=== PATIENT | female | born 1980 | race Caucasian/White ===

== ENCOUNTER 2018-07-13 14:55 | Outpatient (REF) | payer MEDICAID, SELFPAY ==
[2018-07-13 20:34] LABS: Abs Immature Grans 0.03 k/cumm (0.0-0.09); Absolute Basophil Count 0.06 k/cumm (0.0-0.2); Absolute Eosinophil Count 0.17 k/cumm (0.0-0.7); Absolute Neutrophil Count 5.12 k/cumm (1.2-6.7); Basophils % 0.8; Eosinophils % 2.3; HCT 35.2 % (36.0-46.0); HGB 11.2 g/dL (12.0-15.5); Immature Grans % 0.4; Lymphocytes % 22.7; Mean Corp. HGB Concentration 31.8 g/dL (32.0-36.0); Mean Corpuscular Hemoglobin 30.1 pg (27.0-33.0); Mean Corpuscular Volume 94.6 fL (80-95); Mean Platelet Volume 10.5 fL (8.0-11.0); Monocytes % 5.3; Neutrophils % 68.5; Platelet Count 307 x1000/uL (130-400); RBC 3.72 m/cumm (4.00-5.20); RBC Distribution Width 12.9 % (11.7-14.6); Reticulocyte 1.7 % (0.5-2.4); White Blood Cell Count 7.48 k/cumm (4.4-10.8)
[2018-07-13 20:37] LABS: Bilirubin Negative (Negative); Blood Negative (Negative); Clarity Clear; Glucose Negative (Negative); Ketones Negative (Negative); Leukocyte Esterase Negative (Negative); Nitrite Negative (Negative); Specific Gravity >= 1.030 (1.005-1.025); Urobilinogen 0.2 EU/dL (Up TO 0.2); pH 5.5 (5-8)
[2018-07-13 20:57] LABS: ALT 24 U/L (12-78); AST 15 U/L (15-37); Albumin 3.7 g/dL (3.4-5.0); Alkaline Phosphatase 94 U/L (46-116); Anion Gap 8.3 mmol/L (3-11); BUN 16 mg/dL (7-18); Bilirubin, Total 0.2 mg/dL (0.2-1.0); CO2 26.7 mmol/L (21.0-32.0); CREATININE 1.12 mg/dL (0.55-1.02); Chloride 105 mmol/L (98-107); Estimated GFR 54.16 (mL/min/1.73m2); Ferritin 48 ng/mL (8-388); Glucose 85 mg/dL (70-100); Potassium 3.9 mmol/L (3.5-5.1); Sodium 140 mmol/L (136-145); TSH (W/Ref FT4) 1.91 uIU/mL (0.358-3.74); Total Protein 7.4 g/dL (6.4-8.2)
== END 2018-07-13 15:15 ==
LOC: NCHCN 14:55
PROVIDERS: PCP Nurse Practitioner Family; Visit Provider Family Medicine
DX: D64.9 Anemia, unspecified (principal); N28.9 Disorder of kidney and ureter, unspecified
CPT/HCPCS: 80053; 81003; 82728; 84443; 85025; 85045

== ENCOUNTER 2019-11-07 11:25 | Emergency (ER) | payer MEDICAID, SELFPAY ==
[2019-11-07] VITALS (32 sets, daily range): BP systolic 86–121; BP diastolic 63–85; PULSE 69–89; RESP 1–24; TEMP 36.7–37; O2SAT 92–100
--- NOTE | 2019-11-07 11:39 | W.ED.GENAD ---
Discharge Plan Disposition Patient Disposition: HOME Condition: Improving Discharge Details Chief Complaint: Chest Pain Clinical Impression: Acute bronchitis with bronchospasm Primary Care Provider: None,None ED Provider: Gio Argueta Home Meds and New Rx's Prescriptions: New doxycycline hyclate 100 mg capsule 100 mg PO BID 10 Days Qty: 20 RF: 0 prednisone 20 mg tablet 40 mg PO DAILY 5 Days Qty: 10 RF: 0 Continued topiramate [Topamax] 100 mg Tablet 100 mg PO QHS RF: 0 fexofenadine-pseudoephedrine [Muriel-D 12 Hour] 60-120 mg Tablet Extended Release 12 Hr 1 tab PO Q12H PRNRF: 0 bupropion HCl [Wellbutrin XL] 300 mg Tablet Extended Release 24 Hr 300 mg PO QHS RF: 0 Discharge Instructions Instructions: Acute Bronchitis (ED) Additional Instructions: May use provided inhaler 2 puffs every 4 hours as needed during times of illness. Continue efforts to decrease cigarette use. Return for worsening discomfort or any other acute concerns. May use Tylenol and/or ibuprofen as needed for discomfort or fever. Medical Decision Making 38-year-old female smoker presents with 5+ days of cough, congestion, production of sputum and achy, ill-defined left-sided chest discomfort with associated shortness of breath. She is not had any prolonged immobilization, travel and her exam does not reveal lower extremity edema. She arrives to the ER normal vital signs, oxygenation of 95% on room air, speaking in full sentences. Differentialincludes COPD exacerbation, bronchitis, must exclude PE. Patient had IV access established, laboratories obtained, referred for chest x-ray. She was given Solu-Medrol and an inhaled DuoNeb. Patient improved following steroids and DuoNeb. Her oxygenation remained normal as did her vital signs. Laboratories revealed normal CBC, chemistries are unremarkable but note of potassium 3.3. Troponin is negative as is d-dimer. Chest x-ray without focal infiltrate. Patient remains improved. Given an albuterol inhaler with bedside teaching. I will treat her for bronchitis and bronchospasm. She understands homecare including use of oral antibiotics and systemic burst of steroids with prednisone. ECG Data Attestation: I personally reviewed and interpreted this ECG (s) as follows: Interpretation: Normal sinus rhythm with a rate of 81, the QRS is narrow, first-degree AV block present with MN interval of 230, no ST segment elevation appreciated. HPI General Mode of arrival: ambulatory. Date/Time Provider Initiated Documentation: 11/07/19 11:29. Limitations to Documentation: no limitations. Information obtained by: patient and family. History of Present Illness 38 year old F presents to the emergency department with the chief complaint of Cough and left discomfort, described as moderate, Quality is described as dull and constant, and is localized to the chest and left. Patient reports no radiation. Patient started experiencing this unknown (Patient states 4 to 7 days but that she is quite unsure) and it has been constant. No relieving factors improve symptom(s), No exacerbating factors reported . Patient notes cough and shortness of breath; denies fever/chills. Patient did receive the following treatments prior to arrival, none Related Data Home Medications Medication Instructions Recorded Confirmed bupropion HCl [Wellbutrin XL] 300 mg PO QHS 11/07/19 11/07/19 doxycycline hyclate 100 mg PO BID 10 Days #20 cap 11/07/19 fexofenadine-pseudoephedrine 1 tab PO Q12H PRN 11/07/19 11/07/19 [Muriel-D 12 Hour] prednisone 40 mg PO DAILY 5 Days #10 tab 11/07/19 topiramate [Topamax] 100 mg PO QHS 11/07/19 11/07/19 Previous Rx's Medication Instructions Recorded doxycycline hyclate 100 mg PO BID 10 Days #20 cap 11/07/19 prednisone 40 mg PO DAILY 5 Days #10 tab 11/07/19 Allergies Allergy/AdvReac Type Severity Reaction Status Date / Time acetaminophen [From Vicodin] Allergy Unverified 11/07/19 13:00 codeine Allergy Unverified 11/07/19 13:00 hydrocodone [From Vicodin] Allergy Unverified 11/07/19 13:00 Review of Systems Narrative: Denies lower extremity pain or swelling. No prolonged travel. No fever. Continues to smoke 4 to 5 cigarettes/day. 8 systems reviewed and otherwise negative [facility] Social History Smoking/Tobacco Use Status: Current every day Tobacco Type: cigarettes Alcohol Intake: never Drug use: Never Substance use type: does not use Do you feel safe at home: Yes Do you feel safe in your relationship?: Yes Exam Narrative Exam Narrative: GEN: awake, alert, oriented 3. Pleasant, well groomed, interactive. HEAD: Normocephalic, atraumatic ENT: Mucous membranes moist, oropharynx unremarkable, External ear exam unremarkable EYES: PERRL, EOMI NECK: Full ROM, no HEVER, no menigismus CHEST/RESP: Nontender, bilateral end expiratory wheeze and diminished breath sounds throughout CARDIOVASCULAR: RRR, no murmur, rub nii. 2+ Rad pulse bilateral ABDOMEN: Soft, nontender, no mass. +Bowel sounds EXT: Full ROM, no edema, no rash Neuro: Grossly normal neurologic exam, conversant, interactive. Psych: Speech fluent, thoughts congruent, affect normal
[2019-11-07] MEDS: Normal Saline Flush 10 ML SYR IVP (12:03)
[2019-11-07] MEDS: methylPREDNISolone SUCC 125 MG VIAL IVP (12:03)
[2019-11-07] MEDS: Albuterol/Ipratropium 3 ML UPD VIAL UPD (12:04)
[2019-11-07 12:45] LABS: Abs Immature Grans 0.02 k/cumm (0.0-0.09); Absolute Basophil Count 0.08 k/cumm (0.0-0.2); Absolute Eosinophil Count 0.27 k/cumm (0.0-0.7); Absolute Lymphocyte Count 1.35 k/cumm (1.2-3.4); Absolute Monocyte Count 0.36 k/cumm (0.11-0.7); Absolute Neutrophil Count 3.57 k/cumm (1.2-6.7); Basophils % 1.4; Eosinophils % 4.8; HCT 36.8 % (36.0-46.0); HGB 12.2 g/dL (12.0-15.5); Immature Grans % 0.4 %; Lymphocytes % 23.9; Mean Corp. HGB Concentration 33.2 g/dL (32.0-36.0); Mean Corpuscular Hemoglobin 29.9 pg (27.0-33.0); Mean Corpuscular Volume 90.2 fL (80-95); Monocytes % 6.4; Neutrophils % 63.1; Platelet Count 282 x1000/uL (130-400); RBC 4.08 m/cumm (4.00-5.20); RBC Distribution Width 13.2 % (11.7-14.6); White Blood Cell Count 5.65 k/cumm (4.4-10.8)
[2019-11-07 12:59] LABS: ALT 19 U/L (14-59); AST 13 U/L (15-37); Albumin 3.8 g/dL (3.4-5.0); Alkaline Phosphatase 99 U/L (46-116); Anion Gap 9.4 mmol/L (3-11); BUN 16 mg/dL (7-18); Bilirubin, Total 0.4 mg/dL (0.2-1.0); CO2 26.6 mmol/L (21.0-32.0); CREATININE 1.08 mg/dL (0.55-1.02); Calcium 9.4 mg/dL (8.5-10.1); Chloride 103 mmol/L (98-107); Estimated GFR 56.19 (mL/min/1.73m2); Glucose 101 mg/dL (74-106); Magnesium 1.9 mg/dL (1.8-2.4); Potassium 3.3 mmol/L (3.5-5.1); Sodium 139 mmol/L (136-145); Total Protein 7.8 g/dL (6.4-8.2)
[2019-11-07 13:02] LABS: Troponin I < 0.05 ng/Ml (<0.06)
--- NOTE | 2019-11-07 13:14 | DI.RAD_ITS ---
EXAM: XR CHEST 2V PA LATERAL CLINICAL HISTORY: Cough, sputum, wheeze. TECHNIQUE: 2D digital imaging was performed. COMPARISON: No exams were available for comparison FINDINGS: LUNGS: Clear. No pleural abnormality seen. HEART: Normal. MEDIASTINUM: Normal. OTHER FINDINGS:Normal. BONE:Normal. IMPRESSION: No acute pulmonary findings.
[2019-11-07 13:17] LABS: D-Dimer 358 ng/mlFEU (<500)
[2019-11-07] MEDS: Albuterol HFA 8 GM 60 PUFF INH IH (14:19)
== END 2019-11-07 14:31 | disposition home or self-care (01) ==
PROVIDERS: Emergency Provider Emergency Medicine
DX: J20.9 Acute bronchitis, unspecified (principal); F17.210 Nicotine dependence, cigarettes, uncomplicated
CPT/HCPCS: 80053; 93005; 94640; 96374; 99284; 71046; 83735; 84484; 85025; 85379; 93010; 99283; J2930; J7620

== ENCOUNTER 2019-12-26 11:21 | Outpatient (REF) | payer MEDICAID, SELFPAY ==
[2019-12-26 19:54] LABS: Hemoglobin A1C 6.1 % (3.8-5.6)
[2019-12-26 20:00] LABS: ALT 23 U/L (14-59); AST 14 U/L (15-37); Albumin 3.9 g/dL (3.4-5.0); Alkaline Phosphatase 81 U/L (46-116); Anion Gap 8.7 mmol/L (3-11); BUN 15 mg/dL (7-18); Bilirubin, Total 0.2 mg/dL (0.2-1.0); CO2 26.3 mmol/L (21.0-32.0); CREATININE 1.23 mg/dL (0.55-1.02); Calcium 9.2 mg/dL (8.5-10.1); Calculated LDL 179 mg/dL (<100); Chloride 104 mmol/L (98-107); Cholesterol 283 mg/dL (<200); Estimated GFR 48.12 (mL/min/1.73m2); Glucose 96 mg/dL (74-106); HDL Cholesterol 64 mg/dL (40-60); Potassium 4.1 mmol/L (3.5-5.1); Sodium 139 mmol/L (136-145); TSH (W/Ref FT4) 3.25 uIU/mL (0.36-3.74); Total Protein 7.1 g/dL (6.4-8.2); Triglyceride 200 mg/dL (<150)
[2019-12-26 20:14] LABS: Vitamin D 25 Total 14.9 ng/ml (30-100)
== END 2019-12-26 11:41 ==
LOC: NCHCN 11:21
PROVIDERS: Visit Provider Nurse Practitioner
DX: E78.1 Pure hyperglyceridemia (principal); E78.5 Hyperlipidemia, unspecified; E66.9 Obesity, unspecified; R73.09 Other abnormal glucose; Z13.21 Encounter for screening for nutritional disorder
CPT/HCPCS: 80053; 80061; 82306; 83036; 84443

== ENCOUNTER 2020-06-13 17:52 | Emergency (ER) | payer MEDICAID, SELFPAY ==
--- NOTE | 2020-06-13 18:04 | W.ED.GENAD ---
Discharge Plan Disposition Patient Disposition: HOME Condition: Good Discharge Details Chief Complaint: EarProblem Clinical Impression: Otitis media Primary Care Provider: None,None ED Provider: Mar Rodriguez Home Meds and New Rx's Prescriptions: New amoxicillin 875 mg tablet 875 mg PO BID Qty: 14 RF: 0 Continued topiramate [Topamax] 100 mg Tablet 100 mg PO QHS RF: 0 fexofenadine-pseudoephedrine [Muriel-D 12 Hour] 60-120 mg Tablet Extended Release 12 Hr 1 tab PO Q12H PRNRF: 0 bupropion HCl [Wellbutrin XL] 300 mg Tablet Extended Release 24 Hr 300 mg PO QHS RF: 0 Discharge Instructions Instructions: Ear Infection (ED) Additional Instructions: Encourage water intake. Tylenol and/or Ibuprofen as needed for discomfort. Please take the antibiotics as prescribed. Even if symptoms improve, please take entire course. Please follow-up with primary care next week for reevaluation. If you develop any new or worsening symptoms please seek care urgently once again Referrals: Marissa Robles [NURSE PRACTITIONER] - Discharge Data Discharge Date/Time-TO BE ENTERED AT DEPARTURE: 06/13/20 18:30 Medical Decision Making Marshall is a pleasant 39 year old female presenting today for evaluation of right sided ear pain that began 3 weeks ago. Pain has waxed/waned but is now persistant and worsening. Denies fevers/chills. Has not noted drainage. Has had multiple episodes of otitis media, has tympanoplasty tubes bilaterally. On exam, nontoxic. Otitis media with purulent drainage from right tube. No mastoid tenderness. She reports her ENT physician typically treats her with amoxicillin with good results, it has been 1 year since last treated. Will do the same. Advised f/u. Discussed new/worsening symptoms that should prompt her to seek care urgently oce again. All questions and concerns addressed. HPI General Mode of arrival: ambulatory. Date/Time Provider Initiated Documentation: 06/13/20 18:04. Limitations to Documentation: no limitations. Information obtained by: patient and RN notes reviewed. History of Present Illness 39 year old F presents to the emergency department with the chief complaint of right ear pain, described as moderate and similar to prior episodes (reports long history of recurrent otitis media), with intensity rated at 7. Quality is described as aching, and is localized to the right. Patient reports no radiation. Patient started experiencing this day(s) and it has been constant. No relieving factors improve symptom(s), No exacerbating factors reported . Patient notes no other symptoms. and headaches; denies fever/chills, rash and shortness of breath. Patient did receive the following treatments prior to arrival, none Related Data Home Medications Medication Instructions Recorded Confirmed bupropion HCl [Wellbutrin XL] 300 mg PO QHS 11/07/19 11/07/19 fexofenadine-pseudoephedrine 1 tab PO Q12H PRN 11/07/19 11/07/19 [Muriel-D 12 Hour] topiramate [Topamax] 100 mg PO QHS 11/07/19 11/07/19 amoxicillin 875 mg PO BID #14 tab 06/13/20 Previous Rx's Medication Instructions Recorded amoxicillin 875 mg PO BID #14 tab 06/13/20 Allergies Allergy/AdvReac Type Severity Reaction Status Date / Time acetaminophen [From Vicodin] Allergy Unverified 06/13/20 18:26 codeine Allergy Unverified 06/13/20 18:26 hydrocodone [From Vicodin] Allergy Unverified 06/13/20 18:26 General ABIGAIL: 2 Review of Systems Constitutional Constitutional: Reports as per HPI, Denies chills, Denies fever(s) and Denies headache(s) Eyes Eyes: Reports as per HPI, Denies eye discharge and Denies irritation ENT Ears, Nose, Mouth, and Throat: Reports as per HPI and Denies headache(s) Cardiovascular Cardiovascular: Reports as per HPI, Denies chest pain and Denies dyspnea Respiratory Respiratory: Reports as per HPI and Denies dyspnea Gastrointestinal Gastrointestinal: Reports as per HPI, Denies abdominal pain, Denies change in bowel habits, Denies nausea and Denies vomiting Integumentary/Breasts Skin/Breast: Reports as per HPI and Denies rash Neurologic Neurologic: Reports as per HPI and Denies headache(s) REPLACED BY [facility] Social History Smoking/Tobacco Use Status: Current every day Tobacco Type: cigarettes Alcohol Intake: never Drug use: Never Substance use type: does not use Do you feel safe at home: Yes Do you feel safe in your relationship?: Yes Exam Const General: cooperative, healthy appearing, comfortable, no acute distress, well developed and well groomed Nutritional Appearance: average body habitus and well nourished Orientation: alert and awake [facility] Head: normal to inspection, normocephalic and atraumatic Ears: hearing grossly normal bilaterally, external ears normal, TM normal on the right (tube in place with purulent drainage, swelling), TM normal on the left (tube in place), mastoids normal, normal mastoids bilaterally and no periauricular adenopathy General nose exam: external nose normal and nares normal Face and sinus: normal facial exam, sinuses nontender and face symmetric Mouth: oral mucosae normal, lip normal, tongue normal, oropharynx normal and moist mucous membranes Teeth and gingiva: dentition normal Throat: posterior oropharynx normal, tonsils normal and uvula midline Eyes General: appearance normal, both eyes and all related structures Neck Neck: normal visual inspection, full ROM, no lymphadenopathy and no meningeal signs Resp Effort & Inspection: normal respiratory effort, able to speak in complete sentences and no respiratory distress Auscultation: clear to auscultation bilaterally, no rales, no rhonchi and no wheezes Cardio Rate: regular rate Rhythm: regular rhythm Heart Sounds: S1 normal and S2 normal Skin General skin exam: no rashes or lesions noted Neuro General: patient alert and patient awake Cognition: normal cognition Speech: speech normal Gait: normal gait Psych Appearance: grossly normal and well kempt Mental Status: mental status grossly normal Speech and Movement: speech and movement normal
[2020-06-13 18:17] VITALS: BP 142/103; PULSE 91; RESP 14; TEMP 36.6; O2SAT 97
== END 2020-06-13 18:30 | disposition home or self-care (01) ==
PROVIDERS: Emergency Provider Physician Assistant
DX: H66.91 Otitis media, unspecified, right ear (principal)
CPT/HCPCS: 99283

== ENCOUNTER 2021-02-06 16:30 | Outpatient (REF) | payer MEDICAID, SELFPAY ==
[2021-02-06 19:06] LABS: HCT 37.9 % (36.0-46.0); HGB 12.5 g/dL (11.2-15.7); MCH 30.9 pg (27.0-33.0); MCV 93.8 fL (80-95); MPV 9.9 fL (8.0-11.0); Platelet Count 277 10^3/uL (130-400); RBC 4.04 10^6/uL (3.93-5.22); RDW 12.1 % (11.7-14.6); RDW-SD 41.7 fL
[2021-02-06 20:10] LABS: ALT 38 U/L (14-59); AST 23 U/L (15-37); Albumin 3.9 g/dL (3.4-5.0); Alkaline Phosphatase 67 U/L (46-116); Anion Gap 6.7 mmol/L (3-11); BUN 15 mg/dL (7-18); Bilirubin, Total 0.3 mg/dL (0.2-1.0); CO2 27.3 mmol/L (21.0-32.0); CREATININE 1.1 mg/dL (0.55-1.02); Calcium 9.4 mg/dL (8.5-10.1); Chloride 103 mmol/L (98-107); Estimated GFR 54.47 (mL/min/1.73m2); Ferritin 36 ng/mL (8-252); Folate 4.6 ng/mL (8.6-20.0); Glucose 106 mg/dL (74-106); Potassium 4.3 mmol/L (3.5-5.1); Sodium 137 mmol/L (136-145); TSH (W/Ref FT4) 2.44 uIU/mL (0.36-3.74); Total Protein 7.3 g/dL (6.4-8.2); Vitamin B12 357 pg/mL (193-986)
== END 2021-02-06 16:31 | disposition home or self-care (01) ==
LOC: NCHCN 16:30
PROVIDERS: PCP Family Medicine; Visit Provider Family Medicine
DX: D64.9 Anemia, unspecified (principal); R63.5 Abnormal weight gain; R73.03 Prediabetes
CPT/HCPCS: 80053; 85027; 82607; 82728; 82746; 83036; 84443

== ENCOUNTER 2021-03-05 03:29 | Outpatient (CLI) | payer MEDICAID, SELFPAY ==
[2021-03-05 09:35] LABS: HGB 12.6 g/dL (11.2-15.7); MCH 30.3 pg (27.0-33.0); MCHC 33.2 % (32.0-36.0); MCV 91.3 fL (80-95); MPV 9.7 fL (8.0-11.0); Platelet Count 298 10^3/uL (130-400); RBC 4.16 10^6/uL (3.93-5.22); RDW 12.5 % (11.7-14.6); RDW-SD 41.8 fL; WBC 6.32 10^3/uL (4.4-10.8)
== END 2021-03-05 03:30 | disposition home or self-care (01) ==
LOC: LBO 03:29
PROVIDERS: PCP Nurse Practitioner; Visit Provider Obstetrics & Gynecology Gynecology
DX: A63.0 Anogenital (venereal) warts (principal); Z20.822 Contact with and (suspected) exposure to COVID-19; Z01.818 Encounter for other preprocedural examination; Z01.812 Encounter for preprocedural laboratory examination
CPT/HCPCS: 36415; 85027; 86850; 86900; 86901; 87635

== ENCOUNTER 2021-03-07 12:20 | Day surgery (SDC) | payer MEDICAID, SELFPAY ==
[2021-03-07] VITALS (9 sets, daily range): BP systolic 87–134; BP diastolic 45–102; PULSE 86–103; RESP 9–18; TEMP 36.4–36.9; O2SAT 93–100; BMI 39.6
--- NOTE | 2021-03-07 13:12 | W.ANESPRE ---
General Info Date of Service Date Performed: 03/07/21 Height: 5 ft 5 in Weight: 108.2 kg Body Mass Index (BMI): 39.6 Surgical Procedure: Operation Date: 03/07/21 14:10 Proposed Procedures Side Surgeon p EXCISION OF LT VULVAR GENITAL WARTS Left Roro Jensen MD Meds Allergies and Home Medications Allergies Allergy/AdvReac Type Severity Reaction Status Date / Time acetaminophen [From Vicodin] Allergy Severe Itching Unverified 03/07/21 12:42 hydrocodone [From Vicodin] Allergy Severe Itching Unverified 03/07/21 12:42 codeine AdvReac Intermediate pt states Unverified 03/07/21 12:42 I get extremely hyper Home Medication Medication Instructions Recorded bupropion HCl [Wellbutrin XL] 300 mg PO QHS 11/07/19 fexofenadine-pseudoephedrine 1 tab PO Q12H PRN 11/07/19 [Muriel-D 12 Hour] albuterol sulfate [ProAir HFA] 2 puff INHALATION PRN PRN 03/07/21 omeprazole 40 mg PO DAILY 03/07/21 Current Visit Medications: Current Medications Generic Name Dose Route Start Last Admin Trade Name Freq PRN Reason Stop Dose Admin Ringer's Solution 1,000 mls @ 125 mls/hr 03/07/21 06:00 IV 04/05/21 23:59 INFUSION AKIL IV Miscellaneous Supplies 1 each 03/07/21 06:00 Iv Access IV 04/05/21 23:59 DIRECTED AKIL Sodium Chloride 0 ml 03/07/21 06:00 Normal Saline Flush 10 Ml Syr IV 04/05/21 23:59 PRN PRN Sodium Chloride 0 ml 03/07/21 06:00 Normal Saline 10 Ml Vial IJ 04/05/21 23:59 DIRECTED PRN Sterile Water 0 ml 03/07/21 06:00 Water,Injection,Sterile 10 Ml Vial IJ 04/05/21 23:59 DIRECTED PRN PFSH Active Problems Active Problems: Problem Status Onset Code Chronic infection of both ears H66.93 Tinnitus, bilateral H93.13 Condyloma acuminata A63.0 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 Hx of hysterectomy, total Z90.710 Depression F32.9 GERD (gastroesophageal reflux disease) K21.9 Tobacco use Z72.0 Urinary incontinence R32 Hyperlipidemia E78.5 Cervical disc disorder with radiculopathy M50.10 Asthma J45.909 Obstructive sleep apnea G47.33 Medical History Medical History Asthma Cervical disc disorder with radiculopathy Depression GERD (gastroesophageal reflux disease) Hyperlipidemia Obstructive sleep apnea pt denies this states she hasnt had it for 10 years Tobacco use Urinary incontinence Surgical History Surgical History (Updated 03/07/21 @ 12:56 by Katie Santos) History of carpal tunnel release of both wrists History of section Hx of appendectomy Hx of cholecystectomy Hx of hysterectomy, total Hx of shoulder surgery Left Hx of tonsillectomy Tobacco Smoking/Tobacco Use Status: Current every day Tobacco Type: cigarettes Alcohol Alcohol Intake: never Substance Use Substance use: Never Substance use type: does not use Prental History History 3 Para Hx # Term Pregnancies 3 Multiple births Hx # Pregnancies Ectopic pregnancies AB induced Hx Number of Living Children AB spontaneous Vital Signs and Lab Results Vital Signs Most Recent Vital Signs in EMR: Most Recent Vital Signs Temp Pulse Resp BP Pulse Ox 36.5 C 103 H 18 134/102 H 96 03/07/21 12:58 03/07/21 12:58 03/07/21 12:58 03/07/21 12:58 03/07/21 12:58 Lab Results Blood Type / Crossmatch: Patient ABO/Rh A Positive 03/05/21 09:12 03/05/21 Antibody Screen Negative 03/05/21 09:12 03/05/21 Complete Blood Count: White Blood Count 6.32 10^3/uL (4.4-10.8) 03/05/21 09:12 03/05/21 Red Blood Count 4.16 10^6/uL (3.93-5.22) 03/05/21 09:12 03/05/21 Hemoglobin 12.6 g/dL (11.2-15.7) 03/05/21 09:12 03/05/21 Hematocrit 38.0 % (36.0-46.0) 03/05/21 09:12 03/05/21 Platelet Count 298 10^3/uL (130-400) 03/05/21 09:12 03/05/21 Complete Metabolic Panel: Sodium Level 137 mmol/L (136-145) 02/06/21 13:45 02/06/21 Potassium Level 4.3 mmol/L (3.5-5.1) 02/06/21 13:45 02/06/21 Chloride Level 103 mmol/L (98-107) 02/06/21 13:45 02/06/21 Carbon Dioxide Level 27.3 mmol/L (21.0-32.0) 02/06/21 13:45 02/06/21 Blood Urea Nitrogen 15 mg/dL (7-18) 02/06/21 13:45 02/06/21 Creatinine 1.1 mg/dL (0.55-1.02) H 02/06/21 13:45 02/06/21 Calcium Level 9.4 mg/dL (8.5-10.1) 02/06/21 13:45 02/06/21 Albumin 3.9 g/dL (3.4-5.0) 02/06/21 13:45 02/06/21 Glucose Level 106 mg/dL (74-106) 02/06/21 13:45 02/06/21 Hemoglobin A1c 6.0 % (<5.7) H 02/06/21 13:45 02/06/21 Liver Function Panel: Alanine Aminotransferase (ALT/SGPT) 38 U/L (14-59) 02/06/21 13:45 02/06/21 Aspartate Amino Transf (AST/SGOT) 23 U/L (15-37) 02/06/21 13:45 02/06/21 Coagulation Panel: No Data to Display Cardiac Panel: No Data to Display Arterial Blood Gas: No Data to Display Venous Blood Gas: No Data to Display Pancreas Panel: No Data to Display Thyroid Panel: Thyroid Stimulating Hormone (TSH) 2.44 uIU/mL (0.36-3.74) 02/06/21 13:45 02/06/21 Infectious Disease: Coronavirus (COVID-19)(PCR) Negative (Negative) 03/05/21 10:18 03/05/21 Coronavirus 2019 Source Nasal/nares 03/05/21 10:18 03/05/21 Blood Cultures: No Data to Display Toxicology Panel: No Data to Display Panel: No Data to Display Anesthesia Assessment and Plan Anesthesia History Personal History: No History of Anesthesia Complications Family History: No Family History of Anesthesia Complications Exercise Tolerance Exercise Tolerance: Metabolic Equivalents>4 Pertinent Negatives Pertinent Negatives: No Symptoms of GERD Cardiac & Pulmonary Exam Cardiac Exam: Normal S1/S2 Heart Sounds Pulmonary Exam: Clear Bilateral Breath Sounds Airway Exam Known Difficult Airway: No Mallampati Class: 2 Mouth Opening: Normal (> 3cm) Thyromental Distance: Greater than 3 cm Neck Range of Motion: Full ROM Neck Circumference: Normal Teeth Condition: Normal Dentition ASA Classification ASA Score: ASA 3 Emergency Case?: No NPO Status NPO Status: NPO Clears >2 hours, Solids >8 hours Status Status: History of Hysterectomy Anesthesia Plan Anesthesia Technique: General Anesthesia Airway Planned: LMA Monitors Used: Standard Monitors
[2021-03-07] MEDS: Lactated Ringers 1,000 ML 125 ML IV (13:15)
[2021-03-07] MEDS: Bacitracin 30 GM TUBE (14:52)
--- NOTE | 2021-03-07 15:20 | W.PM.DSUDISC ---
Discharge Plan Disposition Patient Disposition: HOME Condition: Fair Discharge Details Reason For Visit: Fulguration of vulvar condyloma Attending Provider: Roro Jensen Primary Care Provider: Marissa Robles Home Meds and New Rx's Prescriptions: No Action fexofenadine-pseudoephedrine [Muriel-D 12 Hour] 60-120 mg Tablet Extended Release 12 Hr 1 tab PO Q12H PRNRF: 0 bupropion HCl [Wellbutrin XL] 300 mg Tablet Extended Release 24 Hr 300 mg PO QHS RF: 0 omeprazole 40 mg capsule,delayed release(DR/EC) 40 mg PO DAILY RF: 0 albuterol sulfate [ProAir HFA] 90 mcg/actuation HFA aerosol inhaler 2 puff INHALATION PRN PRNRF: 0 Discharge Instructions Additional Instructions: Apply bacitracin ointment several times a day to the treatment areas. You may wash and shower and gently pat dry the vulva. Take Ibuprofen 600mg or 325mg of Acetaminophen every 6 hours for pain. follow up with Dr. Jensen at your scheduled time in 2 weeks. Stand Alone Forms: Anesthesia Discharge Inst., DSU Post Gynecology Surgery Referrals: Roro Jensen MD [ [facility] STAFF PHYSICIAN] - 03/14/21 2:40 pm Activity:: Activity as Tolerated Diet:: As Tolerated Discharge Orders Discharge Orders: Discharge Order (Routine); Ordered 03/07/21 Ordered By: Roro Jensen DS: Diagnosis Discharge Diagnosis (1) Condyloma acuminata: Status: Acute
--- NOTE | 2021-03-07 15:31 | W.ANESPOSTOP ---
Postoperative Evaluation Date, Time and Location Date Performed: 03/07/21 Time Performed: 15:31 Patient Location: PACU Vital Signs Most Recent Imported Vital Signs: Most Recent Vital Signs Temp Pulse Resp BP Pulse Ox 36.9 C 95 H 9 L 108/64 97 03/07/21 15:25 03/07/21 15:25 03/07/21 15:25 03/07/21 15:25 03/07/21 15:25 Pain Score Most Recent Pain Score: Most Recent Pain Score Pain Level 0 03/07/21 12:58 Assessment Mental Status: Arousable with meaningful communication Airway and Respiratory Function: Patent airway with normal (patient baseline) respiratory exam Cardiovascular Function: Hemodynamically Stable Hydration Status: Adequately Hydrated Nausea & Vomiting: No Nausea or Vomiting Pain: Pt. Denies Any Pain Peripheral Nerve Block: Patient did not receive a nerve block
--- NOTE | 2021-03-07 16:03 | W.PM.OP ---
Date of service: 03/07/21 Time of Service: 16:03 Operative Note Operative Note DATE OF PROCEDURE: 03/07/21 PRE-OP DIAGNOSIS: Condyloma acuminatum of vulva and perianal region PROCEDURE: Dessication of vulvar condyloma lesions using electrocautery. SURGEON: Roro Jensen ANESTHESIA TYPE: General LMA/ETT Refer to Anesthesia Record ESTIMATED BLOOD LOSS: 0 PATHOLOGY: none sent COMPLICATIONS: None Patient was transported to: PACU Patient's condition: stable Indications: Aylin is a 40-year-old P3 female who was referred by Kayley Richards MD for symptomatic genital warts not amenable to treatment in the office. The warts themselves were not particularly large but were present on the multiple locations on the left vulva and perianal region. Findings: Approximately twenty 2 mm flat condyloma lesions occupying left labia labial fourchette crural fold and perianal region. Procedure Description: Patient was brought to the operating room placed in the dorsal supine position and laryngeal mask anesthesia was administered without difficulty. She was then placed in the dorsolithotomy position in yellowfin stirrups after application of SCDs. Surgical timeout was performed. She was prepped and draped in the usual sterile fashion. 1% Lidocaine with a dilute solution of Epinephrine as infiltrated under each condyloma lesion. A Bovie electrocautery with a needlepoint tip and current of 30/30 blend was then used to dessicate each lesion to the dermal layer of the skin. All sites were hemostatic at the completion of the procedure. Bacitracin ointment was applied to the treatment sites. Patient was placed in the supine position, awakened from anesthesia, extubated and transported to recovery area in stable condition. All sponge, laps, and needle counts were correct x2.
== END 2021-03-07 16:35 | disposition home or self-care (01) ==
PROVIDERS: PCP Nurse Practitioner; Visit Provider Obstetrics & Gynecology Gynecology
PROC: (CPT 56740; principal; 2021-03-07 14:00)
DX: A63.0 Anogenital (venereal) warts (principal)
CPT/HCPCS: 56501; J1100; J1885; J2001; J2250; J2405; J2704

== ENCOUNTER 2021-04-30 14:59 | Outpatient (REF) | payer MEDICAID, SELFPAY ==
[2021-04-30 22:02] LABS: HCT 38.2 % (36.0-46.0); HGB 12.4 g/dL (11.2-15.7); MCH 29.2 pg (27.0-33.0); MCHC 32.5 % (32.0-36.0); MCV 89.9 fL (80-95); MPV 10.4 fL (8.0-11.0); Platelet Count 314 10^3/uL (130-400); RBC 4.25 10^6/uL (3.93-5.22); RDW 12.7 % (11.7-14.6); RDW-SD 41.9 fL; WBC 5.81 10^3/uL (4.4-10.8)
[2021-04-30 22:32] LABS: Vitamin D 25 Total 14.5 ng/mL (30-100)
[2021-04-30 22:39] LABS: Ferritin 40 ng/mL (8-252); Folate 3.4 ng/mL (8.6-20.0); Vitamin B12 305 pg/mL (193-986)
[2021-05-06 14:32] LABS: IgA 179 mg/dL (85-499); Interpretation (See Note); Tissue Transglutaminase IgA <1.2 U/mL (<4.0)
== END 2021-04-30 15:00 | disposition home or self-care (01) ==
LOC: NCHCN 14:59
PROVIDERS: PCP Nurse Practitioner; Visit Provider Family Medicine
DX: R53.83 Other fatigue (principal); D52.9 Folate deficiency anemia, unspecified; E55.9 Vitamin D deficiency, unspecified
CPT/HCPCS: 82306; 82784; 83516; 85027; 82607; 82728; 82746

== ENCOUNTER 2021-06-05 10:09 | Emergency (ER) | payer MEDICAID, SELFPAY ==
[2021-06-05] VITALS (17 sets, daily range): BP systolic 108–164; BP diastolic 85–120; PULSE 86–112; RESP 18; TEMP 36.1–36.2; O2SAT 95–97
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
[2021-06-05 10:24] LABS: Bilirubin Negative (Negative); Blood Negative (Negative); Clarity Clear (Clear); Glucose 100 mg/dL (Negative); Ketones Negative (Negative); Leukocyte Esterase Negative (Negative); Nitrite Negative (Negative); Specific Gravity >= 1.030 (1.005-1.025); Urobilinogen 0.2 EU/dL (Up TO 0.2); pH 5.5 (5-8)
[2021-06-05 11:01] LABS: Abs Immature Grans 0.03 10^3/uL (0.0-0.06); Absolute Basophil Count 0.08 10^3/uL (0.0-0.2); Absolute Eosinophil Count 0.13 10^3/uL (0.0-0.7); Absolute Lymphocyte Count 1.84 10^3/uL (1.2-3.4); Absolute Monocyte Count 0.47 10^3/uL (0.1-0.8); Absolute Neutrophil Count 4.23 10^3/uL (1.2-6.7); Basophils % 1.2; Eosinophils % 1.9; HGB 12.3 g/dL (11.2-15.7); Immature Grans % 0.4; Lymphocytes % 27.1; MCHC 32.4 % (32.0-36.0); MCV 89.6 fL (80-95); MPV 9.9 fL (8.0-11.0); Monocytes % 6.9; Neutrophils % 62.5; Nucleated RBC 0 %; Platelet Count 295 10^3/uL (130-400); RBC 4.24 10^6/uL (3.93-5.22); RDW 12.8 % (11.7-14.6); RDW-SD 42.3 fL; WBC 6.78 10^3/uL (4.4-10.8)
[2021-06-05] MEDS: Ketorolac 30 MG/ML VIAL IVP (11:01)
[2021-06-05] MEDS: Lidocaine 5% Patch 1 PATCH TP (11:01)
[2021-06-05 11:21] LABS: ALT 41 U/L (14-59); AST 22 U/L (15-37); Albumin 3.8 g/dL (3.4-5.0); Alkaline Phosphatase 66 U/L (46-116); Anion Gap 6.3 mmol/L (3-11); BUN 15 mg/dL (7-18); Bilirubin, Total 0.3 mg/dL (0.2-1.0); CO2 26.7 mmol/L (21.0-32.0); Calcium 9.1 mg/dL (8.5-10.1); Chloride 103 mmol/L (98-107); Glucose 130 mg/dL (74-106); Lipase 129 U/L (73-393); Sodium 136 mmol/L (136-145); Total Protein 7.5 g/dL (6.4-8.2)
== END 2021-06-05 12:57 | disposition home or self-care (01) ==
PROVIDERS: Emergency Provider Physician Assistant; PCP Nurse Practitioner
DX: R07.82 Intercostal pain (principal)
CPT/HCPCS: 36415; 80053; 83690; 96374; 99284; 81003; 85025; 99283; J1885

== ENCOUNTER 2021-06-07 11:27 | Outpatient (CLI) | payer MEDICAID, SELFPAY ==
--- NOTE | 2021-06-07 11:34 | DI.RAD_ITS ---
Exam(s) XR RIBS LT W PA LAT CHEST EXAM: XR RIBS LT W PA LAT CHEST CLINICAL HISTORY: LT SIDED RIB PAIN, R07.81 TECHNIQUE: 2D digital imaging was performed. COMPARISON: No exams were available for comparison FINDINGS: MEDIASTINUM: Normal. HEART: Normal. PULMONARY VASCULATURE: Normal. LUNGS: Clear. PLEURAL SPACE: No pleural effusion or pneumothorax. BONE:Normal. LEFT RIBS: Normal. OTHER FINDINGS:Normal. IMPRESSION: 1. No acute pulmonary findings. 2. Unremarkable left ribs. DATA REPOSITORY: RADIATION DOSE DELIVERED:
== END 2021-06-07 11:47 ==
PROVIDERS: PCP Nurse Practitioner; Visit Provider Physician Assistant Medical
DX: R07.81 Pleurodynia (principal)
CPT/HCPCS: 71046; 71100

== ENCOUNTER 2021-08-29 10:52 | Emergency (ER) | payer MEDICAID, SELFPAY ==
[2021-08-29] VITALS (38 sets, daily range): BP systolic 130–162; BP diastolic 81–114; PULSE 82–112; RESP 9–20; TEMP 36.1–36.2; O2SAT 93–99
--- NOTE | 2021-08-29 10:45 | RT.EKG_ITS ---
APPROVED REPORT Exam: Resting ECG Reason for Exam: chest pain Patient Location: E HR:105 bpm ECG Measurements Heart Rate 105 AXIS MS 215 P 48 QRSd 88 QRS 46 QT 332 T 16 QTc 439 Conclusion Sinus tachycardia...rate> 99 Prolonged MS interval...MS >205, V-rate 91-120. Sinus. No STEMI. I have reviewed and interpreted ECG and agree with software generated interpretation.
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
[2021-08-29 11:38] LABS: Abs Immature Grans 0.03 10^3/uL (0.0-0.06); Absolute Basophil Count 0.06 10^3/uL (0.0-0.2); Absolute Eosinophil Count 0.08 10^3/uL (0.0-0.7); Absolute Lymphocyte Count 1.48 10^3/uL (1.2-3.4); Absolute Monocyte Count 0.53 10^3/uL (0.1-0.8); Absolute Neutrophil Count 4.25 10^3/uL (1.2-6.7); Basophils % 0.9; Eosinophils % 1.2; HCT 37.4 % (36.0-46.0); Immature Grans % 0.5; MCH 28.9 pg (27.0-33.0); MCHC 32.1 % (32.0-36.0); MCV 90.1 fL (80-95); MPV 9.9 fL (8.0-11.0); Monocytes % 8.2; Neutrophils % 66.2; Nucleated RBC 0 %; Platelet Count 278 10^3/uL (130-400); RBC 4.15 10^6/uL (3.93-5.22); RDW 13.1 % (11.7-14.6); RDW-SD 43.3 fL; WBC 6.43 10^3/uL (4.4-10.8)
[2021-08-29 11:56] LABS: ALT 43 U/L (14-59); AST 20 U/L (15-37); Albumin 3.9 g/dL (3.4-5.0); Alkaline Phosphatase 75 U/L (46-116); Anion Gap 7.6 mmol/L (3-11); BUN 21 mg/dL (7-18); Bilirubin, Total 0.4 mg/dL (0.2-1.0); CO2 27.4 mmol/L (21.0-32.0); Calcium 9.2 mg/dL (8.5-10.1); Chloride 103 mmol/L (98-107); Glucose 128 mg/dL (74-106); Sodium 138 mmol/L (136-145); Total Protein 7.8 g/dL (6.4-8.2)
[2021-08-29 11:57] LABS: Troponin I < 0.05 ng/mL (<0.06)
--- NOTE | 2021-08-29 12:15 | DI.CT_ITS ---
Exam(s) CT CHEST PE CTA EXAM: CT CHEST PE CTA CLINICAL HISTORY: L sided chest pain, r/o PE. TECHNIQUE: Imaging Protocol: CT angiography of the chest was performed using pulmonary embolus jarrell col. Multi planar reconstructions were performed. CONTRAST MATERIAL: Intravenous: Omnipaque 350 Contrast volume: 100 cc COMPARISON: CR XR RIBS LT W PA LAT CHEST from 06/07/2021 CR XR RIBS LT W PA LAT CHEST from 06/07/2021 FINDINGS: CHEST: PULMONARY ARTERIES: There are no intraluminal filling defects to suggest acute pulmonary emboli. LUNGS: There are no infiltrates nor evidence of pulmonary infarction.. There is a 6 millimeter noncal cified nodule in the right lower lobe lateral basal segment. In the opposite-left lung there is a 5 millimeter noncalcified nodule in the lateral basal segment of the left lower lobe. There is also mi ld focal pleural thickening in the left lung base in the posterior basal segment, measuring 8 by 3 mi llimeters. There are no pleural effusions. No focal findings in the trachea and mainstem bronchi. MEDIASTINUM: There is no hilar nor mediastinal adenopathy. Visualized thyroid unremarkable. CARDIAC: Heart size is upper normal. There is no pericardial effusion.Caliber of the thoracic aorta is within normal limits. No dissection there is no significant shift of the interventricular septum. PARTIALLY VISUALIZED UPPERMOST ABDOMEN: No adrenal findings. No splenomegaly. Hepatic steatosis not ed. Gallbladder surgically absent. OSSEOUS: No significant osseous lesions.. IMPRESSION: 1. No evidence of acute pulmonary emboli. No evidence of pulmonary infarction.No pleural effusions. 2. There is a solitary noncalcified small nodule in each lung. There is a 6 millimeter nodule in the right lower lobe and a 5 millimeter nodule in left lower lobe. Also focal area of pleural thickenin g in the left lower lobe measuring 8 x 3 millimeters. 3. No intrathoracic adenopathy. Incidental upper abdominal findings as described above. Recommend follow up CT scan in 6 months, given the incidental lung nodules noted. RADIATION DOSE DELIVERED: 562.43mGy.cm Total DLP DATA REPOSITORY: All CT scans at this facility are submitted to the National Radiology Data Registry (NRDR) Dose Index Registry (DIR) with the [employer] ([employer]). RADIATION OPTIMIZATION: All CT scans at this facility use at least one of these dose optimization te chniques: automated exposure control; mA and/or kV adjustment per patient size (includes targeted exa ms where dose is matched to clinical indication); or iterative reconstruction.
[2021-08-29] MEDS: Normal Saline 1,000 ML 1000 ML IV (12:35)
[2021-08-29] MEDS: Ketorolac 30 MG/ML VIAL IVP (12:37)
[2021-08-29] MEDS: Lidocaine 5% Patch 1 PATCH TP (12:40)
[2021-08-29] MEDS: Normal Saline - Diluent 50 ML VIAL IV (13:09)
[2021-08-29] MEDS: Omnipaque 350 MG/ML 100 ML BTL IJ (13:09)
[2021-08-29 14:39] LABS: Troponin I < 0.05 ng/mL (<0.06)
[2021-08-29] MEDS: predniSONE 20 MG TAB 60 MG PO (15:14)
== END 2021-08-29 15:20 | disposition home or self-care (01) ==
PROVIDERS: Emergency Provider Physician Assistant; PCP Nurse Practitioner
DX: R07.9 Chest pain, unspecified (principal)
CPT/HCPCS: 36415; 71275; 80053; 93005; 96361; 96374; 99285; 83735; 84484; 85025; 93010; 99284; J1885; J3490; J7512

== ENCOUNTER → 2022-03-03 00:32 | Outpatient (CLI) | payer MEDICAID, SELFPAY ==
--- NOTE | 2022-03-03 13:45 | DI.CT_ITS ---
Exam(s) CT CHEST WO EXAM: CT CHEST WO CLINICAL HISTORY: 6-MO F/U MULTIPLE PULMONARY NODULES, R91.8 TECHNIQUE: Imaging Protocol: Axial computed tomography images with coronal and sagittal reformatted images were created and reviewed CONTRAST MATERIAL: Intravenous: Omnipaque 350 Contrast volume:Noncontrast. COMPARISON: CT CT CHEST PE CTA from 08/29/2021 FINDINGS: Tracheobronchial tree: No bronchiectasis or mucous plugging. Mediastinum and Rebecca: No dominant adenopathy or fluid collection. Pulmonary parenchyma: Decreased pro minence of a pulmonary nodule in the lateral right lower lobe measuring 5 millimeters. Stable 4 mil limeter nodule lateral left lower lobe. No new nodules. No consolidation . Pleura: No effusion or pneumothorax. Heart: The heart is not dilated. No coronary artery calcifications are seen. Aorta: Thoracic aorta non-dilated. Upper abdomen: Status post cholecystectomy. Mild fatty infiltration of liver Lymph nodes: Within normal limits. Bones: Mild degenerative changes upper thoracic spine. Soft tissues: Unremarkable. IMPRESSION: Stable bilateral lower lobe pulmonary nodules. For a low risk patient, no further follow-up required. For a high risk patient recommend CT in 12 mo nths. RADIATION DOSE DELIVERED: 776.15mGy.cm Total DLP DATA REPOSITORY: All CT scans at this facility are submitted to the National Radiology Data Registry (NRDR) Dose Index Registry (DIR) with the [employer] ([employer]). RADIATION OPTIMIZATION: All CT scans at this facility use at least one of these dose optimization te chniques: automated exposure control; mA and/or kV adjustment per patient size (includes targeted exa ms where dose is matched to clinical indication); or iterative reconstruction.
== END ==
PROVIDERS: PCP Nurse Practitioner Family; Visit Provider Nurse Practitioner
DX: R91.8 Other nonspecific abnormal finding of lung field (principal)
CPT/HCPCS: 71250

== ENCOUNTER 2022-04-16 17:36 | Outpatient (REF) | payer MEDICAID, SELFPAY ==
[2022-04-16 21:07] LABS: Abs Immature Grans 0.03 10^3/uL (0.0-0.06); Absolute Basophil Count 0.07 10^3/uL (0.0-0.2); Absolute Eosinophil Count 0.08 10^3/uL (0.0-0.7); Absolute Lymphocyte Count 1.79 10^3/uL (1.2-3.4); Absolute Monocyte Count 0.33 10^3/uL (0.1-0.8); Basophils % 1.1; Eosinophils % 1.3; HCT 39.3 % (36.0-46.0); HGB 12.6 g/dL (11.2-15.7); Immature Grans % 0.5; Lymphocytes % 28.9; MCH 29.2 pg (27.0-33.0); MCHC 32.1 % (32.0-36.0); MCV 91 fL (80-95); MPV 10.1 fL (8.0-11.0); Monocytes % 5.3; Neutrophils % 62.9; Platelet Count 338 10^3/uL (130-400); RBC 4.32 10^6/uL (3.93-5.22); RDW-SD 43.4 fL
[2022-04-16 21:16] LABS: ALT 41 U/L (14-59); AST 25 U/L (15-37); Alkaline Phosphatase 89 U/L (46-116); Anion Gap 7.5 mmol/L (3-11); BUN 16 mg/dL (7-18); Bilirubin, Total 0.4 mg/dL (0.2-1.0); CO2 29.5 mmol/L (21.0-32.0); CREATININE 1.1 mg/dL (0.55-1.02); Calcium 9.4 mg/dL (8.5-10.1); Calculated LDL 164 mg/dL (<100); Chloride 101 mmol/L (98-107); Cholesterol 264 mg/dL (<200); Estimated GFR 54.21 (mL/min/1.73m2); Folate 3.5 ng/mL (8.6-20.0); Glucose 110 mg/dL (74-106); HDL Cholesterol 62 mg/dL (40-60); Potassium 4.6 mmol/L (3.5-5.1); Sodium 138 mmol/L (136-145); TSH (W/Ref FT4) 2.51 uIU/mL (0.36-3.74); Total Protein 7.6 g/dL (6.4-8.2); Triglyceride 193 mg/dL (<150)
[2022-04-16 21:43] LABS: Hemoglobin A1C 6.8 % (<5.7)
[2022-04-17 05:11] LABS: Vitamin D 25 Total 9.9 ng/mL (30-100)
== END 2022-04-16 17:37 | disposition home or self-care (01) ==
LOC: NCHCN 17:36
PROVIDERS: PCP Nurse Practitioner; Visit Provider Nurse Practitioner Family
DX: E78.5 Hyperlipidemia, unspecified (principal); E55.9 Vitamin D deficiency, unspecified; D52.9 Folate deficiency anemia, unspecified; R73.03 Prediabetes; R53.83 Other fatigue; G47.33 Obstructive sleep apnea (adult) (pediatric)
CPT/HCPCS: 80053; 80061; 82306; 82746; 83036; 84443; 85025

== ENCOUNTER 2022-05-15 02:19 | Outpatient (CLI) | payer MEDICAID, SELFPAY ==
--- NOTE | 2022-05-15 15:00 | NS.NUTBLAN_ITS ---
Aylin was referred for weight management and diabetes self management education. 5'5 254 lbs BMI: 42 A1C: 6.8% newly dx with DM2 Meds: 0.75 mg Trulicity q week PMH: depression, Vit D & folate deficiency. Diet Recall: mostly prepared foods such as frozen pizza, sandwiches. Drinks 3- 4 Pepsi daily Aylin reports that she was able to lose over 100 lbs in the past by reducing portions. She has regained that weight now. She does not want to change how she eats. Cannot give up Pepsi at this time. Often skips meals. Was not receptive to diet education. Session today primarily focused on how to inject with Trulicity pen. Provided demonstration and written materials. Provided written material on ideal diet for weight loss. Encouraged her to reach out for follow up appt or questions. No follow up planned at this time.
== END 2022-05-15 02:20 | disposition home or self-care (01) ==
LOC: DS 02:20
PROVIDERS: PCP Nurse Practitioner; Visit Provider Dietitian, Registered
DX: E11.9 Type 2 diabetes mellitus without complications (principal); E66.8 Other obesity; Z68.41 Body mass index [BMI] 40.0-44.9, adult; Z71.3 Dietary counseling and surveillance
CPT/HCPCS: 97802

== ENCOUNTER 2022-08-06 16:12 | Outpatient (REF) | payer MEDICAID, SELFPAY ==
[2022-08-06 15:48] LABS: PROTEIN 20.5 mg/dL
[2022-08-06 15:58] LABS: Microalb ug/mg Crea 4.6 ug/mg Cr; Prot/Crea Ur Ratio 0.04
== END 2022-08-06 16:13 | disposition home or self-care (01) ==
LOC: NCHCN 16:12
PROVIDERS: PCP Nurse Practitioner; Visit Provider Nurse Practitioner Family
DX: E11.9 Type 2 diabetes mellitus without complications (principal)
CPT/HCPCS: 82043; 82565; 82570; 84156

== ENCOUNTER 2022-09-20 15:58 | Inpatient (IN) | payer MEDICAID, SELFPAY ==
[2022-09-20] VITALS (28 sets, daily range): BP systolic 112–168; BP diastolic 77–116; PULSE 75–130; RESP 15–30; TEMP 36.6–36.8; O2SAT 94–99
--- NOTE | 2022-09-20 16:00 | RT.EKG_ITS ---
APPROVED REPORT Exam: Resting ECG Reason for Exam: intentional od Patient Location: I HR:100 bpm ECG Measurements Heart Rate 100 AXIS OH 215 P 55 QRSd 90 QRS 36 QT 362 T 53 QTc 466 Conclusion Sinus tachycardia...rate> 99 Prolonged OH interval...OH >205, V-rate 91-120
[2022-09-20] MEDS: Normal Saline 1,000 ML 1000 ML IV ×2 (16:34→19:41)
[2022-09-20 16:36] LABS: Abs Immature Grans 0.01 10^3/uL (0.0-0.06); Absolute Basophil Count 0.08 10^3/uL (0.0-0.2); Absolute Eosinophil Count 0.08 10^3/uL (0.0-0.7); Absolute Lymphocyte Count 2.91 10^3/uL (1.2-3.4); Absolute Monocyte Count 0.76 10^3/uL (0.1-0.8); Absolute Neutrophil Count 3.47 10^3/uL (1.2-6.7); Basophils % 1.1; Eosinophils % 1.1; HCT 38.6 % (36.0-46.0); HGB 12.8 g/dL (11.2-15.7); Immature Grans % 0.1; Lymphocytes % 39.8; MCH 29.6 pg (27.0-33.0); MCHC 33.2 % (32.0-36.0); MCV 89 fL (80-95); MPV 9.5 fL (8.0-11.0); Monocytes % 10.4; Neutrophils % 47.5; Platelet Count 328 10^3/uL (130-400); RBC 4.33 10^6/uL (3.93-5.22); RDW 12.8 % (11.7-14.6); RDW-SD 41.6 fL; WBC 7.31 10^3/uL (4.4-10.8)
[2022-09-20 16:47] LABS: Magnesium 2.1 mg/dL (1.8-2.4)
[2022-09-20 16:55] LABS: ALT 44 U/L (14-59); AST 30 U/L (15-37); Albumin 4.1 g/dL (3.4-5.0); Alkaline Phosphatase 71 U/L (46-116); Anion Gap 11.9 mmol/L (3-11); BUN 14 mg/dL (7-18); Bilirubin, Total 0.4 mg/dL (0.2-1.0); CO2 24.1 mmol/L (21.0-32.0); CREATININE 1.3 mg/dL (0.55-1.02); Calcium 9.9 mg/dL (8.5-10.1); Chloride 100 mmol/L (98-107); Estimated GFR 52.33 (mL/min/1.73m2); Glucose 124 mg/dL (74-106); Potassium 3.5 mmol/L (3.5-5.1); Sodium 136 mmol/L (136-145); Total Protein 8.3 g/dL (6.4-8.2); Troponin I < 50 ng/L (<or=60)
[2022-09-20 16:56] LABS: ETHANOL BLOOD < 3.0 mg/dL (<10)
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
[2022-09-20 17:08] LABS: *AMPHETAMINES SCREEN URINE Positive (Negative); *BARBITURATES SCREEN URINE Negative (Negative); *BENZODIAZEPINES SCREEN URINE Negative (Negative); Cannabinoids THC Negative (Negative); Cocaine Screen,Urine Negative (Negative); METHADONE URINE SCREEN Negative (Negative); OPIATES URINE SCREEN Negative (Negative); Tricyclic Antidepressants Negative (Negative)
[2022-09-20 17:20] LABS: Acetaminophen 33 ug/mL (10-30); Salicylate 18.2 mg/dL (<2.8)
[2022-09-20 17:25] LABS: BE (Venous) -2 mmol/L (-2-3); HCO3 (Venous) 22 mmol/L (23-28); O2 Sat (Venous) 99 %; TCO2 (Venous) 20 mmol/L (24-29); pCO2 (Venous) 31 mmHg (41-51); pH (Venous) 7.47 (7.31-7.41); pO2 (Venous) 113 mmHg
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
[2022-09-20 19:32] LABS: Anion Gap 15.3 mmol/L (3-11); BUN 13 mg/dL (7-18); CO2 20.7 mmol/L (21.0-32.0); CREATININE 1.2 mg/dL (0.55-1.02); Calcium 9.2 mg/dL (8.5-10.1); Chloride 99 mmol/L (98-107); Glucose 178 mg/dL (74-106); Potassium 3.7 mmol/L (3.5-5.1); Sodium 135 mmol/L (136-145)
[2022-09-20 19:36] LABS: Acetaminophen 99 ug/mL (10-30)
[2022-09-20 19:42] LABS: Salicylate 42.5 mg/dL (<2.8)
[2022-09-20 19:49] LABS: COVID-19 PCR Negative (Negative); Influenza A PCR Negative (Negative); Influenza B PCR Negative (Negative); RSV PCR Negative (Negative)
[2022-09-20 19:54] LABS: Source Nasopharynx
[2022-09-20] MEDS: Normal Saline Flush 10 ML SYR IVP (20:20)
[2022-09-20] MEDS: LORazepam 2 MG/ML VIAL 0.5 MG IVP (20:21)
[2022-09-20] MEDS: Pantoprazole 40 MG VIAL IVP (20:21)
[2022-09-20] MEDS: Normal Saline 1,000 ML 150 ML IV (20:40)
[2022-09-20 21:37] LABS: Anion Gap 12.6 mmol/L (3-11); BUN 11 mg/dL (7-18); CO2 22.4 mmol/L (21.0-32.0); CREATININE 1.2 mg/dL (0.55-1.02); Calcium 8.9 mg/dL (8.5-10.1); Chloride 100 mmol/L (98-107); Glucose 133 mg/dL (74-106); Potassium 3.7 mmol/L (3.5-5.1); Sodium 135 mmol/L (136-145)
[2022-09-20 21:43] LABS: Salicylate 39.4 mg/dL (<2.8)
[2022-09-20 23:25] LABS: BE (Venous) -4 mmol/L (-2-3); HCO3 (Venous) 19 mmol/L (23-28); O2 Sat (Venous) 99 %; TCO2 (Venous) 17 mmol/L (24-29); pCO2 (Venous) 24 mmHg (41-51); pH (Venous) 7.51 (7.31-7.41); pO2 (Venous) 137 mmHg
[2022-09-20 23:48] LABS: Anion Gap 12.7 mmol/L (3-11); BUN 11 mg/dL (7-18); CO2 20.3 mmol/L (21.0-32.0); Calcium 8.7 mg/dL (8.5-10.1); Chloride 100 mmol/L (98-107); Estimated GFR 71.69 (mL/min/1.73m2); Glucose 164 mg/dL (74-106); Potassium 3.9 mmol/L (3.5-5.1); Sodium 133 mmol/L (136-145)
[2022-09-20 23:49] LABS: Salicylate 34.7 mg/dL (<2.8)
[2022-09-21] VITALS (16 sets, daily range): BP systolic 130–150; BP diastolic 75–99; PULSE 96–119; RESP 13–27; TEMP 36.8–37; O2SAT 97–98
[2022-09-21 01:10] LABS: BE (Venous) -2 mmol/L (-2-3); HCO3 (Venous) 20 mmol/L (23-28); pCO2 (Venous) 20 mmHg (41-51); pO2 (Venous) 215 mmHg
[2022-09-21 01:11] LABS: O2 Sat (Venous) > 99 %
--- NOTE | 2022-09-21 01:13 | NUR.NOTE ---
Addendum entered by Kimmy Mcgee RN 09/21/22 01:13: Patient assisted OOB to bedside commode. Standby assist only. Clear, Pale Yellow Urine. Urine dipstick as documented. Pt moaning with pain in LUQ, unable to assign a number or describe type of pain. Original Note: Nursing Note:
[2022-09-21 01:26] LABS: Anion Gap 12.6 mmol/L (3-11); BUN 10 mg/dL (7-18); CO2 20.4 mmol/L (21.0-32.0); CREATININE 1.1 mg/dL (0.55-1.02); Calcium 8.6 mg/dL (8.5-10.1); Chloride 101 mmol/L (98-107); Estimated GFR 63.94 (mL/min/1.73m2); Glucose 161 mg/dL (74-106); Potassium 3.7 mmol/L (3.5-5.1); Sodium 134 mmol/L (136-145)
[2022-09-21 01:28] LABS: Salicylate 30.6 mg/dL (<2.8)
--- NOTE | 2022-09-21 02:41 | NUR.NOTE ---
Nursing Note: Decreased IVF to 100ml/hr secondary to Urine PH of 8.5., pending next lab results will notify Dr Fallon.
--- NOTE | 2022-09-21 03:16 | NUR.NOTE ---
Nursing Note: Spoke with Dr Fallon regarding Urine pH of 8.5, from earlier level of 7. Results of Q2H VBG pending. Continue D5 w/40MeQ of KCL and one amp of BiCarb @ 250ml/hour.
[2022-09-21 03:28] LABS: BE (Venous) 1 mmol/L (-2-3); HCO3 (Venous) 24 mmol/L (23-28); O2 Sat (Venous) 99 %; TCO2 (Venous) 21 mmol/L (24-29); pCO2 (Venous) 30 mmHg (41-51); pH (Venous) 7.51 (7.31-7.41); pO2 (Venous) 127 mmHg
[2022-09-21 03:46] LABS: Salicylate 24.9 mg/dL (<2.8)
[2022-09-21] MEDS: Sodium Bicarbonate 50 MEQ/50 ML VIAL ×2 (04:09)
[2022-09-21] MEDS: Sodium Bicarbonate 50 MEQ/50 ML SYR (04:09)
[2022-09-21 04:28] LABS: BUN 9 mg/dL (7-18); CREATININE 0.9 mg/dL (0.55-1.02); Chloride 102 mmol/L (98-107); Estimated GFR 81.35 (mL/min/1.73m2); Glucose 125 mg/dL (74-106); Potassium 3.8 mmol/L (3.5-5.1); Sodium 137 mmol/L (136-145)
--- NOTE | 2022-09-21 04:55 | NUR.NOTE ---
Nursing Note: F/U call from Vandana @ [facility]. Updated that patient has intermittent symptoms of nausea with activity/no vomiting. Intermittent abdominal pain in LUQ of abdomen with activity resolving at rest. No further medications for pain/anxiety have been administered. Per Vandana continue with BiCarb and Potassium until two ASA levels less than 30.
--- NOTE | 2022-09-21 05:22 | NUR.NOTE ---
Nursing Note: AM labs drawn by this RN with Serial labs due to manager of hospital inability to access a vein. Patient denies any abdominal discomfort at this time with activity.
[2022-09-21 05:29] LABS: BE (Venous) 1 mmol/L (-2-3); HCO3 (Venous) 24 mmol/L (23-28); O2 Sat (Venous) 99 %; TCO2 (Venous) 22 mmol/L (24-29); pCO2 (Venous) 32 mmHg (41-51); pH (Venous) 7.49 (7.31-7.41); pO2 (Venous) 110 mmHg
[2022-09-21 05:30] LABS: HCT 37.1 % (36.0-46.0); HGB 12.4 g/dL (11.2-15.7); MCH 29.6 pg (27.0-33.0); MCHC 33.4 % (32.0-36.0); MCV 89 fL (80-95); MPV 9.5 fL (8.0-11.0); Platelet Count 328 10^3/uL (130-400); RBC 4.19 10^6/uL (3.93-5.22); RDW 12.8 % (11.7-14.6); RDW-SD 41.8 fL; WBC 9.06 10^3/uL (4.4-10.8)
[2022-09-21 05:41] LABS: Salicylate 20.4 mg/dL (<2.8)
[2022-09-21 05:47] LABS: ALT 41 U/L (14-59); AST 28 U/L (15-37); Albumin 3.8 g/dL (3.4-5.0); Alkaline Phosphatase 67 U/L (46-116); Anion Gap 11.6 mmol/L (3-11); BUN 8 mg/dL (7-18); Bilirubin, Total 0.2 mg/dL (0.2-1.0); CO2 25.4 mmol/L (21.0-32.0); Calcium 8.6 mg/dL (8.5-10.1); Chloride 102 mmol/L (98-107); Estimated GFR 71.69 (mL/min/1.73m2); Glucose 100 mg/dL (74-106); Potassium 3.7 mmol/L (3.5-5.1); Sodium 139 mmol/L (136-145); Total Protein 7.7 g/dL (6.4-8.2)
[2022-09-21 07:00] LABS: BE (Venous) 2 mmol/L (-2-3); HCO3 (Venous) 25 mmol/L (23-28); pCO2 (Venous) 32 mmHg (41-51); pH (Venous) 7.51 (7.31-7.41); pO2 (Venous) 180 mmHg
[2022-09-21 07:03] LABS: O2 Sat (Venous) > 99 %
[2022-09-21 07:15] LABS: Anion Gap 10.9 mmol/L (3-11); BUN 7 mg/dL (7-18); CO2 26.1 mmol/L (21.0-32.0); Calcium 8.4 mg/dL (8.5-10.1); Chloride 102 mmol/L (98-107); Estimated GFR 71.69 (mL/min/1.73m2); Glucose 117 mg/dL (74-106); Potassium 3.3 mmol/L (3.5-5.1); Sodium 139 mmol/L (136-145)
[2022-09-21 07:27] LABS: Salicylate 16.5 mg/dL (<2.8)
--- NOTE | 2022-09-21 08:09 | NUR.NOTE ---
0730: Spoke to nursing lead refinery supervisor about the patient wanting to leave AMA, on-call care management paged through access and aware. MD and house player also aware.
--- NOTE | 2022-09-21 08:12 | PDOC.CMPRO ---
- If Service Date Differs Date of service: 09/21/22 Time of Service: 08:12 Care Management Progress Note CM notified by SAUL Hess in ICU that Aylin left AMA.
--- NOTE | 2022-09-21 08:17 | SUR.INTRAOP ---
0750: Patient leaving AMA. AMA form signed.Patient stated that she has no intention of hurting herself or killing herself with both Jimena Moore RN and Suzanna Salazar RN as witnesses.
--- NOTE | 2022-09-21 08:19 | W.PM.DS.N ---
Date of service: 09/21/22 Time of Service: 08:19 DS: Diagnosis Discharge Diagnosis (1) Aspirin overdose: Status: Acute Asessment and Plan: Patient took 20 tablets of Excedrin containing aspirin, acetaminophen, caffeine and an intentional overdose of the impulsive behavior related to an argument with her daughter. Symptoms include nausea epigastric abdominal discomfort and tinnitus. Patient said admitting salicylate level was 18.2 mg/dL which peaked at 42.5 mg/dL 3 hours after admission and progressively decline down to the level of 16.5 mg/dL after aggressive IV fluid hydration and alkalinization with a bicarbonate drip. Patient refused to stay in hospital any longer and left the hospital the next morning on 09/21/2022 AGAINST MEDICAL ADVICE. Initial acetaminophen level was 33 mcg/mL and 3 hours after admission had risen to 99 mcg /dL which was under the Rumack-Liu curve for toxicity therefore patient was not treated with Mucomyst. Patient denied suicidal ideation and signed paperwork indicating that she understood her rights and risks in leaving AGAINST MEDICAL ADVICE prior to completion of her treatment of her aspirin toxicity. (2) Intentional overdose: Status: Acute (3) Depression: Status: Chronic (4) GERD (gastroesophageal reflux disease): Status: Chronic (5) Asthma: Status: Chronic Discharge Plan Disposition Patient Disposition: Against Medical Advise Condition: Improving Discharge Details Reason For Visit: Intentional Overdose Excedrin Admit Date/Time: 09/20/22 18:30 Admit Provider: Rai Fallon Attending Provider: Rai Fallon Primary Care Provider: Marissa Robles Hospital Course Hospital Course: 41-year-old female took an intentional overdose of 20 tablets of Excedrin after a fight with her daughter. Excedrin containing aspirin acetaminophen and caffeine. Her presenting symptoms included nausea and vague abdominal discomfort along with worsening tinnitus. Initial aspirin level was 18.2 mg/dL but within the first 3 hours of admission peaked at 42.5 mg/dL. Patient was started on IV fluid hydration along with sodium bicarbonate infusion to alkalinize her blood and urine per recommendations from poison control. Aspirin level was monitored every 2 hours along with venous blood gases. Overnight her aspirin level came down to 16.5 mg/dL. Serial VBG's demonstrated alkalinization of her blood with pH ranging between 7.51 and 7.60. Poison control recommended continuation of bicarbonate drip and IV fluids until her salicylate level was less than 9. Unfortunately the next morning the patient refused to remain in the hospital any longer and pulled out her IVs and left the hospital AGAINST MEDICAL ADVICE. Patient had been cautioned by the nurses that while she has had improvement in her salicylate levels she still needed continued treatment. Patient was denying any suicidal intent and therefore she was not deemed to be a candidate for psychiatric emergency evaluation for involuntary hospitalization. Patient signed paperwork indicating she understood her rights and that she was leaving against medical advice with increased risk of worsening symptoms without completion of her treatment. Home Meds and New Rx's Prescriptions: No Action fexofenadine-pseudoephedrine [Muriel-D 12 Hour] 60-120 mg Tablet Extended Release 12 Hr 1 tab PO Q12H PRN bupropion HCl [Wellbutrin XL] 300 mg Tablet Extended Release 24 Hr 300 mg PO QHS omeprazole 40 mg capsule,delayed release(DR/EC) 40 mg PO DAILY albuterol sulfate [ProAir HFA] 90 mcg/actuation HFA aerosol inhaler 2 puff INHALATION PRN PRN Label Comments: INHALE ONE TO TWO PUFFS BY MOUTH EVERY 4 TO 6 HOURS NEEDED prednisone 20 mg tablet See Rx Instructions .ROUTE .COMPLEX Qty: 12 0RF Rx Instructions: Take 3 tabs daily for 2 days, then 2 tabs daily for 2 days, then 1 tab daily for 2 days diazepam [Valium] 5 mg tablet 5 mg PO TID PRN (Reason: muscle spasm) Qty: 7 0RF methocarbamol 500 mg tablet 500 mg PO Q6H PRN (Reason: muscle spasm) Qty: 14 0RF naproxen [Naprosyn] 500 mg tablet 500 mg PO BID PRN (Reason: pain) Qty: 14 0RF Discharge Instructions Activity:: Activity as Tolerated Diet:: Normal Diet Discharge Orders Discharge Orders: Discharge Order (Routine); Ordered 09/21/22 Ordered By: Mynor Villagomez Discharge Data Discharge Date/Time-TO BE ENTERED AT DEPARTURE: 09/21/22 07:55 Discharge Comment: Patient left AMA DS: Summary Time Spent with Patient providing and/or coordinating discharge services: Less than 30 minutes Status at Discharge Functional status at discharge: independent ambulation Overall status at discharge: patient is progressing back to baseline Mental Status: mental status grossly normal Speech and Movement: speech and movement normal Mood: congruent mood Affect: normal affect Exam Narrative Exam Narrative: No exam; patient left AMA prior to my assumption of her care Psych Mental Status: mental status grossly normal Speech and Movement: speech and movement normal Mood: congruent mood Affect: normal affect DS: Data Vitals/I&O Vitals and I&O: Vital Signs Temperature 36.8 C 09/21/22 05:45 Temperature Source Temporal Artery Scan 09/21/22 05:45 Pulse 105 H 09/21/22 05:46 Pulse 116 H 09/21/22 06:00 Respiratory Rate 27 H 09/21/22 06:00 Respiratory Effort Non-Labored 09/21/22 04:01 Respiratory Depth Normal 09/21/22 04:01 Respiratory Pattern Normal 09/21/22 04:01 Blood Pressure 150/99 H 09/21/22 05:46 Blood Pressure Mean 113 09/21/22 05:46 Blood Pressure Position Supine 09/21/22 04:01 Pulse Oximetry 97 09/21/22 05:45 Oxygen Delivery Method Room Air 09/21/22 05:45 Oxygen Flow Rate 0 09/21/22 05:45 Pain Level 0 09/21/22 05:45 Comment 09/21/22 05:45 Intake & Output 09/20/22 09/20/22 09/21/22 11:59 23:59 11:59 Intake Total 2305 / 2305 1087.500 / 1087.500 Output Total 1410 / 1410 1675 / 1675 Balance 895 / 895 -587.500 / -587.500 Weight 107.8 kg Intake: IV 2305 / 2305 1027.500 / 1027.500 Oral 60 / 60 Output: Urine 1410 / 1410 1675 / 1675 Other: Urine Color Yellow Yellow Urine Appearance Clear Clear Urine Odor Sweet Sweet Comment Q2H Urine Dipsticks Ordered pH=8.5 Emesis Description Retching Bile Voiding Methods Bedside Commode Data Completed and Pending Labs on day of discharge: Labs from last 24 hours 09/21/22 09/21/22 09/21/22 23:00 23:00 21:00 WBC RBC Hgb Hct MCV MCH MCHC RDW Plt Count MPV Immature Gran % Neutrophils % Lymphocytes % Monocytes % Eosinophils % Basophils % Nucleated RBC % Absolute Neutrophils Absolute Lymphocytes Absolute Monocytes Absolute Eosinophils Absolute Basophils VBG pH Pending VBG pCO2 Pending VBG pO2 Pending VBG HCO3 Pending VBG Total CO2 Pending VBG O2 Saturation Pending VBG Base Excess Pending Sodium Pending Pending Potassium Pending Pending Chloride Pending Pending Carbon Dioxide Pending Pending Anion Gap Pending Pending BUN Pending Pending Creatinine Pending Pending Est GFR (CKD-EPI 2020) Pending Pending Glucose Pending Pending Calcium Pending Pending Magnesium Total Bilirubin AST ALT Alkaline Phosphatase Troponin I Total Protein Albumin Salicylates Urine Opiates Screen Urine Methadone Screen Acetaminophen Ur Barbiturates Screen Ur Tricyclics Screen Ur Amphetamines Screen U Benzodiazepines Scrn Urine Cocaine Screen Ur THC Screen Ethyl Alcohol COVID-19 Source SARS-CoV-2 (PCR) Influenza Type A (PCR) Influenza Type B (PCR) RSV (PCR) 09/21/22 09/21/22 09/21/22 21:00 21:00 19:00 WBC RBC Hgb Hct MCV MCH MCHC RDW Plt Count MPV Immature Gran % Neutrophils % Lymphocytes % Monocytes % Eosinophils % Basophils % Nucleated RBC % Absolute Neutrophils Absolute Lymphocytes Absolute Monocytes Absolute Eosinophils Absolute Basophils VBG pH Pending VBG pCO2 Pending VBG pO2 Pending VBG HCO3 Pending VBG Total CO2 Pending VBG O2 Saturation Pending VBG Base Excess Pending Sodium Pending Potassium Pending Chloride Pending Carbon Dioxide Pending Anion Gap Pending BUN Pending Creatinine Pending Est GFR (CKD-EPI 2020) Pending Glucose Pending Calcium Pending Magnesium Total Bilirubin AST ALT Alkaline Phosphatase Troponin I Total Protein Albumin Salicylates Pending Urine Opiates Screen Urine Methadone Screen Acetaminophen Ur Barbiturates Screen Ur Tricyclics Screen Ur Amphetamines Screen U Benzodiazepines Scrn Urine Cocaine Screen Ur THC Screen Ethyl Alcohol COVID-19 Source SARS-CoV-2 (PCR) Influenza Type A (PCR) Influenza Type B (PCR) RSV (PCR) 09/21/22 09/21/22 09/21/22 19:00 19:00 17:00 WBC RBC Hgb Hct MCV MCH MCHC RDW Plt Count MPV Immature Gran % Neutrophils % Lymphocytes % Monocytes % Eosinophils % Basophils % Nucleated RBC % Absolute Neutrophils Absolute Lymphocytes Absolute Monocytes Absolute Eosinophils Absolute Basophils VBG pH Pending VBG pCO2 Pending VBG pO2 Pending VBG HCO3 Pending VBG Total CO2 Pending VBG O2 Saturation Pending VBG Base Excess Pending Sodium Pending Potassium Pending Chloride Pending Carbon Dioxide Pending Anion Gap Pending BUN Pending Creatinine Pending Est GFR (CKD-EPI 2020) Pending Glucose Pending Calcium Pending Magnesium Total Bilirubin AST ALT Alkaline Phosphatase Troponin I Total Protein Albumin Salicylates Pending Urine Opiates Screen Urine Methadone Screen Acetaminophen Ur Barbiturates Screen Ur Tricyclics Screen Ur Amphetamines Screen U Benzodiazepines Scrn Urine Cocaine Screen Ur THC Screen Ethyl Alcohol COVID-19 Source SARS-CoV-2 (PCR) Influenza Type A (PCR) Influenza Type B (PCR) RSV (PCR) 09/21/22 09/21/22 09/21/22 17:00 17:00 15:00 WBC RBC Hgb Hct MCV MCH MCHC RDW Plt Count MPV Immature Gran % Neutrophils % Lymphocytes % Monocytes % Eosinophils % Basophils % Nucleated RBC % Absolute Neutrophils Absolute Lymphocytes Absolute Monocytes Absolute Eosinophils Absolute Basophils VBG pH Pending VBG pCO2 Pending VBG pO2 Pending VBG HCO3 Pending VBG Total CO2 Pending VBG O2 Saturation Pending VBG Base Excess Pending Sodium Pending Potassium Pending Chloride Pending Carbon Dioxide Pending Anion Gap Pending BUN Pending Creatinine Pending Est GFR (CKD-EPI 2020) Pending Glucose Pending Calcium Pending Magnesium Total Bilirubin AST ALT Alkaline Phosphatase Troponin I Total Protein Albumin Salicylates Pending Urine Opiates Screen Urine Methadone Screen Acetaminophen Ur Barbiturates Screen Ur Tricyclics Screen Ur Amphetamines Screen U Benzodiazepines Scrn Urine Cocaine Screen Ur THC Screen Ethyl Alcohol COVID-19 Source SARS-CoV-2 (PCR) Influenza Type A (PCR) Influenza Type B (PCR) RSV (PCR) 09/21/22 09/21/22 09/21/22 15:00 15:00 13:00 WBC RBC Hgb Hct MCV MCH MCHC RDW Plt Count MPV Immature Gran % Neutrophils % Lymphocytes % Monocytes % Eosinophils % Basophils % Nucleated RBC % Absolute Neutrophils Absolute Lymphocytes Absolute Monocytes Absolute Eosinophils Absolute Basophils VBG pH Pending VBG pCO2 Pending VBG pO2 Pending VBG HCO3 Pending VBG Total CO2 Pending VBG O2 Saturation Pending VBG Base Excess Pending Sodium Pending Potassium Pending Chloride Pending Carbon Dioxide Pending Anion Gap Pending BUN Pending Creatinine Pending Est GFR (CKD-EPI 2020) Pending Glucose Pending Calcium Pending Magnesium Total Bilirubin AST ALT Alkaline Phosphatase Troponin I Total Protein Albumin Salicylates Pending Urine Opiates Screen Urine Methadone Screen Acetaminophen Ur Barbiturates Screen Ur Tricyclics Screen Ur Amphetamines Screen U Benzodiazepines Scrn Urine Cocaine Screen Ur THC Screen Ethyl Alcohol COVID-19 Source SARS-CoV-2 (PCR) Influenza Type A (PCR) Influenza Type B (PCR) RSV (PCR) 09/21/22 09/21/22 09/21/22 13:00 13:00 12:00 WBC RBC Hgb Hct MCV MCH MCHC RDW Plt Count MPV Immature Gran % Neutrophils % Lymphocytes % Monocytes % Eosinophils % Basophils % Nucleated RBC % Absolute Neutrophils Absolute Lymphocytes Absolute Monocytes Absolute Eosinophils Absolute Basophils VBG pH Pending VBG pCO2 Pending VBG pO2 Pending VBG HCO3 Pending VBG Total CO2 Pending VBG O2 Saturation Pending VBG Base Excess Pending Sodium Pending Potassium Pending Chloride Pending Carbon Dioxide Pending Anion Gap Pending BUN Pending Creatinine Pending Est GFR (CKD-EPI 2020) Pending Glucose Pending Calcium Pending Magnesium Total Bilirubin AST ALT Alkaline Phosphatase Troponin I Total Protein Albumin Salicylates Pending Urine Opiates Screen Urine Methadone Screen Acetaminophen Ur Barbiturates Screen Ur Tricyclics Screen Ur Amphetamines Screen U Benzodiazepines Scrn Urine Cocaine Screen Ur THC Screen Ethyl Alcohol COVID-19 Source SARS-CoV-2 (PCR) Influenza Type A (PCR) Influenza Type B (PCR) RSV (PCR) 09/21/22 09/21/22 09/21/22 11:00 11:00 11:00 WBC RBC Hgb Hct MCV MCH MCHC RDW Plt Count MPV Immature Gran % Neutrophils % Lymphocytes % Monocytes % Eosinophils % Basophils % Nucleated RBC % Absolute Neutrophils Absolute Lymphocytes Absolute Monocytes Absolute Eosinophils Absolute Basophils VBG pH Pending VBG pCO2 Pending VBG pO2 Pending VBG HCO3 Pending VBG Total CO2 Pending VBG O2 Saturation Pending VBG Base Excess Pending Sodium Pending Potassium Pending Chloride Pending Carbon Dioxide Pending Anion Gap Pending BUN Pending Creatinine Pending Est GFR (CKD-EPI 2020) Pending Glucose Pending Calcium Pending Magnesium Total Bilirubin AST ALT Alkaline Phosphatase Troponin I Total Protein Albumin Salicylates Pending Urine Opiates Screen Urine Methadone Screen Acetaminophen Ur Barbiturates Screen Ur Tricyclics Screen Ur Amphetamines Screen U Benzodiazepines Scrn Urine Cocaine Screen Ur THC Screen Ethyl Alcohol COVID-19 Source SARS-CoV-2 (PCR) Influenza Type A (PCR) Influenza Type B (PCR) RSV (PCR) 09/21/22 09/21/22 09/21/22 09:00 09:00 09:00 WBC RBC Hgb Hct MCV MCH MCHC RDW Plt Count MPV Immature Gran % Neutrophils % Lymphocytes % Monocytes % Eosinophils % Basophils % Nucleated RBC % Absolute Neutrophils Absolute Lymphocytes Absolute Monocytes Absolute Eosinophils Absolute Basophils VBG pH Pending VBG pCO2 Pending VBG pO2 Pending VBG HCO3 Pending VBG Total CO2 Pending VBG O2 Saturation Pending VBG Base Excess Pending Sodium Pending Potassium Pending Chloride Pending Carbon Dioxide Pending Anion Gap Pending BUN Pending Creatinine Pending Est GFR (CKD-EPI 2020) Pending Glucose Pending Calcium Pending Magnesium Total Bilirubin AST ALT Alkaline Phosphatase Troponin I Total Protein Albumin Salicylates Pending Urine Opiates Screen Urine Methadone Screen Acetaminophen Ur Barbiturates Screen Ur Tricyclics Screen Ur Amphetamines Screen U Benzodiazepines Scrn Urine Cocaine Screen Ur THC Screen Ethyl Alcohol COVID-19 Source SARS-CoV-2 (PCR) Influenza Type A (PCR) Influenza Type B (PCR) RSV (PCR) 09/21/22 09/21/22 09/21/22 07:00 06:52 06:52 WBC RBC Hgb Hct MCV MCH MCHC RDW Plt Count MPV Immature Gran % Neutrophils % Lymphocytes % Monocytes % Eosinophils % Basophils % Nucleated RBC % Absolute Neutrophils Absolute Lymphocytes Absolute Monocytes Absolute Eosinophils Absolute Basophils VBG pH VBG pCO2 VBG pO2 VBG HCO3 VBG Total CO2 VBG O2 Saturation VBG Base Excess Sodium 139 Potassium 3.3 L Chloride 102 Carbon Dioxide 26.1 Anion Gap 10.9 BUN 7 Creatinine 1.0 Est GFR (CKD-EPI 2020) 71.69 Glucose 117 H Calcium 8.4 L Magnesium Total Bilirubin AST ALT Alkaline Phosphatase Troponin I Total Protein Albumin Salicylates Pending 16.5 Urine Opiates Screen Urine Methadone Screen Acetaminophen Ur Barbiturates Screen Ur Tricyclics Screen Ur Amphetamines Screen U Benzodiazepines Scrn Urine Cocaine Screen Ur THC Screen Ethyl Alcohol COVID-19 Source SARS-CoV-2 (PCR) Influenza Type A (PCR) Influenza Type B (PCR) RSV (PCR) 09/21/22 09/21/22 09/21/22 06:52 05:13 05:13 WBC RBC Hgb Hct MCV MCH MCHC RDW Plt Count MPV Immature Gran % Neutrophils % Lymphocytes % Monocytes % Eosinophils % Basophils % Nucleated RBC % Absolute Neutrophils Absolute Lymphocytes Absolute Monocytes Absolute Eosinophils Absolute Basophils VBG pH 7.51 H 7.49 H VBG pCO2 32 L 32 L VBG pO2 180 110 VBG HCO3 25 24 VBG Total CO2 22 L VBG O2 Saturation > 99 99 VBG Base Excess 2 1 Sodium Potassium Chloride Carbon Dioxide Anion Gap BUN Creatinine Est GFR (CKD-EPI 2020) Glucose Calcium Magnesium Total Bilirubin AST ALT Alkaline Phosphatase Troponin I Total Protein Albumin Salicylates 20.4 Urine Opiates Screen Urine Methadone Screen Acetaminophen Ur Barbiturates Screen Ur Tricyclics Screen Ur Amphetamines Screen U Benzodiazepines Scrn Urine Cocaine Screen Ur THC Screen Ethyl Alcohol COVID-19 Source SARS-CoV-2 (PCR) Influenza Type A (PCR) Influenza Type B (PCR) RSV (PCR) 09/21/22 09/21/22 09/21/22 05:13 05:13 03:20 WBC 9.06 RBC 4.19 Hgb 12.4 Hct 37.1 MCV 89 MCH 29.6 MCHC 33.4 RDW 12.8 Plt Count 328 MPV 9.5 Immature Gran % Neutrophils % Lymphocytes % Monocytes % Eosinophils % Basophils % Nucleated RBC % Absolute Neutrophils Absolute Lymphocytes Absolute Monocytes Absolute Eosinophils Absolute Basophils VBG pH VBG pCO2 VBG pO2 VBG HCO3 VBG Total CO2 VBG O2 Saturation VBG Base Excess Sodium 139 Potassium 3.7 Chloride 102 Carbon Dioxide 25.4 Anion Gap 11.6 H BUN 8 Creatinine 1.0 Est GFR (CKD-EPI 2020) 71.69 Glucose 100 Calcium 8.6 Magnesium 2.0 Total Bilirubin 0.2 AST 28 ALT 41 Alkaline Phosphatase 67 Troponin I Total Protein 7.7 Albumin 3.8 Salicylates 24.9 Urine Opiates Screen Urine Methadone Screen Acetaminophen Ur Barbiturates Screen Ur Tricyclics Screen Ur Amphetamines Screen U Benzodiazepines Scrn Urine Cocaine Screen Ur THC Screen Ethyl Alcohol COVID-19 Source SARS-CoV-2 (PCR) Influenza Type A (PCR) Influenza Type B (PCR) RSV (PCR) 09/21/22 09/21/22 09/21/22 03:20 03:20 01:02 WBC RBC Hgb Hct MCV MCH MCHC RDW Plt Count MPV Immature Gran % Neutrophils % Lymphocytes % Monocytes % Eosinophils % Basophils % Nucleated RBC % Absolute Neutrophils Absolute Lymphocytes Absolute Monocytes Absolute Eosinophils Absolute Basophils VBG pH 7.51 H VBG pCO2 30 L VBG pO2 127 VBG HCO3 24 VBG Total CO2 21 L VBG O2 Saturation 99 VBG Base Excess 1 Sodium 137 Potassium 3.8 Chloride 102 Carbon Dioxide 22.0 Anion Gap 13.0 H BUN 9 Creatinine 0.9 Est GFR (CKD-EPI 2020) 81.35 Glucose 125 H Calcium 9.0 Magnesium Total Bilirubin AST ALT Alkaline Phosphatase Troponin I Total Protein Albumin Salicylates 30.6 H* Urine Opiates Screen Urine Methadone Screen Acetaminophen Ur Barbiturates Screen Ur Tricyclics Screen Ur Amphetamines Screen U Benzodiazepines Scrn Urine Cocaine Screen Ur THC Screen Ethyl Alcohol COVID-19 Source SARS-CoV-2 (PCR) Influenza Type A (PCR) Influenza Type B (PCR) RSV (PCR) 09/21/22 09/21/22 09/20/22 01:02 01:02 23:20 WBC RBC Hgb Hct MCV MCH MCHC RDW Plt Count MPV Immature Gran % Neutrophils % Lymphocytes % Monocytes % Eosinophils % Basophils % Nucleated RBC % Absolute Neutrophils Absolute Lymphocytes Absolute Monocytes Absolute Eosinophils Absolute Basophils VBG pH 7.60 H VBG pCO2 20 L VBG pO2 215 VBG HCO3 20 L VBG Total CO2 Pending VBG O2 Saturation > 99 VBG Base Excess -2 Sodium 134 L Potassium 3.7 Chloride 101 Carbon Dioxide 20.4 L Anion Gap 12.6 H BUN 10 Creatinine 1.1 H Est GFR (CKD-EPI 2020) 63.94 Glucose 161 H Calcium 8.6 Magnesium Total Bilirubin AST ALT Alkaline Phosphatase Troponin I Total Protein Albumin Salicylates 34.7 H* Urine Opiates Screen Urine Methadone Screen Acetaminophen Ur Barbiturates Screen Ur Tricyclics Screen Ur Amphetamines Screen U Benzodiazepines Scrn Urine Cocaine Screen Ur THC Screen Ethyl Alcohol COVID-19 Source SARS-CoV-2 (PCR) Influenza Type A (PCR) Influenza Type B (PCR) RSV (PCR) 09/20/22 09/20/22 09/20/22 23:20 23:20 22:00 WBC RBC Hgb Hct MCV MCH MCHC RDW Plt Count MPV Immature Gran % Neutrophils % Lymphocytes % Monocytes % Eosinophils % Basophils % Nucleated RBC % Absolute Neutrophils Absolute Lymphocytes Absolute Monocytes Absolute Eosinophils Absolute Basophils VBG pH 7.51 H VBG pCO2 24 L VBG pO2 137 VBG HCO3 19 L VBG Total CO2 17 L VBG O2 Saturation 99 VBG Base Excess -4 L Sodium 133 L Potassium 3.9 Chloride 100 Carbon Dioxide 20.3 L Anion Gap 12.7 H BUN 11 Creatinine 1.0 Est GFR (CKD-EPI 2020) 71.69 Glucose 164 H Calcium 8.7 Magnesium Total Bilirubin AST ALT Alkaline Phosphatase Troponin I Total Protein Albumin Salicylates Cancelled Urine Opiates Screen Urine Methadone Screen Acetaminophen Ur Barbiturates Screen Ur Tricyclics Screen Ur Amphetamines Screen U Benzodiazepines Scrn Urine Cocaine Screen Ur THC Screen Ethyl Alcohol COVID-19 Source SARS-CoV-2 (PCR) Influenza Type A (PCR) Influenza Type B (PCR) RSV (PCR) 09/20/22 09/20/22 09/20/22 21:18 21:18 20:35 WBC RBC Hgb Hct MCV MCH MCHC RDW Plt Count MPV Immature Gran % Neutrophils % Lymphocytes % Monocytes % Eosinophils % Basophils % Nucleated RBC % Absolute Neutrophils Absolute Lymphocytes Absolute Monocytes Absolute Eosinophils Absolute Basophils VBG pH VBG pCO2 VBG pO2 VBG HCO3 VBG Total CO2 VBG O2 Saturation VBG Base Excess Sodium 135 L Cancelled Potassium 3.7 Cancelled Chloride 100 Cancelled Carbon Dioxide 22.4 Cancelled Anion Gap 12.6 H Cancelled BUN 11 Cancelled Creatinine 1.2 H Cancelled Est GFR (CKD-EPI 2020) 57.60 Cancelled Glucose 133 H Cancelled Calcium 8.9 Cancelled Magnesium Total Bilirubin AST ALT Alkaline Phosphatase Troponin I Total Protein Albumin Salicylates 39.4 H* Urine Opiates Screen Urine Methadone Screen Acetaminophen Ur Barbiturates Screen Ur Tricyclics Screen Ur Amphetamines Screen U Benzodiazepines Scrn Urine Cocaine Screen Ur THC Screen Ethyl Alcohol COVID-19 Source SARS-CoV-2 (PCR) Influenza Type A (PCR) Influenza Type B (PCR) RSV (PCR) 09/20/22 09/20/22 09/20/22 19:08 19:05 19:05 WBC RBC Hgb Hct MCV MCH MCHC RDW Plt Count MPV Immature Gran % Neutrophils % Lymphocytes % Monocytes % Eosinophils % Basophils % Nucleated RBC % Absolute Neutrophils Absolute Lymphocytes Absolute Monocytes Absolute Eosinophils Absolute Basophils VBG pH VBG pCO2 VBG pO2 VBG HCO3 VBG Total CO2 VBG O2 Saturation VBG Base Excess Sodium 135 L Potassium 3.7 Chloride 99 Carbon Dioxide 20.7 L Anion Gap 15.3 H BUN 13 Creatinine 1.2 H Est GFR (CKD-EPI 2020) 57.60 Glucose 178 H Calcium 9.2 Magnesium Total Bilirubin AST ALT Alkaline Phosphatase Troponin I Total Protein Albumin Salicylates 42.5 H* Urine Opiates Screen Urine Methadone Screen Acetaminophen 99 H Ur Barbiturates Screen Ur Tricyclics Screen Ur Amphetamines Screen U Benzodiazepines Scrn Urine Cocaine Screen Ur THC Screen Ethyl Alcohol COVID-19 Source Nasopharynx SARS-CoV-2 (PCR) Negative Influenza Type A (PCR) Negative Influenza Type B (PCR) Negative RSV (PCR) Negative 09/20/22 09/20/22 09/20/22 17:16 16:42 16:36 WBC RBC Hgb Hct MCV MCH MCHC RDW Plt Count MPV Immature Gran % Neutrophils % Lymphocytes % Monocytes % Eosinophils % Basophils % Nucleated RBC % Absolute Neutrophils Absolute Lymphocytes Absolute Monocytes Absolute Eosinophils Absolute Basophils VBG pH 7.47 H VBG pCO2 31 L VBG pO2 113 VBG HCO3 22 L VBG Total CO2 20 L VBG O2 Saturation 99 VBG Base Excess -2 Sodium Potassium Chloride Carbon Dioxide Anion Gap BUN Creatinine Est GFR (CKD-EPI 2020) Glucose Calcium Magnesium Total Bilirubin AST ALT Alkaline Phosphatase Troponin I Total Protein Albumin Salicylates 18.2 Urine Opiates Screen Negative Urine Methadone Screen Negative Acetaminophen 33 H Ur Barbiturates Screen Negative Ur Tricyclics Screen Negative Ur Amphetamines Screen Positive A U Benzodiazepines Scrn Negative Urine Cocaine Screen Negative Ur THC Screen Negative Ethyl Alcohol COVID-19 Source SARS-CoV-2 (PCR) Influenza Type A (PCR) Influenza Type B (PCR) RSV (PCR) 09/20/22 09/20/22 09/20/22 16:28 16:28 16:28 WBC 7.31 RBC 4.33 Hgb 12.8 Hct 38.6 MCV 89 MCH 29.6 MCHC 33.2 RDW 12.8 Plt Count 328 MPV 9.5 Immature Gran % 0.1 Neutrophils % 47.5 Lymphocytes % 39.8 Monocytes % 10.4 Eosinophils % 1.1 Basophils % 1.1 Nucleated RBC % 0.0 Absolute Neutrophils 3.47 Absolute Lymphocytes 2.91 Absolute Monocytes 0.76 Absolute Eosinophils 0.08 Absolute Basophils 0.08 VBG pH VBG pCO2 VBG pO2 VBG HCO3 VBG Total CO2 VBG O2 Saturation VBG Base Excess Sodium 136 Potassium 3.5 Chloride 100 Carbon Dioxide 24.1 Anion Gap 11.9 H BUN 14 Creatinine 1.3 H Est GFR (CKD-EPI 2020) 52.33 Glucose 124 H Calcium 9.9 Magnesium 2.1 Total Bilirubin 0.4 AST 30 ALT 44 Alkaline Phosphatase 71 Troponin I < 50 Total Protein 8.3 H Albumin 4.1 Salicylates Urine Opiates Screen Urine Methadone Screen Acetaminophen Ur Barbiturates Screen Ur Tricyclics Screen Ur Amphetamines Screen U Benzodiazepines Scrn Urine Cocaine Screen Ur THC Screen Ethyl Alcohol < 3.0 COVID-19 Source SARS-CoV-2 (PCR) Influenza Type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
== END 2022-09-21 07:55 | disposition left against medical advice (07) | DRG 918 ==
LOC: ER 18:46 → ICU 19:21
PROVIDERS: Admitting Provider Family Medicine; Emergency Provider Student in an Organized Health Care Education/Training Program; PCP Nurse Practitioner; Visit Provider Family Medicine
DX: T39.012A Poisoning by aspirin, intentional self-harm, initial encounter (principal); F32.A Depression, unspecified; R00.0 Tachycardia, unspecified; I10 Essential (primary) hypertension; R61 Generalized hyperhidrosis; Z79.899 Other long term (current) drug therapy; K21.9 Gastro-esophageal reflux disease without esophagitis; F17.210 Nicotine dependence, cigarettes, uncomplicated; R32 Unspecified urinary incontinence; E78.5 Hyperlipidemia, unspecified; M54.12 Radiculopathy, cervical region; J45.909 Unspecified asthma, uncomplicated; H90.3 Sensorineural hearing loss, bilateral
CPT/HCPCS: 36415; 80048; 80053; 80307; 82805; 85027; 87637; 93005; 96360; 99291; 80320; 80329; 83735; 84484; 85025; 93010; 99223; 99238; J2060

== ENCOUNTER 2022-09-30 18:34 | Outpatient (REF) | payer MEDICAID, SELFPAY ==
[2022-09-30 18:52] LABS: Abs Immature Grans 0.02 10^3/uL (0.0-0.06); Absolute Basophil Count 0.08 10^3/uL (0.0-0.2); Absolute Monocyte Count 0.41 10^3/uL (0.1-0.8); Absolute Neutrophil Count 3.08 10^3/uL (1.2-6.7); Basophils % 1.4; Eosinophils % 1.8; HCT 37.9 % (36.0-46.0); HGB 12.6 g/dL (11.2-15.7); Immature Grans % 0.4; Lymphocytes % 35.1; MCH 29.5 pg (27.0-33.0); MCHC 33.2 % (32.0-36.0); MCV 89 fL (80-95); MPV 10.5 fL (8.0-11.0); Monocytes % 7.2; Neutrophils % 54.1; Platelet Count 316 10^3/uL (130-400); RBC 4.27 10^6/uL (3.93-5.22); RDW 13.2 % (11.7-14.6); RDW-SD 42.9 fL; WBC 5.69 10^3/uL (4.4-10.8)
[2022-09-30 19:29] LABS: Vitamin D 25 Total 19.9 ng/mL (30-100)
[2022-09-30 19:33] LABS: ALT 51 U/L (14-59); AST 32 U/L (15-37); Albumin 4.2 g/dL (3.4-5.0); Alkaline Phosphatase 65 U/L (46-116); Anion Gap 10.3 mmol/L (3-11); BUN 19 mg/dL (7-18); Bilirubin, Total 0.4 mg/dL (0.2-1.0); CO2 25.7 mmol/L (21.0-32.0); Calcium 9.8 mg/dL (8.5-10.1); Chloride 100 mmol/L (98-107); Estimated GFR 71.69 (mL/min/1.73m2); Folate 17.2 ng/mL (8.6-20.0); Glucose 120 mg/dL (74-106); Potassium 4.1 mmol/L (3.5-5.1); Sodium 136 mmol/L (136-145); Total Protein 8.2 g/dL (6.4-8.2); Vitamin B12 386 pg/mL (193-986)
== END 2022-09-30 18:35 | disposition home or self-care (01) ==
LOC: NCHCN 18:34
PROVIDERS: PCP Nurse Practitioner Family; Visit Provider Nurse Practitioner Family
DX: R41.3 Other amnesia (principal); E55.9 Vitamin D deficiency, unspecified; R73.03 Prediabetes; D52.9 Folate deficiency anemia, unspecified; R53.83 Other fatigue
CPT/HCPCS: 80053; 82306; 82607; 82746; 85025

== ENCOUNTER 2022-11-17 01:46 | Outpatient (CLI) | payer MEDICAID, SELFPAY ==
--- NOTE | 2022-11-17 16:00 | DI.MAMMO_ITS ---
Exam(s) MAMMO SCREENING EXAM: MAMMO SCREENING CLINICAL HISTORY: SCREENING MAMMO FOR BREAST CANCER Z12.31. TECHNIQUE: Bilateral full field digital CC and MLO mammographic images were obtained with 3D tomosyn thesis and utilizing computer aided detection (CAD). COMPARISON: Prior 2017 mammograms were reviewed. FINDINGS: There has been no significant change in the appearance and distribution of the fibroglandular tissue. There are no CAD designations. There are no new spiculated masses nor malignant appearing microcalcification groups. There is no significant architectural distortion nor skin thickening-retraction. IMPRESSION: No radiographic evidence of malignancy. BI-RADS Category 1 - Negative Breast Density - Category A - Almost entirely fatty Breast density Category C or D implies that the patient has dense breast tissue. Dense breast tissue can make it harder to find cancer on a mammogram. Dense breast tissue is also associated with an incr eased risk of breast cancer. This information about the result of the mammogram report was provided to the patient to raise their awareness. Use this report when you speak with the patient about their risks for breast cancer, which includes their family history. At that time, you may recommend additional screening tests (Ultrasoun d or MRI) as these tests may add significant information. A negative radiographic report should not delay biopsy if a dominant or clinically suspicious mass is present. Up to ten percent of cancers are not identified on mammography. A negative report may reinforce clinical impression. Adenosis and dense breasts may obscure an underlying neoplasm. False positive reports average 6 to 10%. Patient will receive a letter notifying them of these results.
== END 2022-11-17 02:06 ==
LOC: DI 01:46
PROVIDERS: PCP Nurse Practitioner Family; Visit Provider Nurse Practitioner Family
DX: Z12.31 Encounter for screening mammogram for malignant neoplasm of breast (principal)
CPT/HCPCS: 77063; 77067

== ENCOUNTER 2023-04-11 23:22 | Emergency (ER) | payer MEDICARE, MEDICAID, SELFPAY ==
[2023-04-11 23:31] VITALS: BP 154/103; PULSE 102; RESP 16; TEMP 36.5; O2SAT 98
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
[2023-04-12] MEDS: Amoxicillin 500 MG CAP PO (00:08)
--- NOTE | 2023-04-12 00:10 | NUR.NOTE ---
Nursing Note: Pt was not given inhaler, this med was put in while this RN was giving abx and doing discharge with patient. Pt left before nurse was able to acknowledge and administer order
== END 2023-04-12 00:11 | disposition home or self-care (01) ==
PROVIDERS: Emergency Provider Emergency Medicine; PCP Nurse Practitioner Family
DX: H92.03 Otalgia, bilateral (principal); R09.81 Nasal congestion
CPT/HCPCS: 99283; 99284

== ENCOUNTER 2023-05-04 19:15 | Outpatient (REF) | payer MEDICARE, MEDICAID, SELFPAY ==
[2023-05-04 19:53] LABS: HCT 37.9 % (36.0-46.0); HGB 12.5 g/dL (11.2-15.7); MCH 28.7 pg (27.0-33.0); MCV 87 fL (80-95); MPV 10.3 fL (8.0-11.0); Platelet Count 307 10^3/uL (130-400); RBC 4.35 10^6/uL (3.93-5.22); RDW 12.9 % (11.7-14.6); RDW-SD 40.6 fL; WBC 7.19 10^3/uL (4.4-10.8)
[2023-05-04 20:35] LABS: ALT 36 U/L (14-59); AST 21 U/L (15-37); Albumin 4.1 g/dL (3.4-5.0); Alkaline Phosphatase 73 U/L (46-116); Anion Gap 11.2 mmol/L (3-11); BUN 20 mg/dL (7-18); Bilirubin, Total 0.3 mg/dL (0.2-1.0); CO2 25.8 mmol/L (21.0-32.0); Calcium 9.3 mg/dL (8.5-10.1); Chloride 102 mmol/L (98-107); Estimated GFR 71.24 (mL/min/1.73m2); Glucose 118 mg/dL (74-106); Potassium 4.2 mmol/L (3.5-5.1); Sodium 139 mmol/L (136-145); Total Protein 7.6 g/dL (6.4-8.2)
[2023-05-04 21:09] LABS: Hemoglobin A1C 6.5 % (<5.7)
[2023-05-04 21:28] LABS: Folate > 20.0 ng/mL (8.6-20.0)
== END 2023-05-04 19:16 | disposition home or self-care (01) ==
LOC: NCHCN 19:15
PROVIDERS: PCP Nurse Practitioner Family; Visit Provider Nurse Practitioner Family
DX: E11.9 Type 2 diabetes mellitus without complications (principal); D52.9 Folate deficiency anemia, unspecified; E55.9 Vitamin D deficiency, unspecified; G47.20 Circadian rhythm sleep disorder, unspecified type
CPT/HCPCS: 80053; 82306; 85027; 82746; 83036

== ENCOUNTER 2024-06-28 02:14 | Outpatient (CLI) | payer MEDICARE, MEDICAID, SELFPAY ==
--- NOTE | 2024-06-28 13:45 | DI.US_ITS ---
Exam(s) US THYROID EXAM: US THYROID CLINICAL HISTORY: E04.1 Nontoxic single thyroid nodule. TECHNIQUE: Ultrasound thyroid performed using standard protocol. COMPARISON: No exams were available for comparison FINDINGS: ISTHMUS: 8 mm RIGHT LOBE: Size: 3.9 x 1.6 x 1.5 cm Echogenicity: Normal. Vascularity: Normal. Nodules: No suspicious nodules. There is a 0.3 x 0.2 x 0.3 cm cyst in the midpole of the right thyro id gland. This is a TI rads level 1 nodule. No follow-up is recommended. LEFT LOBE: Size: 4.1 x 1.5 x 1.9 cm Echogenicity: Normal. Vascularity: Normal. Nodules: None. OTHER FINDINGS: None. IMPRESSION: No suspicious thyroid nodules. Single 0.3 cm cyst in the right thyroid gland. DATA REPOSITORY:
== END 2024-06-28 02:34 ==
LOC: DI 02:14
PROVIDERS: PCP Nurse Practitioner Family; Visit Provider Nurse Practitioner Family
DX: E04.1 Nontoxic single thyroid nodule (principal)
CPT/HCPCS: 76536

== ENCOUNTER 2024-09-13 15:10 | Outpatient (REF) | payer MEDICARE, MEDICAID, SELFPAY ==
[2024-09-13 14:13] LABS: Abs Immature Grans 0.05 10^3/uL (0.0-0.06); Absolute Basophil Count 0.11 10^3/uL (0.0-0.2); Absolute Eosinophil Count 0.17 10^3/uL (0.0-0.7); Absolute Lymphocyte Count 2.74 10^3/uL (1.2-3.4); Absolute Monocyte Count 0.38 10^3/uL (0.1-0.8); Absolute Neutrophil Count 4.38 10^3/uL (1.2-6.7); Basophils % 1.4 %; Eosinophils % 2.2 %; HCT 40.1 % (36.0-46.0); HGB 13.1 g/dL (11.2-15.7); Immature Grans % 0.6 %; MCH 29.7 pg (27.0-33.0); MCHC 32.7 % (32.0-36.0); MCV 91 fL (80-95); MPV 10.1 fL (8.0-11.0); Monocytes % 4.9 %; Neutrophils % 55.9 %; Platelet Count 354 10^3/uL (130-400); RBC 4.41 10^6/uL (3.93-5.22); RDW-SD 43.1 fL; WBC 7.83 10^3/uL (4.4-10.8)
[2024-09-13 14:34] LABS: Hemoglobin A1C 6.4 % (<5.7)
[2024-09-13 14:54] LABS: ALT 51 U/L (14-59); AST 31 U/L (15-37); Alkaline Phosphatase 76 U/L (46-116); BUN 19 mg/dL (7-18); Bilirubin, Total 0.33 mg/dL (0.2-1.0); CREATININE 1.3 mg/dL (0.55-1.02); Calcium 9.8 mg/dL (8.5-10.1); Calculated LDL 165 mg/dL (<100); Chloride 102 mmol/L (98-107); Cholesterol 280 mg/dL (<200); Estimated GFR 51.68 (mL/min/1.73m2); Glucose 123 mg/dL (74-106); HDL Cholesterol 71 mg/dL (40-60); Potassium 3.9 mmol/L (3.5-5.1); Sodium 141 mmol/L (136-145); Total Protein 7.9 g/dL (6.4-8.2); Triglyceride 221 mg/dL (<150); Vitamin B12 330 pg/mL (193-986); Vitamin D 25 Total 22.2 ng/mL (30-100)
--- OUTSIDE RECORDS SUMMARY | 2024-09-13 15:13 | XMS_ITS | Encounter Summary ---
Author Organization [facility] Address [address] [place] [address] Care Team Providers Care Drugless Physician Name Role Phone Marco Parish MD Primary Care Provider [phone] Addison Sharif MD Primary Care Provider [phone] Encounter Details Date Type Department Care Team (Late st Contact Info) Description 03/21/2011 Historical Results Only [facility] - Main [address] [address] Rufus Singh MD [address] [place] [phone] Social History Tobacco Use Types Packs/Day Years Used Date Smoking Tobacco: Never Assessed Comments Unknown Sex and Gender Information Value Date Recorded Sex Assigned at Not on file Legal Sex Female 17:36 EST Gender Identity Not on file Sexual Orientation Not on file documented as of this encounter Plan of Treatment Not on file documented as of this encounter Procedures Procedure Name Priority Date/Time Associated Diagnosis Comments SURGICAL PATHOLOGY Routine 03/21/2011 documented in this encounter Results * SURGICAL PATHOLOGY (03/21/2011) 03/21/2011 03/21/2011 20: 39 EDT Narrative [facility] - 03/25/2011 15:16 EDT ----- ------- Name: GIDEON CARLIN ? : [birth year] ?Age/Sex: 38/F ?Unit#: [id number] ? Loc: SDS ? Status: DEP SDC ?? Reg Date: 03/21/11 ? Pt.Phone Number: ? ----- ------- Specimen: [id number] ? STATUS: SOUT ?Spec Date:03/21/11 ? Physician Copies: ?Rufus Singh Tissues: A ?? Female Reproductive System (UTERUS,TUBES, OVARIES) ? Maida Keyes ? CPT: 63898 ?? Units: ??1 ?FINAL DIAGNOSIS ? Uterus and cervix (96 grams), ovaries and fallopian tubes, hysterectomy and ? bilateral salpingo-oophorectomy: ?1. Endometrium; ? - Proliferative endometrium. ?2. Myometrium; ? - No pathologic features. ?3. Cervix; ? - Nabothian cysts. ?4. Ovaries, right and left; ? - Cystic and atretic follicles. ? - Serosal adhesions. ?5. Fallopian tubes, right and left; ? - Benign paratubal cysts. ? - Tubo-ovarian adhesions. ? GROSS DESCRIPTION ? Received in formalin labeled with the patient's name and uterus is a ? hysterectomy specimen consisting of uterus with attached cervix and bilateral ? adnexa. ??Uterine contour is mildly distorted. ??The uterus measures 8 cm fundus ? to cervix, 5 cm fundus to lower uterine segment, 5.5 cm cornu to cornu, and 3.5 ? cm anterior to posterior. ??The serosal surface is silva-pink, smooth, and ? glistening. ??Ectocervix mucosa is pale silva, smooth and glistening. ??The os is ? slit-shaped with adherent mucus. ??A blunt probe passes with ease through the ? endocervical canal into the uterine cavity and the uterus is bivalved into ? anterior and posterior halves. ??The uterus with attached cervix weighs 96 ? grams. ??The uterine cavity shows normal placement and contour. ??The endometrium ? is silva-pink with a uniform average thickness of 0.2 cm. ??The myometrium is ? silav-pink and trabeculated with a maximum thickness of 1.7 cm. ??Adenomyosis may ? be present. ??No leiomyomas or other masses are found. ??The endocervical canal ? is lined by silva wrinkled mucosa. ??Multiple Nabothian cysts are present. ??The ? right ovary is mildly enlarged and has a smooth greyish-purple surface, ? measuring 3.5 x 2.8 x 1.9 cm. ??The attached fallopian tube includes the ? fimbriated end and measures about 4 cm long x average 0.7 cm in diameter. ? Sectioning the right ovary shows a simple unilocular cyst with a smooth inner ? lining that is filled with straw-colored clear fluid. ??No excrescences or ----- ------- Patient: SUMITGIDEON ? #[id number] ? (Continued) ----- ------- Specimen: [id number] ? Received: 03/21/11 ?(Continued) ? GROSS DESCRIPTION ?(Continued) ? consolidations are seen. ??Minimal residual ovarian parencyma is appreciated. ? The left ovary has a pale silva-butler, somewhat smooth surface and measures 3.5 x ? 1.7 x 1 cm. ??Sectioning shows a few small simple cysts and corpora lutea. ??The ? left fallopian tube includes the fimbriated end and measures about 4 cm long x ? 0.8 cm in diameter. ??There are mild tubo-ovarian adhesions. ??No suspicious ? masses are found, r.s. 6. ? 1-2: ??Anterior and posterior endomyometrium. ? 3-4: ??Anterior and posterior cervix. ? 5: ?Right ovary and fallopian tube. ? 6: ?Left ovary and fallopian tube. CP ?? PREOP DX/CLINICAL HISTORY ?CHRONIC PELVIC PAIN, ENDOMETRIOSIS Signed ____(signature on file)____ Carlita Olvera M.D. 03/25/11 By the signature above, the attending physician certifies that he/she has personally conducted a gross and/or microscopic examination of the described specimens and rendered or confirmed the above diagnosis. Test Performed by [facility], [address] [place] [address] Dinner Cook: Carlita Olvera MD PHD ----- ------- us Rufus Singh MD PATHOLOGY ORDERABLES Final Result [facility] documented in this encounter Visit Diagnoses Not on filedocumented in this encounter Care Teams Drugless Physician Relationship Specialty Start Date End Date Marco Parish MD [address] [place] [address] PCP - General 02/26/09 05/14/15 Addison Shairf MD [address] [place] [id number] PCP - General 05/15/15 documented as of this encounter
--- OUTSIDE RECORDS SUMMARY | 2024-09-13 15:13 | XMS_ITS | Encounter Summary ---
Author Organization [facility] Address [address] [place] [address] Care Team Providers Care Competitive Athlete Name Role Phone Addison Sharif MD Primary Care Provider [phone] Reason for Visit * Reason Comments Hearing Loss both ears feel plugg ed. rt side is worse. no drainage. has been bother her for a few months now. pcp states no infections. * Consult (Routine) - Closed Specialty Diagnoses / Procedures Referred By Ellis soni Referred To Contact Otolaryngology Diagnoses Ear fullness Mona Mckeon James Gary, MD Phone: tel: fax: Referral ID Status Reason Start Date Expiration Date Visits Re quested Visits Authorized [id number] Closed 1 1 Encounter Details Date Type Department Care Team (Late st Contact Info) Description 10/27/2017 10:30 EST Office Visit [facility] ENT - [address] [address] Jose Oconnell MD [address] [place] [address] [address] [place] [address] Conductive hearing loss, bilateral (Primary Dx); Bilateral chronic serous otitis media Discharge Disposition: Auto Discharge Social History Tobacco Use Types Packs/Day Years Used Date Smoking Tobacco: Every Day Cigarettes 0.3 15 Smokeless Tobacco: Never Alcohol Use Standard Drinks/Week Comments No 0 (1 standard drink = 0.6 oz pur e alcohol) Comments Unknown Sex and Gender Information Value Date Recorded Sex Assigned at Not on file Legal Sex Female 17:36 EST Gender Identity Not on file Sexual Orientation Not on file documented as of this encounter Last Filed Vital Signs Vital Sign Reading Time Taken Comments Blood Pressure 126/87 10/27/2017 1031 EST Pulse 92 10/27/2017 1031 EST Temperature - - Respiratory Rate - - Oxygen Saturation - - Inhaled Oxygen Concentration - - Weight 99.8 kg (220 lb) 10/27/2017 1031 EST Height 165.1 cm (5' 5) 10/27/2017 1031 EST Body Mass Index 36.61 10/27/2017 1031 EST documented in this encounter Functional Status * Because of a physical, mental, or emotional condition, does this person have difficulty doing errands alone such as visiting a doctor's office or shopping? Answer Date of Assessment Author No 09/05/2015 9:20 EST documented as of this encounter Mental Status * Because of a physical, mental, or emotional condition, does this person have serious difficulty concentrating, remembering, or making decisions? Answer Entry Date Author No 09/05/2015 9:20 EST documented in this encounter Discharge Disposition Disposition Code Departure Means Destination Auto Discharge documented in this encounter Progress Notes * Jose Oconnell MD - 10/27/2017 1030 EST This is a consult from Addison Sharif for evaluation of hearing loss. HISTORY OF THE PRESENT ILLNESS: This is a 36-year-old female with bilateral hearing loss and ears feeling plugged and full, worse on the right side. No drainage. This has been happening for the past several months. He has a long history of chronic otitis media with effusion, status post multiple sets of PE tubes. The symptoms are of mild to moderate severity, constant. No known modifying factors or other associated signs or symptoms. PAST MEDICAL HISTORY: Significant for asthma, bowel disease, allergies, reflux, migraines, sleep apnea, depression. Previous surgeries include nasal surgery and UPPP, tympanostomy and PE tube placements, appendectomy, cholecystectomy, hysterectomy, carpal tunnel release, and . FAMILY HISTORY: Significant for asthma, diabetes, high blood pressure, high cholesterol, migraines,cancer, bleeding problems. SOCIAL HISTORY: Significant for smoking. She has drug allergies to CODEINE and VICODIN. Current medications include Albuterol, beclomethasone, Wellbutrin, Estrace, estradiol, Jonah, Neurontin, and Topamax. REVIEW OF SYSTEMS: Significant for weakness, weight loss, shortness of breath, headaches, light sensitivity, back pain, muscle pain, depression, ear pain, hearing loss, heartburn, nausea, bladder infections. Otherwise, negative for a complete review of all systems. PHYSICAL EXAM: General: Well-developed, well-nourished, alert, oriented, and cooperative adult female in no acute distress. Normal voice. Vital signs: Height 65 inches, weight 220, blood pressure 126/87, pulse 92. No reportable pain. The face is normal without lesions. Facial strength is symmetric.Eye exam is normal. Ears: External ears are normal. There is an extruded PE tube in the ear canal, a nd using the operating microscope and microinstruments, this was removed. The tympanic membranes are dull, retracted with middle ear fluid. An audiogram was performed, which reveals a bilateral conductive hearing loss. SRTs are 35 dB in right and 30 in the left with flat or type B tympanic membranes. Nose: Nasal dorsum is midline, the airway is patent. The oral cavity is clear. Posterior pharynx reveals a previous UPPP. Neck: No pathologic lymphadenopathy. Trachea is midline. Thyroid is normal.Chest is clear to auscultation. Heart: Regular rate and rhythm. IMPRESSION: Bilateral chronic otitis media with effusion. PLAN: Bilateral tympanostomy and PE tubes with longer-acting T tubes or U tubes. Informed consent. The procedure along with the possible risks, complications, alternatives and aims were discussed in detail with the patient who understands these risks and agrees with the surgery. documented in this encounter Plan of Treatment Not on file documented as of this encounter Procedures Procedure Name Priority Date/Time Associated Diagnosis Comments PROCEDURE REPORTS - SCANNED 10/28/2017 13:48 EST documented in this encounter Results * PROCEDURE REPORTS - SCANNED (10/28/2017 13:48 EST) 10/28/2017 13:4 8 EST us Scan 2 Paraprofessional Interpreter PROCEDURE/MINOR SURGICAL OR DERABLES Final Result documented in this encounter Visit Diagnoses Diagnosis Conductive hearing loss, bilateral- Primary Bilateral chronic serous otitis media Simple or unspecified chronic serous otitis media documented in this encounter Discontinued Medications Medication Sig Discontinue Reason Start Date End Da te FEXOFENADINE HCL (JONAH ORAL) Take 180 mg by mouth Duplicate Therapy 10/27/2017 topiramate (TOPAMAX) 25 mg tablet Take 25 mg by mouth daily. Duplicate Therapy 10/27/2017 documented as of this encounter Care Teams Competitive Athlete Relationship Specialty Start Date End Date Addison Sharif MD [address] [place] [id number] PCP - General 05/15/15 documented as of this encounter
--- OUTSIDE RECORDS SUMMARY | 2024-09-13 15:13 | XMS_ITS | Encounter Summary ---
Author Organization [facility] Address [address] [place] [address] Care Team Providers Care Union Organizer Name Role Phone Addison Sharif MD Primary Care Provider [phone] Reason for Visit * Reason Comments Tube Check is hearing echo soun ds. Encounter Details Date Type Department Care Team (Late st Contact Info) Description 11/18/2017 8:50 EST Office Visit [facility]NT - [place] [address] [place] [address] Jose Oconnell MD [address] [facility] [address] [place] [address] Chronic otitis media, unspecified otitis media type (Primary Dx) Social History Tobacco Use Types Packs/Day Years [...] on file documented as of this encounter Functional Status * Because of [...] 09/05/2015 9:20 EST documented in this encounter Progress Notes * Jose Oconnell MD - 11/18/2017 0851 EST S: Follow up PE tubes 11/11. Aylin Carlin is doing well, no ear infections, hearing well, speaking well, and no pain or drainage. O: Otomicroscopy: The U-tubes are in place and patent with well aerated middle ear spaces. No evidence of infection. A: Aylin is doing well status post BMT. P: Follow up in 3 months or PRN. Jose Oconnell MD 11/18/2017 documented in this encounter Plan of Treatment Not on file documented as of this encounter Visit Diagnoses Diagnosis Chronic otitis media, unspecified otitis media type- Primary documented in this encounter Historical Medications * This list may reflect changes made after this encounter. VENLAFAXINE HCL (EFFEXOR XR ORAL) Take by mouth. added in this encounter Care Teams Union Organizer Relationship Specialty Start Date End Date Addison Sharif MD [address] [place] [id number] PCP - General 05/15/15 documented as of this encounter
--- OUTSIDE RECORDS SUMMARY | 2024-09-13 15:13 | XMS_ITS | Encounter Summary ---
Author Organization [facility] Address [address] [place] [address] Care Team Providers Care Forestry Tree Pruner Name Role Phone Addison Sharif MD Primary Care Provider [phone] Reason for Referral * Radiology Services (Routine) - Closed Specialty Diagnoses / Procedures Referred By Contac t Referred To Contact Diagnoses Neck pain Procedures CERVICAL SPINE 4 OR MORE VIEWS Chaya Helms PA-C Phone: tel: fax: Referral ID Status Reason Start Date Expiration Date Visits Re quested Visits Authorized [id number] Closed 06/26/2015 1 1 Encounter Details Date Type Department Care Team (Late st Contact Info) Description 06/26/2015 Orders Only [facility] Spine Program - [address] [address] Chaya Helms PA-C [address] [place] [address] [place] [address] Neck pain (Primary Dx) Social History Tobacco Use Types [...] Procedure Name Priority Date/Time Associated Diagnosis Comments CERVICAL SPINE 4 OR MORE VIEWS Routine 07/05/2015 15:13 EDT Neck pain documented in this encounter Results * CERVICAL SPINE 4 OR MORE VIEWS (07/05/2015 15:13 EDT) Anatomical Region Laterality Modality Other 07/05/2015 15:1 3 EDT 07/05/2015 15:34 EDT Narrative 07/05/2015 15:34 EDT 4 views of the cervical spine July 05, 2015. History: Neck pain. Comparison: May 15, 2015. Findings: AP, lateral, and flexion and extension views of the cervical spine were acquired. In the neutral lateral projection there is slight retrolisthesis of C3 on C4. Alignment is otherwise anatomic. Disc space narrowing is noted at C5-C6 and C6-C7 with associated degenerative endplate changes. In flexion and extension no instability is present. Procedure Note Mario Virk MD - 07/05/2015 4 views of the cervical spine July 05, 2015. History: Neck pain. Comparison: May 15, 2015. Findings: AP, lateral, and flexion and extension views of the cervical spine were acquired. In the neutral lateral projection there is slight retrolisthesis of C3 on C4. Alignment is otherwise anatomic. Disc space narrowing is noted at C5-C6 and C6-C7 with associated degenerative endplate changes. In flexion and extension no instability is present. Chaya Helms PA-C IMG DIAGNOSTIC IMAGING ORDERABLES Final Result documented in this encounter Visit Diagnoses Diagnosis Neck pain- Primary Cervicalgia documented in this encounter Care Teams Forestry Tree Pruner Relationship Specialty Start Date End Date Addison Sharif MD [address] [facility] [address] [place] [address] PCP - General 05/15/15 documented as of this encounter
--- OUTSIDE RECORDS SUMMARY | 2024-09-13 15:13 | XMS_ITS | Encounter Summary ---
Author Organization [facility] Address [address] [place] [address] Care Team Providers Care Child Care Group Leader Name Role Phone Marco Parish MD Primary Care Provider [phone] Addison Sharif MD Primary Care Provider [phone] Encounter Details Date Type Department Care Team (Late st Contact Info) Description 01/03/2011 Historical Results Only [facility] - Main [address] [address] Rufus Singh MD [address] [place] [phone] Social History Tobacco Use Types Packs/Day Years [...] Date/Time Associated Diagnosis Comments SURGICAL PATHOLOGY Routine 01/03/2011 documented in this encounter Results * SURGICAL PATHOLOGY (01/03/2011) 01/03/2011 01/03/2011 12: 32 EST Narrative [facility] - 01/06/2011 13:27 EDT ----- ------- Name: GIDEON CARLIN ? : [birth year] ?Age/Sex: 38/F ?Unit#: [id number] ? Loc: SDS ? Status: DEP SDC ?? Reg Date: 01/03/11 ? Pt.Phone Number: ? ----- ------- Specimen: [id number] ? STATUS: SOUT ?Spec Date:01/03/11 ? Physician Copies: ?Rufus Singh J Tissues: A ?? Peritoneum (PERITONEUM) ?Maida Keyes ? B ?? Female Reproductive System (ENDOCERVIX) ? C ?? Female Reproductive System (ENDOMETRIUM) ? CPT: 43081 ?? Units: ??3 ?FINAL DIAGNOSIS ? A. Peritoneum, biopsy; ? - ??Endometriosis. ? B. Endocervix, curettage; ? - ??Benign endocervical gland fragments. ?Mucoid debris. ? C. Endometrium, curettage; ? - ??Proliferative endometrium. ? GROSS DESCRIPTION ? A. Received in formalin and labeled peritoneal biopsy are mucosal tissue ? fragments aggregating 0.2 cm in greatest dimensions, e.s. ? B. Received in formalin and labeled ECC is a 0.5 cc aggregate of mucoid ? material, e.s. ? C. Received in formalin and labeled endometrial currettings is a 2 cc volume ? of pink-silva fibromucosal tissue fragments and fragments of yellow-brown ? hemorrhagic blood. ??The specimen is entirely submitted. BT ?? PREOP DX/CLINICAL HISTORY ?CHRONIC PELVIC PAIN Signed ____(signature on file)____ Alex Trevino M.D. 01/06/11 ?? By the signature above, the attending physician certifies that he/she has personally conducted a gross and/or microscopic examination of the described specimens and rendered or confirmed the above diagnosis. Test Performed by [facility], [address] [place] [address] Grant Officer: Carlita Olvera MD PHD ----- ------- us Rufus Singh MD PATHOLOGY ORDERABLES Final Result [facility] documented in this encounter Visit Diagnoses Not on filedocumented in this encounter Care Teams Child Care Group Leader Relationship Specialty Start Date End Date Marco Parish MD [address] [place] [address] PCP - General 02/26/09 05/14/15 Addison Sharif MD [address] [address] PCP - General 05/15/15 documented as of this encounter
--- OUTSIDE RECORDS SUMMARY | 2024-09-13 15:13 | XMS_ITS | Encounter Summary ---
Author Organization [facility] Address [address] [place] [address] Care Team Providers Care Production Control Scheduler Name Role Phone Marco Parish MD Primary Care Provider Encounter Details Date Type Department Care Team (Late st Contact Info) Description 09/23/2007 Results Only [facility] - [facility] [address] [place] [address] Delfina Avila, [address] [place] [id number] Social History Tobacco Use Types Packs/Day Years [...] Procedure Name Priority Date/Time Associated Diagnosis Comments CYTOPATHOLOGY Routine 09/23/2007 0:00 EST documented in this encounter Results * CYTOPATHOLOGY (09/23/2007 0:00 EST) Pathology Report: CYTOPATHOLOGY REPORT Reports generated via electronic interface contain original data; however they are lacking the format of the original report. Caution should be taken when reading/interpreti ng unformatted reports. Name: ? GIDEON ARANA ? Accession #: ? [id number] : ? 1980 (Age: 26) ??F ?Collect Date: ? 09/23/2007 Location: ? [facility] ? Receive Date: ? 09/24/2007 Provider: ?DELFINA AVILA CNM Copy to: ? Specimen/Source: ?ThinPrep Pap Test, Cervix/Endocervix, processed on [employer] Online ThinPrep Imaging System, with manual evaluation Last Menstrual Period: ? 09/18/07 Menstrual/Pregnanc y Status: ? Post Previous Gynecologic Pathology: ? Yes: + 10 yrs ago, wnl since Other: ? HPVA - HPV testing requested if ASC-US on the current ThinPrep Pap test. ? SPECIMEN ADEQUACY ? Satisfactory for Evaluation - transformation zone component present GENERAL CATEGORIZATION ? Negative for Intraepithelial Lesion or Malignancy ? Document reviewed and electronically signed by: ? ELSY Sims(ASCP) ? Report Date: ??09/28/2007 10:34 End of Report CARL[facility] MELENDEZ 09/23/2007 09/24/2007 us Delfina Avila CNM PATHOLOGY ORDERABLES Final Re sult CARLOS MELENDEZ [address] [place] [address] documented in this encounter Visit Diagnoses Not on filedocumented in this encounter Care Teams Production Control Scheduler Relationship Specialty Start Date End Date Marco Parish MD [address] [place] [address] PCP - General 02/26/09 05/14/15 documented as of this encounter
--- OUTSIDE RECORDS SUMMARY | 2024-09-13 15:13 | XMS_ITS | Encounter Summary ---
Author Organization [facility] Address [address] [place] [address] Care Team Providers Care Refuge Manager Name Role Phone Addison Sharif MD Primary Care Provider [phone] Encounter Details Date Type Department Care Team (Late st Contact Info) Description 05/01/2021 Lab Requisition [facility] Pathology & Laboratory Medicine - [facility] [address] [place] [address] Outr Resulting Lab, Provider Social History Tobacco Use Types Packs/Day Years Used Date Smoking Tobacco: Every Day Cigarettes 0.3 15 Smokeless Tobacco: Never Alcohol Use Standard Drinks/Week Comments No 0 (1 standard drink = 0.6 oz pur e alcohol) Interpersonal Safety Answer Date Record ed Physically Hurt Never 05/27/2020 Verbally Threaten Not on file 05/27/2020 Comments Unknown Sex and Gender Information Value [...] 09/05/2015 9:20 EST documented in this encounter Plan of Treatment Not on file documented as of this encounter Procedures Procedure Name Priority Date/Time Associated Diagnosis Comments CELIAC DISEASE PANEL Routine 04/30/2021 13:29 EDT documented in this encounter Results * CELIAC DISEASE PANEL (04/30/2021 13:29 EDT) Tissue Transglutaminase Antibody IGA <1.2 <4.0 U/mL 05/06/2021 14:[address] [facility] Comment: A negative result may be due to IgA deficiency and does not rule out celiac disease. ? Negative: ??<4.0 U/mL ? Weak Positive: ??4.0 - 10.0 U/mL ? Positive: ??>10.0 U/mL Results were obtained with the [employer] Lite R h-tTG IgA BONILLA assay on the [employer] DSX. IgA 179 85 - 499 mg/dL 05/06/2021 14:[address] [facility] Celiac Disease Interpretation Negative Serology. Celiac disease unlikely. Approximately 10% of patients with celiac disease are seronegative. Patients who are already adhering to a gluten-free diet may also be seronegative. If celiac disease is highly clinically suspected, referral to gastroenterology for additional evaluation is recommended. 05/06/2021 14:[address] [facility] Blood VENOUS BLOOD / Unknown 04/30/2021 13:29 EDT 05/01/2021 16:01 EDT us Provider Outr Resulting Lab IMMUNOLOGY AND SEROL OGY ORDERABLES Final Result [facility] [address] [place] [address] documented in this encounter Visit Diagnoses Not on filedocumented in this encounter Care Teams Refuge Manager Relationship Specialty Start Date End Date Addison Sharif MD [address] [facility] [address] [place] [address] PCP - General 05/15/15 documented as of this encounter
--- OUTSIDE RECORDS SUMMARY | 2024-09-13 15:13 | XMS_ITS | Encounter Summary ---
Author Organization [facility] Address [address] [place] [address] Care Team Providers Care Transition Rn Name Role Phone Unavailable Primary Care Provider Unavailabl e Encounter Details Date Type Department Care Team (Latest Contact Info) Description 07/15/2007 18:48 EDT - 07/28/2007 11:59 EDT Hospital Encounter [facility]Baby [facility] [address] [place] [address] Patricia Moscoso MD [address] [id number] Discharge Disposition: Home or Self Care Social History Tobacco Use Types Packs/Day Years Used Date Smoking Tobacco: Never Assessed Comments Unknown Sex and Gender Information Value Date Recorded Sex Assigned at Not on file Legal Sex Female 17:36 EST Gender Identity Not on file Sexual Orientation Not on file documented as of this encounter Discharge Disposition Disposition Code Departure Means Destination Home or Self Care documented in this encounter Plan of Treatment Not on file documented as of this encounter Procedures Procedure Name Priority Date/Time Associated Diagnosis Comments COMPLETE BLOOD COUNT Routine 07/26/2007 8:01 EDT COMPLETE BLOOD COUNT AND DIFFERENTIAL Routine 07/24/2007 8:30 EDT C REACTIVE PROTEIN Routine 07/24/2007 8: 30 EDT CLOSING COORDINATOR US OBSTETRICAL LIMITED 07/19/2007 14:57 EDT COMPLETE BLOOD COUNT Routine 07/17/2007 15:30 EDT C REACTIVE PROTEIN Routine 07/17/2007 15 :30 EDT URINALYSIS WITH MICROSCOPIC IF POSITIVE Routine 07/15/2007 20:30 EDT UA REFLEX Routine 07/15/2007 20:30 EDT URINE CULTURE IF POSITIVE Routine 07/15/2007 20:30 EDT FIBRINOGEN Routine 07/15/2007 20:00 EDT COMPLETE BLOOD COUNT AND DIFFERENTIAL Routine 07/15/2007 20:00 EDT C REACTIVE PROTEIN Routine 07/15/2007 20 :00 EDT URIC ACID Routine 07/15/2007 20:00 EDT BUN Routine 07/15/2007 20:00 EDT ALT Routine 07/15/2007 20:00 EDT AST Routine 07/15/2007 20:00 EDT CREATININE Routine 07/15/2007 20:00 EDT documented in this encounter Results * (ABNORMAL) HEMAGRAM (07/26/2007 8:01 EDT) WBC 10.15 4.0 - 12.4 K/cmm [facility] RBC 3.21(L) 3.86 - 5.04 M/cmm [facility] Hemoglobin 9.8(L) 11.6 - 15.2 gm/dl [facility] HCT 28.2(L) 34.9 - 44.4 % [facility] MCV 88 81 - 98 fl [facility] MCH 30.7 26.7 - 33.3 pg [facility] MCHC 35.0 32.1 - 35.9 gm/dl [facility] PLT 260 141 - 320 K/cmm [facility] RDW-CV 14.5 11.7 - 14.6 % [facility] 07/26/2007 8:01 EDT 07/26/2007 8:02 EDT Patricia Moscoso MD HEMATOLOGY & PF4 ORDERABLES Fi nal Result Performing Organization Address City/[facility]/ZIP Co de Phone Number [facility] [address] [place] [address] * (ABNORMAL) C-REACTIVE PROTEIN (07/24/2007 8:30 EDT) Pathologist [facility] C-Reactive Protein 1.8(H) <1.0 mg/dl [facility] 07/24/2007 8:30 EDT 07/24/2007 8:51 EDT Patricia Moscoso MD CHEMISTRY & BLOOD GAS ORDERABL ES Final Result Performing Organization Address City/[facility] Co de Phone Number [facility] [address] [place] [address] * (ABNORMAL) HEMAGRAM AND DIFFERENTIAL (07/24/2007 8:30 EDT) [facility] WBC 9.75 4.0 - 12.4 K/cmm [facility] RBC 3.20(L) 3.86 - 5.04 M/cmm [facility] Hemoglobin 9.8(L) 11.6 - 15.2 gm/dl [facility] HCT 28.1(L) 34.9 - 44.4 % [facility] MCV 88 81 - 98 fl [facility] MCH 30.6 26.7 - 33.3 pg [facility] MCHC 34.9 32.1 - 35.9 gm/dl [facility] PLT 254 141 - 320 K/cmm [facility] RDW-CV 14.4 11.7 - 14.6 % [facility] % Neutrophils 74.6 45.5 - 79.7 % [facility] % Lymphocytes 17.5 15.0 - 46.8 % [facility] % Monocytes 6.3 1.8 - 12.0 % [facility] % Eosinophils 1.2 0.6 - 6.9 % [facility] % Basophils 0.4 0.2 - 1.4 % [facility] ABS Neutrophils 7.27 2.20 - 8.85 K/cmm [facility] ABS Lymphs 1.71 1.09 - 3.30 K/cmm [facility] ABS Monocytes 0.61 0.1 - 0.8 K/cmm [facility] ABS Eosinophils 0.12 0.03 - 0.61 K/cmm [facility] ABS Basophils 0.04 0.01 - 0.11 K/cmm [facility] Type of Diff: Automated [facility] 07/24/2007 8:30 EDT 07/24/2007 8:51 EDT us Patricia Moscoso MD PACKAGES & DNA PROBE ORDERABLE S Final Result Performing Organization Address City/State/[facility] Co de Phone Number [facility] [address] [place] [address] * CLOSING COORDINATOR US OBSTETRICAL LIMITED (07/19/2007 14:57 EDT) Anatomical Region Laterality Modality Other 07/19/2007 14:5 7 EDT Narrative 04/16/2009 2:34 EDT 27 yo @ 32+3 with premature rupture of membraine, needs growth u/s OBSTETRICAL LIMITED ??Jul 19, 2007 2:57:00 PM Indication: 27 yo @ 32+5 with premature rupture of membraine, needs growth u/s Findings: Transabdominal ultrasound of the gravid uterus for assessment of growth was performed. A fetus is identified in utero in cephalic position. The placenta is anterior. The following morphometric measurements were obtained: Biparietal diameter (Hadlock): ??8.95 cm ??average: 36 weeks and 2 days Head circumference (Hadlock): ??31.34 cm ??average: 35 weeks and 1 day Occipital frontal diameter: ??10.67 cm Abdominal circumference (Hadlock): 31.23 cm ??average: 35 weeks and 1 day Humerus length (Aleyda): ?? 6.08 cm ??average: 35 weeks and 1 day Femur length (Hadlock): ?? 6.81 cm ??average: 35 weeks and 0 day The average uterine age (AUA) based on these measurements 35 weeks and 2 days + / - 2 weeks and 3 days. Estimated weight was 2623 g + / - 0.393 g ( 5 lb and 13 oz + / - 14 oz) I have personally reviewed the images and the above interpretation and agree with the findings. Addendum Begins Addendum: In keeping with the history of premature rupture of membranes, oligohydramnios is present and very little amniotic fluid is identified. Addendum Ends Procedure Note Yrn Barboza MD - 04/16/2009 27 yo @ 32+3 with premature rupture of membraine, needs growth u/s OBSTETRICAL [facility] Jul 19, 2007 2:57:00 PM Indication: 27 yo @ 32+5 with premature rupture of membraine, needs growth u/s Findings: Transabdominal ultrasound of the gravid uterus for assessment of growth was performed. A fetus is identified in utero in cephalic position. The placenta is anterior. The following morphometric measurements were obtained: Biparietal diameter (Hadlock): 8.95 cm average: 36 weeks and 2 days Head circumference (Hadlock): 31.34 cm average: 35 weeks and 1 day Occipital frontal diameter: 10.67 cm Abdominal circumference (Hadlock): 31.23 cm average: 35 weeks and 1 day Humerus length (Aleyda): 6.08 cm average: 35 weeks and 1 day Femur length (Hadlock): 6.81 cm average: 35 weeks and 0 day The average uterine age (AUA) based on these measurements 35 weeks and 2 days + / - 2 weeks and 3 days. Estimated weight was 2623 g + / - 0.393 g ( 5 lb and 13 oz + / - 14 oz) I have personally reviewed the images and the above interpretation and agree with the findings. Addendum Begins Addendum: In keeping with the history of premature rupture of membranes, oligohydramnios is present and very little amniotic fluid is identified. Addendum Ends us Mona Betancourt MD IMG US CLOSING COORDINATOR ORDERABLES Final Result * (ABNORMAL) C-REACTIVE PROTEIN (07/17/2007 15:30 EDT) Pathologist [facility] C-Reactive Protein 1.0(H) <1.0 mg/dl [facility] 07/17/2007 15:3 0 EDT 07/17/2007 15:35 EDT Patricia Moscoso MD CHEMISTRY & BLOOD GAS ORDERABL ES Final Result Performing Organization Address City/[facility] Co de Phone Number [facility] [address] [place] [address] * (ABNORMAL) HEMAGRAM (07/17/2007 15:30 EDT) [facility] WBC 9.62 4.0 - 12.4 K/cmm [facility] RBC 3.15(L) 3.86 - 5.04 M/cmm [facility] Hemoglobin 9.5(L) 11.6 - 15.2 gm/dl [facility] HCT 27.9(L) 34.9 - 44.4 % [facility] MCV 89 81 - 98 fl [facility] MCH 30.2 26.7 - 33.3 pg [facility] MCHC 34.1 32.1 - 35.9 gm/dl [facility] PLT 245 141 - 320 K/cmm [facility] RDW-CV 14.4 11.7 - 14.6 % [facility] 07/17/2007 15:3 0 EDT 07/17/2007 15:35 EDT Patricia Moscoso MD HEMATOLOGY & PF4 ORDERABLES Fi nal Result Performing Organization Address City/[facility] Co de Phone Number [facility] [address] [place] [address] * UA REFLEX (07/15/2007 20:30 EDT) Pathologist [facility] UA Billing Microscopic not indicated. [facility] 07/15/2007 20:3 0 EDT 07/15/2007 20:41 EDT Patricia Moscoso MD URINALYSIS ORDERABLES Final Re sult Performing Organization Address [facility] Co de Phone Number [facility] [address] [place] [address] * (ABNORMAL) URINALYSIS (07/15/2007 20:30 EDT) Color, UA Yellow [facility] Clarity, UA Clear [facility] Glucose, UA Norm NORM [facility] Bilirubin, UA Neg NEG [facility] Ketones, UA Small(A) NEG [facility] Specific Williamson, Urine 1.020 1.005 - 1.02 [facility] Blood, UA Neg NEG [facility] pH, UA 7.5 5.0 - 9.0 [facility] Protein, UA Neg NEG [facility] Urobilinogen, UA 1.0(A) NORM mg/dL [facility] Nitrite, UA Neg NEG [facility] Leuk Esterase Neg NEG [facility] 07/15/2007 20:3 0 EDT 07/15/2007 20:41 EDT Patricia Moscoso MD URINALYSIS ORDERABLES Final Re sult Performing Organization Address [facility] Co de Phone Number [facility] [address] [place] [address] * CULTURE IF UA POSITIVE (07/15/2007 20:30 EDT) Culture if Indicated Culture not indicated by urinalysis results. [facility] 07/15/2007 20:3 0 EDT 07/15/2007 20:41 EDT Patricia Moscoso MD MICROBIOLOGY - GENERAL ORDERAB LES Final Result Performing Organization Address [facility] Co de Phone Number [facility] [address] [place] [address] * URIC ACID (07/15/2007 20:00 EDT) Uric Acid 4.1 2.2 - 7.7 mg/dl [facility] 07/15/2007 20:0 0 EDT 07/15/2007 20:41 EDT us Patricia Moscoso MD CHEMISTRY & BLOOD GAS ORDERABL ES Final Result Performing Organization Address [facility] de Phone Number [facility] [address] [place] [address] * (ABNORMAL) FIBRINOGEN (07/15/2007 20:00 EDT) Fibrinogen 511(H) 220 - 410 mg/dl [facility] 07/15/2007 20:0 0 EDT 07/15/2007 20:41 EDT us Patricia Moscoso MD HEMATOLOGY & PF4 ORDERABLES Fi nal Result Performing Organization Address [facility] de Phone Number [facility] [address] [place] [address] * (ABNORMAL) C-REACTIVE PROTEIN (07/15/2007 20:00 EDT) C-Reactive Protein 1.2(H) <1.0 mg/dl [facility] 07/15/2007 20:0 0 EDT 07/15/2007 20:41 EDT us Patricia Moscoso MD CHEMISTRY & BLOOD GAS ORDERABL ES Final Result Performing Organization Address [facility] de Phone Number [facility] [address] [place] [address] * (ABNORMAL) CREATININE (07/15/2007 20:00 EDT) Creatinine 0.48(L) 0.7 - 1.5 mg/dl [facility] GFR, Calculated >60 ml/min/1.7 3m2 [facility] 07/15/2007 20:0 0 EDT 07/15/2007 20:41 EDT us Patricia Moscoso MD CHEMISTRY & BLOOD GAS ORDERABL ES Final Result [facility] [address] [place] [address] * (ABNORMAL) HEMAGRAM AND DIFFERENTIAL (07/15/2007 20:00 EDT) WBC 11.13 4.0 - 12.4 K/cmm [facility] RBC 3.46(L) 3.86 - 5.04 M/cmm [facility] Hemoglobin 10.5(L) 11.6 - 15.2 gm/dl [facility] HCT 30.5(L) 34.9 - 44.4 % [facility] MCV 88 81 - 98 fl [facility] MCH 30.3 26.7 - 33.3 pg [facility] MCHC 34.4 32.1 - 35.9 gm/dl [facility] PLT 264 141 - 320 K/cmm [facility] RDW-CV 14.6 11.7 - 14.6 % [facility] % Neutrophils 75.2 45.5 - 79.7 % [facility] % Lymphocytes 16.7 15.0 - 46.8 % [facility] % Monocytes 6.2 1.8 - 12.0 % [facility] % Eosinophils 1.7 0.6 - 6.9 % [facility] % Basophils 0.2 0.2 - 1.4 % [facility] ABS Neutrophils 8.36 2.20 - 8.85 K/cmm [facility] ABS Lymphs 1.86 1.09 - 3.30 K/cmm [facility] ABS Monocytes 0.69 0.1 - 0.8 K/cmm [facility] ABS Eosinophils 0.19 0.03 - 0.61 K/cmm [facility] ABS Basophils 0.02 0.01 - 0.11 K/cmm [facility] Type of Diff: Automated [facility] 07/15/2007 20:0 0 EDT 07/15/2007 20:41 EDT us Patricia Moscoso MD PACKAGES & DNA PROBE ORDERABLE S Final Result [facility] [address] [place] [address] * (ABNORMAL) BUN (07/15/2007 20:00 EDT) BUN 7(L) 10 - 26 mg/dl [facility] 07/15/2007 20:0 0 EDT 07/15/2007 20:41 EDT Patricia Moscoso MD CHEMISTRY & BLOOD GAS ORDERABL ES Final Result Performing Organization Address [facility] Co de Phone Number [facility] [address] [place] [address] * AST (07/15/2007 20:00 EDT) AST 19 15 - 46 U/L [facility] 07/15/2007 20:0 0 EDT 07/15/2007 20:41 EDT Patricia Moscoso MD CHEMISTRY & BLOOD GAS ORDERABL ES Final Result Performing Organization Address [facility] de Phone Number [facility] [address] [place] [address] * ALT (07/15/2007 20:00 EDT) ALT 21 9 - 52 U/L [facility] 07/15/2007 20:0 0 EDT 07/15/2007 20:41 EDT Patricia Moscoso MD CHEMISTRY & BLOOD GAS ORDERABL ES Final Result Performing Organization Address [facility] Co de Phone Number [facility] [address] [place] [address] documented in this encounter Visit Diagnoses Not on filedocumented in this encounter
--- OUTSIDE RECORDS SUMMARY | 2024-09-13 15:13 | XMS_ITS | Encounter Summary ---
Author Organization [facility] Address [address] [place] [address] Care Team Providers Care Fire Technician Name Role Phone Marco Parish MD Primary Care Provider [phone] Encounter Details Date Type Department Care Team (Late st Contact Info) Description 04/10/2010 Results Only [facility] [address] [place], [place] [address] Pooja Tejeda MD [address] [place] [address] Social History Tobacco Use Types Packs/Day Years [...] Procedure Name Priority Date/Time Associated Diagnosis Comments HPV DETECTION, HIGH RISK TYPES Routine 04/10/2010 17:58 EDT CYTOPATHOLOGY Routine 04/10/2010 0:00 EDT documented in this encounter Results * HUMAN PAPILLOMA VIRUS DNA TEST (04/10/2010 17:58 EDT) Specimen Description Cervix, ThinPrep vial [facility] Result Negative for HPV types 16, 18, 31, 33, 35, 39, 45, 51, 52, 56, 58, 59, and 68. [facility] Report Status Final 04/18/2010 [facility] 04/10/2010 17:5 8 EDT 04/16/2010 14:49 EDT us Pooja Tejeda MD MICROBIOLOGY - GENERAL ORDERAB LES Final Result [facility] [address] [place] [address] * CYTOPATHOLOGY (04/10/2010 0:00 EDT) Pathology Report: CYTOPATHOLOGY REPORT ? Reports generated via electronic interface contain original data; ? however they are lacking the format of the original report. ? Caution should be taken when reading/interpreti ng unformatted reports. ? Name: ? GIDEON ARANA ? Accession #: ? [id number] ? : ? 1980 (Age: 29) ??F ?Collect Date: ? 04/10/2010 ? Location: ? [facility] ? Receive Date: ? 04/11/2010 ? Provider: ?POOJA VISELLI MD ? Copy to: ? Specimen/Source: ?Pap Test, Cervix/Endocervix, ThinPrep Imaging System ? with manual evaluation ? Last Menstrual Period: ? 06/02/10 ? Other: ? HPVDX - HPV testing requested regardless of diagnosis on current ThinPrep Pap ?? test. ? SPECIMEN ADEQUACY ? Satisfactory for Evaluation ? - transformation zone component present ? GENERAL CATEGORIZATION ? Negative for Intraepithelial Lesion or Malignancy ? Document reviewed and electronically signed by: ? Amy Seven, [place](ASCP) ? Report Date: ??04/16/2010 09:04 ? End of Report ? [facility] 04/10/2010 04/11/2010 us Pooja Tejeda MD PATHOLOGY ORDERABLES Final Res ult [facility] [address] [place] [address] documented in this encounter Visit Diagnoses Not on filedocumented in this encounter Care Teams Fire Technician Relationship Specialty Start Date End Date Marco Parish MD [address] [place] [address] PCP - General 02/26/09 05/14/15 documented as of this encounter
--- OUTSIDE RECORDS SUMMARY | 2024-09-13 15:13 | XMS_ITS | Encounter Summary ---
Author Organization [facility] Address [address] [place] [address] Care Team Providers Care Iso Coordinator Name Role Phone Addison Sharif MD Primary Care Provider [phone] Reason for Visit * Reason Comments Neck Pain WC TESI left C4-C5 f /u 50% relief Encounter Details Date Type Department Care Team (Late st Contact Info) Description 10/11/2015 11:15 EST Office Visit [facility] Spine Program - [address] [address] Chaya Helms PA-C [address] [place] [address] [place] [address] Neck pain (Primary Dx) Social History Tobacco Use Types Packs/Day Years Used Date Smoking Tobacco: Every Day Cigarettes 0.3 15 Alcohol Use Standard Drinks/Week Comments No 0 [...] documented in this encounter Progress Notes * Chaya Helms PA - 10/11/2015 1237 EST Aylin Carlin is being seen as a consultation from Dr. Sharif. Chief Complaint Patient presents with ??? Neck Pain WC TESI left C4-C5 f/u 50% relief The encounter diagnosis was Neck pain. HPI Ms. Carlin is a 34 y.o. pleasant female who returns to the clinic today, 10/11/2015, for FU post left C4-C5 TFESI (09/05/2015). The patient reports 50% ongoing relief of symptoms after the injections. There is more relief of SENIOR TECHNICAL EDITOR and less relief in left scapula and shoulder. Ms. Carlin presented to the clinic for the fist time in 07/05/2015, with 100% left-sided neck pain radiating into the left shoulder and medial aspect of her left shoulder blade. The patient reports acute onset of symptoms that started as a result of a work related injury that took place in 2014. She threw a 50-lb bag of garbage over her head and into the dumpster. She has not improved significantly since then. Symptoms wax and wane. She has tried PT for two months, but she did not get any relief of symptoms. She had trigger point injections, which made her worse. She has not triedCHIRO. Application of heat alleviate her symptoms the most. Moving in general aggravate her symptoms. She rates her pain as 7/10. This is a W/C related visit. She has not been working since May 23, 2015. She is on worker's comp disability. HPI Patient Active Problem List Diagnosis ??? Neck pain Past Medical History Diagnosis Date ??? Asthma ??? Depression ??? GERD (gastroesophageal reflux disease) Past Surgical History Procedure Laterality Date ??? Appendectomy ??? section ??? Cholecystectomy ??? Nose surgery ??? Throat surgery ??? Hysterectomy ??? Carpal tunnel release Bilateral History Substance Use Topics ??? Smoking status: Current Every Day Smoker -- 0.25 packs/day for 15 years ??? Smokeless tobacco: Not on file ??? Alcohol Use: No Family History Problem Relation Age of Onset ??? Diabetes Mother ??? High Blood Pressure Mother ??? High Cholesterol Mother ??? Migraines Mother Current Outpatient Prescriptions Medication Sig Dispense Refill ??? buPROPion (WELLBUTRIN XL) 150 mg XL tablet Take 150 mg by mouth daily ??? ESTRADIOL, BULK, MISC 2 mg by misc (non-drug; combo route) route ??? FEXOFENADINE HCL (JONAH ORAL) Take 180 mg by mouth ??? gabapentin (NEURONTIN) 100 mg capsule Take 1 Cap by mouth 3 times daily 90 Cap 2 ??? TOPIRAMATE (TOPAMAX ORAL) Take by mouth No current facility-administered medications for this visit. Allergies Allergen Reactions ??? Codeine ??? Vicodin [Hydrocodone-Acetaminophen] Review of Systems Physical Exam Ortho Exam Neurologic Exam Today, 10/11/2015, I independently reviewed the following: Plain radiographs (AP/Lat/Flex/Ex): 1. Reversal of cervical lordosis 2. Posterior subluxation of C2 on C3 and C3 on C4 noted Ex 3. Severe facet arthropathy of the cervical spine 4. Multilevel severe disc height reduction with anterior osteophyte consistent with degenerative disc disease 5. No fractures identified MRI from prior work up in March 2015: C3-C4 level, there is a prominent, concentric disc osteophytic ridge which when coupled with hypertrophy ligamentum flavum result in effacement of the CSF both ventral and dorsal to the cord and cordimpingement. Uncovertebral joint facet hypertrophy results in severe right and moderate left neuralforaminal narrowing. C4-C5 level, there is a small, concentric disc osteophytic ridge mildly indents the ventral margin of thecal sac. Uncovertebral joint and facet hypertrophy results in moderate left neural foraminal narrowing. The right neural foramen is patent. C5-C6 level, a prominent, concentric disc ossific ridge indents the ventral margin of thecal sac and specifically posteriorly within the canal. Uncovertebral joint hypertrophy mildly narrows the neural foramina on the left and moderately narrows the neural foramina on the right. C6-C7 level, there is a moderate-sized concentric disc osteophytic ridge which indents the ventral margin of thecal sac. There is no neural foraminal narrowing. C7-T1 level, the spinal canal and neural foramen are patent. Assessment 34 y.o. female with neck pain most likely from degenerative disc and facet disease and LUE pain along the C5 dermatome that could be radicular in nature; MRI concordant with patient symptoms. However, shoulder pathology is highly plausible based on PE. A recent left C4-C5 TFESI provided 50% ongoingrelief of symptoms mostly with neck and less with left scapula and shoulder. She has agreed to the following plan. No orders of the defined types were placed in this encounter. Plan: 1. Continue activity as tolerated 2. Return to clinic PRN - if symptoms worsen, consider left C4-C5/C5-C6 facet injections and EMG CC: Dr. Kole Vargas was the attending physician available in the clinic today if needed. A consultation was not required. documented in this encounter Plan of Treatment Not on file documented as of this encounter Visit Diagnoses Diagnosis Neck pain- Primary Cervicalgia documented in this encounter Care Teams Iso Coordinator Relationship Specialty Start Date End Date Addison Sharif MD [address] [address] PCP - General 05/15/15 documented as of this encounter
--- OUTSIDE RECORDS SUMMARY | 2024-09-13 15:13 | XMS_ITS | Encounter Summary ---
Author Organization [facility] Address [address] [place] [address] Care Team Providers Care Manager Mental Health Name Role Phone Addison Sharif MD Primary Care Provider [phone] Encounter Details Date Type Department Care Team (Late st Contact Info) Description 10/21/[address] [address] Addison Sharif MD [address] [facility] [address] [place], [place] [address] Social History Tobacco Use Types Packs/Day Years [...] documented as of this encounter Visit Diagnoses Not on filedocumented in this encounter Historical Medications * This list may reflect changes made after this encounter. albuterol (PROAIR HFA) 90 mcg/actuation inhaler Inhale 180 mcg as directed every 4 hours. estradiol (ESTRACE) 0.5 mg tablet Take 0.5 mg by mouth daily. fexofenadine (JONAH ALLERGY) 180 mg tablet Take 180 mg by mouth daily. beclomethasone (QVAR) 80 mcg/actuation inhaler Inhale 160 mcg as directed 2 times daily. topiramate (TOPAMAX) 25 mg tablet Take 25 mg by mouth daily. 10/27/2017 added in this encounter Care Teams Manager Mental Health Relationship Specialty Start Date End Date Addison Sharif MD [address] [place] [id number] PCP - General 05/15/15 documented as of this encounter
--- OUTSIDE RECORDS SUMMARY | 2024-09-13 15:13 | XMS_ITS | Encounter Summary ---
Author Organization [facility] Address [address] [place] [address] Care Team Providers Care Inventory Administrator Name Role Phone Addison Sharif MD Primary Care Provider [phone] Encounter Details Date Type Department Care Team (Latest Contact Info) Description 11/02/2017 13:40 EST - 11/02/2017 23:59 EST Hospital Encounter [address] [address] Unknown, Provider, Discharge Disposition: Home or Self Care Social [...] 09/05/2015 9:20 EST documented in this encounter Medications at Time of Discharge albuterol (PROAIR HFA) 90 mcg/actuation inhaler Inhale 180 mcg as directed every 4 hours. beclomethasone (QVAR) 80 mcg/actuation inhaler Inhale 160 mcg as directed 2 times daily. buPROPion (WELLBUTRIN XL) 150 mg XL tablet Take 150 mg by mouth daily estradiol (ESTRACE) 0.5 mg tablet Take 0.5 mg by mouth daily. ESTRADIOL, BULK, MISC 2 mg by misc (non-drug; combo route) route fexofenadine (JONAH ALLERGY) 180 mg tablet Take 180 mg by mouth daily. gabapentin (NEURONTIN) 100 mg capsule Take 1 Cap by mouth 3 times daily 90 Cap 2 07/05/2015 TOPIRAMATE (TOPAMAX ORAL) Take by mouth documented as of this encounter Discharge Disposition Disposition Code Departure Means Destination Home or Self Correction documented in this encounter Plan of Treatment Not on file documented as of this encounter Visit Diagnoses Not on filedocumented in this encounter Care Teams Inventory Administrator Relationship Specialty Start Date End Date Addison Sharif MD [address] [address] PCP - General 05/15/15 documented as of this encounter
--- OUTSIDE RECORDS SUMMARY | 2024-09-13 15:13 | XMS_ITS | Encounter Summary ---
Author Organization [facility] Address [address] [place] [address] Care Team Providers Care Computer Bookkeeper Name Role Phone Marco Parish MD Primary Care Provider [phone] Addison Sharif MD Primary Care Provider [phone] Encounter Details Date Type Department Care Team (Late st Contact Info) Description 05/10/2012 Historical Results Only [facility] - Main [address] [address] Rufus Singh MD [address] [place] [phone] Social History Tobacco Use Types Packs/Day Years [...] Procedure Name Priority Date/Time Associated Diagnosis Comments PAP TEST Routine 05/10/2012 documented in this encounter Results * PAP TEST (05/10/2012) 05/10/2012 05/10/2012 20: 54 EDT Narrative [facility] - 05/13/2012 10:48 EDT ----- ------- Name: JENNIE CARLINFER ? : [birth year] ?Age/Sex: 38/F ?Unit#: [id number] ? Loc: LAB.OPX ? Status: REG REF ?? Reg Date: 05/10/12 ? Pt.Phone Number: ? ----- ------- Specimen: [id number] ?STATUS: SOUT ?Spec Date:05/10/12 ? Physician Copies: ?Rufus Singh J Tissues: ? VAGINAL PAP ? CPT: 77640 ?? Units: ??1 ----- ------- ? CYTOLOGY DIAGNOSIS SPECIMEN ADEQUACY: ??Satisfactory for evaluation. Assessment of transformation zone not applicable (e.g. ??atrophy, vaginal sample, hysterectomy). GENERAL CATEGORIZATION: ?Negative for Intraepithelial Lesion or Malignancy DESCRIPTIVE DIAGNOSIS: ? Negative for Intraepithelial Lesion or Malignancy. RECOMMENDATIONS/COMMENTS: ?None. ----- ------- ORDER QUERIES: LMP: ? - HYST ? Post ?PREVIOUS ATYPICAL: Y BCP/HRT? Y Rad Rx? ?? IUD?PAP PLUS HPV? N ??REFLEX TO HR-HPV IF ASCUS ?? REFLEX TO HPV 16/18 IF HPV POS/PAP NEG ?? HPV REGARDLESS?RFLX HPV IF LSIL ?? IF ASCUS DO HPV? N Signed Sariah Finn CT(ASCP) 05/13/12 By the signature above, the attending physician certifies that he/she has personally conducted a gross and/or microscopic examination of the described specimens and rendered or confirmed the above diagnosis. Test Performed by [facility], [address] [address] [place] Assistant: Carlita Olvera MD PHD ----- ------- Rufus Singh MD PATHOLOGY ORDERABLES Final Result [facility] documented in this encounter Visit Diagnoses Not on filedocumented in this encounter Care Teams Computer Bookkeeper Relationship Specialty Start Date End Date Marco Parish MD [address] [place] [address] PCP - General 02/26/09 05/14/15 Addison Sharif MD [address] [place] [id number] PCP - General 05/15/15 documented as of this encounter
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
--- OUTSIDE RECORDS SUMMARY | 2024-09-13 15:13 | XMS_ITS | Encounter Summary ---
Author Organization [facility] Address [address] [place] [address] Care Team Providers Care Mining And Quarrying Machinery Repairer Name Role Phone Addison Sharif MD Primary Care Provider [phone] Reason for Visit * Reason Comments Neck Pain left sided neck pain Shoulder Pain left shoulder pain * Consult (Routine) - Specialty Report Received Specialty Diagnoses / Procedures Referred By Ellis soni Referred To Contact Pain Medicine Diagnoses Neck pain Chaya Helms PA-C Phone: tel: fax: [facility] [address] [place] [address] Phone: tel: fax: Referral ID Status Reason Start Date Expiration Date Visits Requested Visits Authorized [id number] Specialty Report Received Specialty Services Required 07/05/2015 1 1 Encounter Details Date Type Department Care Team (Latest Contact Info) Description 09/05/2015 9:15 EST Office Visit [facility] [address] [place] [address] Elisabeth Leung MD [facility] [place] [address] Cervical radiculopathy (Primary Dx); Degenerative, intervertebral disc, cervical Social History Tobacco Use Types Packs/Day Years [...] Sign Reading Time Taken Comments Blood Pressure 120/79 09/05/2015 1012 EST Pulse 79 09/05/2015 1012 EST Temperature 35.8 ??C (96.5 ??F) 09/05/2015 0918 EST Respiratory Rate 16 09/05/2015 1012 EST Oxygen Saturation - - Inhaled Oxygen Concentration - - Weight 74.8 kg (165 lb) 09/05/2015 0918 EST Height 165.1 cm (5' 5) 09/05/2015 0918 EST Body Mass Index 27.46 09/05/2015 0918 EST documented in this encounter Functional Status [...] 9:20 EST documented in this encounter Discharge Diagnoses Diagnosis M54.12 Radiculopathy, cervical region-M54.12[ICD-10-CM] documented in this encounter Patient Instructions * Patient Instructions* Alexa Nix RN - 09/05/2015 9:53 EST [facility] [address] [address] Patient Instructions You have had your left cervical Transforaminal Epidural Steroid Injection. The purpose of this procedure has been to place medication which may help relieve your pain. Steroid may be used to decreasethe swelling and nerve irritation which may be causing your pain. The following information should help you over the next few days regarding what you may expect. Today please stay busy/active doing things that would normally cause you pain. Keep track of your hours of relief and your percentage of relief today (0 to 100 , 0 = no relief and 100% being total relief). Separate the pressure and tightness that we caused you from your regular pain and see what your relief is. Call us back tomorrow with this information. Procedure end time: 10:05 Pain relief start time Returned to baseline pain ??? DO NOT drive a car for the remainder of the day. ??? If you feel sore where the needle(s) entered for the block or develop a flare-up of pain over the next few days, please use ice on the area. You may leave the ice on for up to 20 minutes at a time. Do not use heat, as this may cause swelling. ??? As long as your primary doctor has indicated no restrictions, you may take a mild pain medicine, such as acetaminophen (Tylenol), ibuprofen (Advil, Nuprin, Motrin IB, etc.) or aspirin, if needed. ??? The steroid injection usually takes a few days to become effective. On average, you may notice some relief in 3 -5 days. However, it may take up to 10 - 14 days to know whether the injection was helpful. ??? If the block causes numbness/weakness, it should wear off within a few hours. ??? If the area that the needle(s) were inserted becomes hot, red, swollen, or increasingly tender,or if you develop a fever (100.5 or greater) or chills along with these symptoms, please call our office immediately. ??? If you develop increasingly severe neck/back pain, continued numbness or weakness of the arms/legs or changes in your bladder or bowel functions, please call our office immediately. Instructions for follow-up If you have any questions about your block, please call Patient Education Topic: Method: Handout and Verbal Taught to: Patient Barriers: None Outcomes: independent and verbalized understanding Signature: ALEXA NIX RN documented in this encounter Progress Notes * Elisabeth Leung MD - 09/05/2015 0925 EST Patient Name: Aylin Carlin : 1980 Date of Service: 09/05/2015 Genetic Counselor: Elisabeth Leung MD Solar Project Engineer: none Interval History: Ms. Carlin presents at the request of Chaya Helms for evaluation and treatment of her chronic left neck pain, arm pain and shoulder pain. The details of the current complaint are thoroughly described in the consultation notes from their last encounter including pain onset, location, course, workup, therapeutic attempts, and associated functional limitations. The patient reports no recent changes in the character, quality, or distribution of the pain. There are no recent onset of new associated symptoms such as changes in strength, sensation, or bladder control. Her pain began in Nov 2014 after a work related event. Her pain continues to be in her left neck radiating down towards her shoulder, rhomboids, and left bicep. Any movement of her shoulder exacerbates her neida;n She cannot reach overhead. She is diffusely tender throughout her left lower cervical region, trapezius, rhomboid, and shoulder region. She had a shoulder injection this summer without any benefit. She has tried PT as well without any relief. C spine MRI: At the C3-C4 level, there is a prominent, concentric disc osteophytic ridge which when coupled with hypertrophy ligamentum flavum result in effacement of the CSF both ventral and dorsal to the cord and cord impingement. Uncovertebral joint facet hypertrophy results in severe right and moderate left neural foraminal narrowing. At the C4-C5 level, there is a small, concentric disc osteophytic ridge mildly indents the ventral margin of thecal sac. Uncovertebral joint and facet hypertrophy results in moderate left neural foraminal narrowing. The right neural foramen is patent. At the C5-C6 level, a prominent, concentric disc ossific ridge indents the ventral margin of thecal sac and specifically posteriorly within the canal. Uncovertebral joint hypertrophy mildly narrows the neural foramina on the left and moderately narrows the neural foramina on the right. At the C6-C7 level, there is a moderate-sized concentric disc osteophytic ridge which indents the ventral margin of thecal sac. There is no neural foraminal narrowing. At the C7-T1 level, the spinal canal and neural foramen are patent. Allergies Allergen Reactions ??? Codeine ??? Vicodin [Hydrocodone-Acetaminophen] ROS: CONSTITUTIONAL: Patient does not report fevers, nausea, vomiting. NEURO/EYES: Patient does not report headaches, dizziness, or visual changes. HEME: Patient does not report any known coagulopathies. PULM/CARDIAC: Patient does not report shortness of breath or chest pain. GI/: Patient does not report bowel or bladder incontinence. Physical Examination: Vital signs: Blood pressure 118/83, pulse 84, temperature 35.8 ??C (96.5 ??F), temperature source Tympanic, resp. rate 16, height 165.1 cm (65), weight 74.844 kg (165 lb). GENERAL: Patient is an otherwise pleasant female. Patient is alert and oriented x 3. Appropriate inconversation. NAD. The patient does appear her stated age of 34 y.o.. The pain syndrome is clinically relayed without embellishment. she rises from a seated position without difficulty. SKIN: WNL. Warm and dry. No lesions, apparent rashes, bruising or petechiae. No signs of infection in the cervical region. NEURO: CN II-XII are grossly intact. Motor strength is 5/5 throughout all motor groups in bilateral upper extremities. Sensation is intact and symmetrical to light touch throughout bilateral upper extremities. neg Spurlings test. SLR. EXTREMITIES: No clubbing, cyanosis, or edema. MUSCULOSKELETAL: ROM was limited with flexion, extension and lateral rotation. positive Facet loading maneuvers with extension of cervical spine. Diffusely tender to palpation of left cervical region, trapezius, rhomboid, and shoulder PULM: Non labored breathing. Assessment:Patient is a 34 y.o. year old female with a chronic pain syndrome and a primary complaint of left neck pain, arm pain and shoulder pain. This pain has not responded to conservative/interventional therapy. Associated diagnoses: Encounter Diagnoses Name Primary? Cervical radiculopathy Yes ??? Degenerative, intervertebral disc, cervical Plan: Proceed with transforaminal epidural steroid injection at left C4-C5 Follow up as needed for further evaluation and within 24 hrs by telephone to report results of diagnostic injection She will follow up with Grig Delaportas post injection PROCEDURE: The patient gave informed written consent to proceed with this procedure following a detailed discussion of the risks and benefits associated with transforaminal epidural steroid injection in the cervical spine. The patient was then placed in the supine position, the skin over the neck was prepped broadly with chlorhexadine, and the site was draped with sterile towels. Strict sterile technique was maintained throughout the procedure. A lozano moment was performed with full staff present to identify the patient, verify the procedure being performed, and review allergies. Fluoroscopy was used to visualize the left C4-C5 neuroforamen. Craniocaudal and oblique angulationswere required to align the foramen and superimpose the borders of the posterior pillars. The skin and subcutaneous tissue over this level was anesthetized by injection of 2% lidocaine. A 25 guage 2.5inch short bevel needle was inserted under fluoroscopic guidance using coaxial technique. The needle was slowly advanced by anterolateral approach until the superior articulating process in the distal-posterior aspect of foramen was contacted. The needle was then redirected and advanced medially slowly advanced into the distal foramen. No parasthesias occurred during needle insertion and aspiration was negative. Additional fluoroscopic images in the AP and lateral views were taken to confirm final needle tip position in the distal foramen. Contrast dye was injected under live fluoroscopy withdigital subtraction which revealed good spread along the Lt C5 nerve root with no evidence of intravascular or intrathecal injection. After negative aspiration, 10 mg Dexamethasone and 0.5 ml 2% Lidocaine were injected. The needle was then flushed and withdrawn. The patient tolerated the procedure well, there were no apparent complications, and she was discharged in stable condition. Written and verbal discharge instructions were reviewed with the patient prior to discharge. Elisabeth Leung MD * Nereyda Banks Sariah - 09/05/2015 0924 EST [facility] Rooming Note Does patient have a Ship Keeper? yes Is patient NPO? (Solids since midnight & liquids for 4 hrs) yes Blood Thinners: Is patient on Blood Thinners? no If yes, taking? If stopped, who authorized stopping? Related comments: Infections: Any recent infections, fever of illnesses? no If on antibiotics, is it 7-10 days past the date of completion of antibiotics? no : (for females of child-bearing age) Is there a chance current ? no Other: documented in this encounter Plan of Treatment Not on file documented as of this encounter Visit Diagnoses Diagnosis Cervical radiculopathy- Primary Brachial neuritis or radiculitis nos Degenerative, intervertebral disc, cervical Degeneration of cervical intervertebral disc documented in this encounter Administered Medications Inactive Administered Medications - up to 3 most recent administrations Medication Order MAR Action Action Date Dose Rate Site dexaMETHasone (DECADRON) injection 10 mg 10 mg, neural-axial, NOW X1, 1 dose, On Thu09/05/15 at 1015, Routine Given by Other 09/05/2015 9:59 EST 10 mg documented in this encounter Orders Medications Ordered That Darrell ht Not Have Been Administered Count Last Ordered Date First Ordered Date dexaMETHasone (DECADRON) injection 10 mg 1 09/05/2015 documented in this encounter Care Teams Mining And Quarrying Machinery Repairer Relationship Specialty Start Date End Date Addison Sharif MD [address] [place] [id number] PCP - General 05/15/15 documented as of this encounter
--- OUTSIDE RECORDS SUMMARY | 2024-09-13 15:13 | XMS_ITS | Encounter Summary ---
Author Organization [facility] Address [address] [place] [address] Care Team Providers Care Wedding Transportation Driver Name Role Phone Addison Sharif MD Primary Care Provider [phone] Encounter Details Date Type Department Care Team (Late st Contact Info) Description 05/15/2015 17:40 EDT - 05/15/2015 23:59 EDT Hospital Encounter [facility] [address] [place] [address] Beto Santoyo MD [address] [place] [phone] Discharge Disposition: Home or Self Care Social History Tobacco Use Types Packs/Day Years Used Date Smoking Tobacco: Never Assessed Comments Unknown Sex and Gender Information Value Date Recorded Sex Assigned at Not on file Legal Sex Female 17:36 EST Gender Identity Not on file Sexual Orientation Not on file documented as of this encounter Discharge Diagnoses Diagnosis V72.5 RADIOLOGICAL EXAM NEC[ICD-9-CM] documented in this encounter Discharge Disposition Disposition Code Departure Means Destination Home or Self Skilled Nursing documented in this encounter Plan of Treatment Not on file documented as of this encounter Visit Diagnoses Not on filedocumented in this encounter Care Teams Wedding Transportation Driver Relationship Specialty Start Date End Date Addison Sharif MD [address] [facility] [address] [place] [address] PCP - General 05/15/15 documented as of this encounter
--- OUTSIDE RECORDS SUMMARY | 2024-09-13 15:13 | XMS_ITS | Encounter Summary ---
Author Organization [facility] Address [address] [place] [address] Care Team Providers Care Pigment Pusher Name Role Phone Addison Sharif MD Primary Care Provider [phone] Reason for Visit * Reason Onset Date Comments Appointment Related 08/02/2015 Encounter Details Date Type Department Care Team (Late st Contact Info) Description 08/02/2015 Telephone [facility] [address] [place], [place] [id number] Vadim Reveles MD [address] [place] [phone] Appointment Related Social History Tobacco Use Types Packs/Day Years [...] on file documented as of this encounter Miscellaneous Notes * Telephone Encounter - Aylin Mcclure - 08/02/2015 0928 EDT Pt rescheduled for 09/05/15 * Telephone Encounter - Oneyda Mo RN - 08/02/2015 0902 EDT Returned call to patient, she states she went to the doctor's yesterday for her cold and chest congestion, she states she does not have a sinus infection. She does have a productive cough and agreed to reschedule her injection for at least ten days with /Jase. * Telephone Encounter - Aylin Mcclure - 08/02/2015 0836 EDT Pt has a left c4-c5 tfesi scheduled for tomorrow. She has a chest cold and is coughing. She wants to know if she can still have procedure tomorrow documented in this encounter Plan of Treatment Not on file documented as of this encounter Visit Diagnoses Not on filedocumented in this encounter Care Teams Pigment Pusher Relationship Specialty Start Date End Date Addison Sharif MD [address] [place] [id number] PCP - General 05/15/15 documented as of this encounter
--- OUTSIDE RECORDS SUMMARY | 2024-09-13 15:13 | XMS_ITS | Clinical Summary ---
Author Organization [facility] Address [address] [place] [address] Care Team Providers Care Mold Maker Plastic Molds Name Role Phone Addison Sharif MD Primary Care Provider Allergies Active Allergy Reactions Criticality Noted Date Comments Codeine 07/05/2015 Hydrocodone-Acetaminophen 07/05/2015 Medications buPROPion (WELLBUTRIN XL) 150 mg XL tablet Take 150 mg by mouth daily Active TOPIRAMATE (TOPAMAX ORAL) Take by mouth A ctive ESTRADIOL, BULK, MISC 2 mg by misc (non-drug; combo route) route Active gabapentin (NEURONTIN) 100 mg capsule Take 1 Cap by mouth 3 times daily 90 Cap 2 07/05/2015 Active beclomethasone (QVAR) 80 mcg/actuation inhaler Inhale 160 mcg as directed 2 times daily. Active fexofenadine (JONAH ALLERGY) 180 mg tablet Take 180 mg by mouth daily. Active estradiol (ESTRACE) 0.5 mg tablet Take 0.5 mg by mouth daily. Active albuterol (PROAIR HFA) 90 mcg/actuation inhaler Inhale 180 mcg as directed every 4 hours. Active VENLAFAXINE HCL (EFFEXOR XR ORAL) Take by mouth. Active Active Problems Problem Noted Date Diagnosed Date Bilateral chronic serous otitis media 10/27/2017 Conductive hearing loss, bilateral 10/27/2017 Neck pain 07/05/2015 Surgical History Surgery Date Site/Laterality Comments APPENDECTOMY SECTION CHOLECYSTECTOMY NOSE SURGERY THROAT SURGERY HYSTERECTOMY CARPAL TUNNEL RELEASE Bilateral TYMPANOSTOMY TUBE PLACEMENT Medical History Medical History Date Comments Asthma Depression GERD (gastroesophageal reflux disease) Bowel disease Environmental allergies Migraines Sleep apnea Family History Medical History Relation Comments Cancer Father Diabetes Father Asthma Mother Diabetes Mother High Blood Pressure Mother High Cholesterol Mother Migraines Mother Bleeding Problem Other Relation Status Comments Father Mother Alive Other Social History Tobacco Use Types Packs/Day Years [...] on file Sexual Orientation Not on file Obstetrics History Last Filed Vital Signs Vital Sign Reading Time Taken Comments Blood Pressure 126/87 10/27/2017 1031 EST Pulse 92 10/27/2017 1031 EST Temperature 35.8 ??C (96.5 ??F) 09/05/2015 0918 EST Respiratory Rate 16 09/05/2015 1012 EST Oxygen Saturation - - Inhaled Oxygen Concentration - - Weight 99.8 kg (220 lb) 10/27/2017 1031 EST Height 165.1 cm (5' 5) 10/27/2017 1031 EST Body Mass Index 36.61 10/27/2017 1031 EST Plan of Treatment Health Maintenance Due Date Last Done Comments Hepatitis C Screen 1980 Pneumococcal Immunization (1 of 2 - PCV) 1984 Hepatitis B Vaccine (1 of 3 - 19+ 3-dose series) 12/21 COVID-19 Vaccine ( season) 2024 Insurance MEDICAID [place] Care Teams Mold Maker Plastic Molds Relationship Specialty Start Date End Date Addison Sharif MD [address] [place] [id number] PCP - General 05/15/15
--- OUTSIDE RECORDS SUMMARY | 2024-09-13 15:13 | XMS_ITS | Encounter Summary ---
Author Organization [facility] Address [address] [place] [address] Care Team Providers Care Plastic Installer Name Role Phone Addison Sharif MD Primary Care Provider [phone] Reason for Referral * Consult (Routine) - Specialty Report Received Specialty Diagnoses / Procedures [facility] Referred To Contact Pain Medicine Diagnoses Neck pain Chaya Helms PA-C Phone: tel: fax: [facility] Interventional Pain [address] [place] [address] Phone: tel: fax: Referral ID Status Reason Start Date Expiration Date Visits Requested Visits Authorized [id number] Specialty Report Received Specialty Services Required 07/05/2015 1 1 Question Answer Reason for Request: neck pain Comments Recommend LEFT C4-C5 TFESI Reason for Visit * Reason Comments Neck Pain left arm pain Encounter Details Date Type Department Care Team (Late st Contact Info) Description 07/05/2015 15:15 EDT Office Visit [facility] - [facility] [address] [place] [address] Chaya Helms PA-C [address] [facility] [place] [address] Neck pain (Primary Dx) Discharge Disposition: Auto Discharge Social History Tobacco [...] Sign Reading Time Taken Comments Blood Pressure - - Pulse - - Temperature - - Respiratory Rate - - Oxygen Saturation - - Inhaled Oxygen Concentration - - Weight 65.8 kg (145 lb) 07/05/2015 1516 EDT Height 165.1 cm (5' 5) 07/05/2015 1516 EDT Body Mass Index 24.13 07/05/2015 1516 EDT documented in this encounter Discharge Diagnoses Diagnosis 723.1 CERVICALGIA[ICD-9-CM] documented in this encounter Ordered Prescriptions Prescription Sig Dispense Quantity Refills Last Filled Start Date End Date gabapentin (NEURONTIN) 100 mg capsule Take 1 Cap by mouth 3 times daily 90 Cap 2 07/05/2015 documented in this encounter Discharge Disposition Disposition Code Departure Means Destination Auto Discharge documented in this encounter Progress Notes * Chaya Helms PA - 07/05/2015 1526 EDT Aylin Carlin is being seen as a consultation from Dr. Santoyo. Chief Complaint Patient presents with ??? Neck Pain left arm pain The encounter diagnosis was Neck pain. HPI Ms. Carlin is a 34 y.o. pleasant female who presents to the clinic today with 100% left-sided neckpain radiating into the left shoulder and medial aspect of her left shoulder blade. The patient reports acute onset of symptoms that started as a result of a work related injury that took place in December 03, 2014. She threw a 50-lb bag of garbage over her head and into the dumpster. She has not improved significantly since then. Symptoms wax and wane. She has tried PT for two months, but she didnot get any relief of symptoms. She had trigger point injections, which made her worse. She has nottried CHIRO. Application of heat alleviate her symptoms the most. Moving in general aggravate her symptoms. She rates her pain as 7/10. This is a W/C related visit. She has not been working since May 23, 2015. She is on worker's comp disability. HPI Patient Active Problem List Diagnosis ??? Neck pain History reviewed. No pertinent past medical history. Past Surgical History Procedure Laterality Date ??? Appendectomy ??? section ??? Cholecystectomy ??? Nose surgery ??? Throat surgery ??? Hysterectomy ??? Carpal tunnel release Bilateral History Substance Use Topics ??? Smoking status: Current Every Day Smoker -- 0.25 packs/day for 15 years ??? Smokeless tobacco: Not on file ??? Alcohol Use: No History reviewed. No pertinent family history. Current Outpatient Prescriptions Medication Sig Dispense Refill [...] Codeine ??? Vicodin [Hydrocodone-Acetaminophen] Review of Systems Constitutional: Positive for activity change. Negative for unexpected weight change. Eyes: Negative for visual disturbance. Respiratory: Negative for chest tightness. Cardiovascular: Negative for chest pain. Gastrointestinal: Negative for constipation. Genitourinary: Negative for difficulty urinating. Musculoskeletal: Positive for neck pain. Negative for back pain. Skin: Negative for rash. Neurological: Negative for numbness. Psychiatric/Behavioral: Negative for behavioral problems and agitation. Physical Exam Constitutional: She is oriented to person, place, and time. She appears well- developed and well-nourished. HENT: Head: Normocephalic and atraumatic. Eyes: EOM are normal. Cardiovascular: Normal rate. Pulmonary/Chest: Effort normal. Neurological: She is alert and oriented to person, place, and time. Skin: Skin is warm and dry. No rash noted. Psychiatric: She has a normal mood and affect. Her behavior is normal. Back Exam Comments: RASHES AND JOSE EDUARDO: NEG. FROM: TENDERNESS ON PALPATION: NEG. STRENGTH: 5/5. REFLEXES: 2/4. SENSATION: Intact. SPURLING'S: NEG. MCDANIELS: NEG. RADIAL PULSE: 2/2. TINNEL: NEG. PHALEN: NEG. ULNARCOMPRESSION: NEG. Neurologic Exam Mental Status Oriented to person, place, and time. Cranial Nerves CN III, IV, Extraocular motions are normal. Today, 07/05/2015, I ordered plain radiographs and I independently reviewed the following: Plain radiographs [...] pathology is highly plausible based on PE. We will rule out C5 radiculitis with a left E6PCQVI and EMG if necessary. She has agreed to the following plan. Other Orders Placed This Visit Procedures ??? Amb Consult/Follow Up Pain Interventional Plan: 1. Order LEFT C4-C5 TFESI 2. Gabapentin 100 mg TID 3. Return to clinic post TFESI 4. If no relief from C4-C5 TFESI, proceed with EMG and then referral to UE if EMG negative CC: Dr. Yarelis Haywood was the attending physician available in the clinic today if needed. A consultation was not required. documented in this encounter Plan of Treatment Scheduled Referrals Name Type Priority Associated Diagnoses Order Schedule AMB CONS/FOLLOW UP PAIN INTERVENTIONAL Outpatient Referral Routine Neck pain Ordered: 07/05/2015 documented as of this encounter Visit Diagnoses Diagnosis Neck pain- Primary Cervicalgia documented in this encounter Historical Medications * This list may reflect changes made after this encounter. ESTRADIOL, BULK, MISC 2 mg by misc (non-drug; combo route) route TOPIRAMATE (TOPAMAX ORAL) Take by mouth buPROPion (WELLBUTRIN XL) 150 mg XL tablet Take 150 mg by mouth daily FEXOFENADINE HCL (JONAH ORAL) Take 180 mg by mouth 10/27/2017 added in this encounter Care Teams Plastic Installer Relationship Specialty Start Date End Date Addison Sharif MD [address] [address] PCP - General 05/15/15 documented as of this encounter
--- OUTSIDE RECORDS SUMMARY | 2024-09-13 15:13 | XMS_ITS | Encounter Summary ---
Author Organization [facility] Address [address] [place] [address] Care Team Providers Care Truck Driver Name Role Phone Marco Parish MD Primary Care Provider [phone] Encounter Details Date Type Department Care Team (Late st Contact Info) Description 12/07/2008 Before PRISM Converted Visit (Maple) [facility] - Maple conversion [address] [place] [address] Geraldine Lindquist, DAISY[address] [place] [address] Social History Tobacco Use Types Packs/Day Years [...] Comments HPV DETECTION, HIGH RISK TYPES Routine 12/07/2008 17:53 EST CYTOPATHOLOGY Routine 12/07/2008 0:00 EST documented in this encounter Results * HUMAN PAPILLOMA VIRUS DNA TEST (12/07/2008 17:53 EST) Specimen Description Cervix, ThinPrep vial [facility] Result Negative for HPV types 16, 18, 31, 33, 35, 39, 45, 51, 52, 56, 58, 59, and 68. [facility] Report Status Final 2008 [facility] 12/07/2008 17:5 3 EST 12/15/2008 7:42 EST us Geraldine Lindquist CNM MICROBIOLOGY - GENERAL ORDERA BLES Final Result [facility] [address] [place] [address] * CYTOPATHOLOGY (12/07/2008 0:00 EST) Pathology Report: CYTOPATHOLOGY REPORT ? Reports generated via electronic interface contain original data; ? however they are lacking the format of the original report. ? Caution should be taken when reading/interpreti ng unformatted reports. ? Name: ? GIDEON CARLIN ? Accession #: ? [id number] ? : ? 1980 (Age: 27) ??F ?Collect Date: ? 12/07/2008 ? Location: ? [facility] ? Receive Date: ? 12/08/2008 ? Provider: ?GERALDINE DMITRY CNM ? Copy to: ? Specimen/Source: ?Pap Test, Cervix/Endocervix, ThinPrep Imaging System ? with manual evaluation ? Last Menstrual Period: ? 1/09 ? Previous Gynecologic Pathology: ? Yes: Abnormal pap many years ago ? Other: ? HPVDX - HPV testing requested regardless of diagnosis on current ThinPrep Pap ?? test. ? SPECIMEN ADEQUACY ? Satisfactory for Evaluation ? - transformation zone component present ? GENERAL CATEGORIZATION ? Negative for Intraepithelial Lesion or Malignancy ? Document reviewed and electronically signed by: ? Amy Seven, CT(ASCP) ? Report Date: ??12/14/2008 08:06 ? End of Report ? [facility] 12/07/2008 12/08/2008 Geraldine VILLAM PATHOLOGY ORDERABLES Final Re sult [facility] [address] [place] [address] documented in this encounter Visit Diagnoses Not on filedocumented in this encounter Care Teams Truck Driver Relationship Specialty Start Date End Date Marco Parish MD [address] [place] [address] PCP - General 02/26/09 05/14/15 documented as of this encounter
--- OUTSIDE RECORDS SUMMARY | 2024-09-13 15:13 | XMS_ITS | Encounter Summary ---
Author Organization [facility] Address [address] [place] [address] Care Team Providers Care Desktop Support Specialist Name Role Phone Addison Sharif MD Primary Care Provider [phone] Reason for Visit * Reason Onset Date Comments Follow-up 09/05/2015 Left Cervical TF ABIGAIL Other Encounter Details Date Type Department Care Team (Late st Contact Info) Description 09/05/2015 Telephone [facility] Interventional Pain [address] [place] [address] Alexa Nix RN Follow-up (Left Cervical TFESI); Social History Tobacco Use Types Packs/Day Years [...] 09/05/2015 9:20 EST documented in this encounter Miscellaneous Notes * Telephone Encounter - Clarisa Lai - 09/07/2015 1521 EST Procedure end time: 1005AM Pain relief start time Returned to baseline pain Hours of relief 8 hours Percentage of relief 0-100 (0 = no relief, 100 = total relief) ___40% * Telephone Encounter - Tyler Chen RN - 09/07/2015 1419 EST RN called patient for hours and % of relief day of injection. Left a message to call with this info. Date and type of procedure:09/06/15 transforaminal epidural steroid injection at left C4-C5 Provider:Xochitl Hours of relief: 8 hours % of relief:40% Next appointment: Plan: Proceed with transforaminal epidural steroid injection at left C4-C5 Follow up as needed for further evaluation and within 24 hrs by telephone to report results of diagnostic injection She will follow up with Juan Helms post injection RN called patient and she confirms that 40% was the best relief she had and she will call Jennifer Helms office in 2 weeks with her % of relief. * Telephone Encounter - Alexa Nix RN - 09/05/2015 1301 EST Diagnostic CTFESI documented in this encounter Plan of Treatment Not on file documented as of this encounter Visit Diagnoses Not on filedocumented in this encounter Care Teams Desktop Support Specialist Relationship Specialty Start Date End Date Addison Sharif MD [address] [place] [id number] PCP - General 05/15/15 documented as of this encounter
--- OUTSIDE RECORDS SUMMARY | 2024-09-13 15:13 | XMS_ITS | Referral Summary ---
Author Organization [facility] Address [address] [place] [address] Care Team Providers Care Revenue Research Analyst Name Role Phone Addison Sharif MD Primary Care Provider [phone] Allergies Active Allergy Reactions Criticality Noted Date [...] hearing loss, bilateral 10/27/2017 Neck pain 07/05/2015 Social History Tobacco Use Types Packs/Day Years [...] on file Sexual Orientation Not on file Last Filed Vital Signs Vital Sign Reading [...] Body Mass Index 36.61 10/27/2017 1031 EST Functional Status * Because of a physical, mental, or emotional condition, does this person have difficulty doing errands alone such as visiting a doctor's office or shopping? Answer Date of Assessment Author No 09/05/2015 9:20 EST Mental Status * Because of a physical, mental, or emotional condition, does this person have serious difficulty concentrating, remembering, or making decisions? Answer Entry Date Author No 09/05/2015 9:20 EST Plan of Treatment Not on file Insurance [place]ICAID [place] Care Teams Revenue Research Analyst Relationship Specialty Start Date End Date Addison Sharif MD [address] [place] [address] PCP - General 7/21/15
--- OUTSIDE RECORDS SUMMARY | 2024-09-13 15:13 | XMS_ITS | Encounter Summary ---
Author Organization [facility] Address [address] [place] [address] Care Team Providers Care Needle Valve Operator Name Role Phone Unavailable Primary Care Provider Unavailabl e Encounter Details Date Type Department Care Team (Late st Contact Info) Description 07/07/2007 21:28 EDT - 07/09/2007 11:59 EDT Hospital Encounter [facility] Mother/Baby Unit [address] [place] [address] Alessia Nesbitt MD [address] [facility], [facility] [address] [place] [phone] Discharge Disposition: Home or Self Care Social History Tobacco Use Types Packs/Day Years Used Date Smoking Tobacco: Never Assessed Comments Unknown Sex and Gender Information Value Date Recorded Sex Assigned at Not on file Legal Sex Female 17:36 EST Gender Identity Not on file Sexual Orientation Not on file documented as of this encounter Discharge Summaries * Mona Betancourt - 07/09/2007 0000 EDT DISCHARGE SUMMARY Admission Date: 07/07/2007 Discharge Date: 07/09/2007 ADMISSION DIAGNOSIS uterine activity. DISCHARGE DIAGNOSIS uterine activity. HISTORY OF PRESENT ILLNESS The patient is a 26-year-old G3, P1-1-0-2 who presented with a at 31+0 weeks estimated gestational age. She was a transport from [facility] who was having painful contractions every 3-4 minutes. She had previously been admitted to [facility] on July 03 through July 05, 2007, for labor. At this point, she received a full course of betamethasone and 48 hours of tocolysis and treatment with Indocin. She was discharged on July 05, 2007. HOSPITAL COURSE On July 07, 2007, Ms. Carlin re-presented to [facility]. On presentation, hercervical exam was unchanged with 1.5 cm dilation, 2 cm effacement. She was not chaim and thuswas not placed on tocolytics as she had previously received steroids as well. She did not begin to contract throughout her admission. On July 09, 2007, the decision was made to discharge her. Inaddition, she has a history of iron-deficiency anemia and she was continued on iron throughout her stay. The baby was also evaluated biweekly nonstress tests. DISPOSITION Home. DISCHARGE CONDITION Stable. DISCHARGE INSTRUCTIONS 1. She was instructed to continue her iron supplements. 2. She is to follow up with her outside provider on July 12, 2007, and to continue with bedrest at home. 3. She was instructed to call with any leaking of fluid, any vaginal bleeding, or any increased contractions that were not resolving. Supervising Physician Signed by Alessia Nesbitt MD 08/02/2007 11:07 Mona Betancourt MD Alessia Nesbitt MD - MD Asia A - SB Job ID: [id number] Document ID: [id number] cc: MD Shoaib Vasquez MD Jessica Veltkamp, MD cc: MD Shoaib Vasquez MD Jessica Veltkamp, MD Elisabeth Wegner, MD documented in this encounter Discharge Disposition Disposition Code Departure Means Destination Home or Self Care documented in this encounter Plan of Treatment Not on file documented as of this encounter Procedures Procedure Name Priority Date/Time Associated Diagnosis Comments COMPLETE BLOOD COUNT Routine 07/08/2007 0:45 EDT URINALYSIS WITH MICROSCOPIC IF POSITIVE Routine 07/07/2007 21:52 EDT UA REFLEX Routine 07/07/2007 21:52 EDT URINE CULTURE IF POSITIVE Routine 07/07/2007 21:52 EDT documented in this encounter Results * (ABNORMAL) HEMAGRAM (07/08/2007 0:45 EDT) WBC 12.35 4.0 - 12.4 K/cmm [facility] RBC 3.03(L) 3.86 - 5.04 M/cmm [facility] Hemoglobin 9.2(L) 11.6 - 15.2 gm/dl [facility] HCT 27.0(L) 34.9 - 44.4 % [facility] MCV 89 81 - 98 fl [facility] MCH 30.3 26.7 - 33.3 pg [facility] MCHC 34.1 32.1 - 35.9 gm/dl [facility] PLT 271 141 - 320 K/cmm [facility] RDW-CV 13.3 11.7 - 14.6 % [facility] 07/08/2007 0:45 EDT 07/08/2007 0:59 EDT Alessia Nesbitt MD HEMATOLOGY & PF4 ORDERABLE S Final Result [facility] [address] [place] [address] * UA REFLEX (07/07/2007 21:52 EDT) UA Billing Microscopic not indicated. [facility] 07/07/2007 21:5 2 EDT 07/07/2007 21:54 EDT Alessia Nesbitt MD URINALYSIS ORDERABLES Rebecca l Result Performing Organization Address City/[facility]/ZIP Co de Phone Number [facility] [address] [place] [address] * URINALYSIS (07/07/2007 21:52 EDT) Color, UA Yellow [facility] Clarity, UA Clear [facility] Glucose, UA Norm NORM [facility] Bilirubin, UA Neg NEG [facility] Ketones, UA Neg NEG [facility] Specific [place], Urine 1.020 1.005 - 1.02 [facility] Blood, UA Neg NEG [facility] pH, UA 6.0 5.0 - 9.0 [facility] Protein, UA Neg NEG [facility] Urobilinogen, UA Norm NORM mg/dL [facility] Nitrite, UA Neg NEG [facility] Leuk Esterase Neg NEG [facility] 07/07/2007 21:5 2 EDT 07/07/2007 21:54 EDT us Alessia Nesbitt MD URINALYSIS ORDERABLES Rebecca l Result Performing Organization Address [facility] Co de Phone Number [facility] [address] [place] [address] * CULTURE IF UA POSITIVE (07/07/2007 21:52 EDT) Culture if Indicated Culture not indicated by urinalysis results. [facility] 07/07/2007 21:5 2 EDT 07/07/2007 21:54 EDT Alessia Nesbitt MD MICROBIOLOGY - GENERAL ORD ERABLES Final Result Performing Organization Address City/[facility]/ZIP Co de Phone Number [facility] [address] [place] [address] documented in this encounter Visit Diagnoses Not on filedocumented in this encounter
--- OUTSIDE RECORDS SUMMARY | 2024-09-13 15:14 | XMS_ITS | Encounter Summary ---
Author Organization [facility] Address [address] [place] [address] Care Team Providers Care Highway Painter Helper Name Role Phone Marco Parish MD Primary Care Provider [phone] Encounter Details Date Type Department Care Team (Late st Contact Info) Description 02/10/2007 Results Only [facility] - Maple conversion [address] [place] [address] Unknown, Provider, Social History Tobacco Use Types Packs/Day Years [...] Procedure Name Priority Date/Time Associated Diagnosis Comments N. GONORRHOEAE AMPLIFIED PROBE Routine 02/10/2007 16:54 EDT ZZCHLAMYDIA TRACHOMATIS AMPLIFIED PROBE Routine 02/10/2007 16:54 EDT documented in this encounter Results * N. GONORRHOEAE AMPLIFIED PROBE (02/10/2007 16:54 EDT) Result No Neisseria gonorrhoeae DNA detected by specialty therapist mediated amplification. [facility] Report Status Final [id number] [facility] Specimen Description Cervix [facility] 02/10/2007 16:5 4 EDT 02/10/2007 21:51 EDT us Provider Unknown MICROBIOLOGY - GENERAL ORDER BELINDA Final Result Performing Organization Address [facility] Co de Phone Number [facility] [address] [place] [address] * CHLAMYDIA TRACHOMATIS AMPLIFIED PROBE (02/10/2007 16:54 EDT) Specimen Description Cervix [facility] Result No Chlamydia trachomatis DNA detected by specialty therapist mediated amplification. [facility] Report Status Final [id number] [facility] 02/10/2007 16:5 4 EDT 02/10/2007 21:51 EDT us Provider Unknown MICROBIOLOGY - GENERAL ORDER BELINDA Final Result Performing Organization Address [facility] Co de Phone Number [facility] [address] [place] [address] documented in this encounter Visit Diagnoses Not on filedocumented in this encounter Care Teams Highway Painter Helper Relationship Specialty Start Date End Date Marco Parish MD [address] [place] [address] PCP - General 02/26/09 05/14/15 documented as of this encounter
--- OUTSIDE RECORDS SUMMARY | 2024-09-13 15:14 | XMS_ITS | Encounter Summary ---
Author Organization [facility] Address [address] [place] [address] Care Team Providers Care Size Mixer Name Role Phone Unavailable Primary Care Provider Unavailabl e Encounter Details Date Type Department Care Team (Latest Contact Info) Description 05/26/2000 14:48 EDT Hospital Encounter [facility] - [facility] conversion [address] [place] [address] Mirela Rothman NP [address] [address] Discharge Disposition: Auto Discharge Social History Tobacco [...] Destination Auto Discharge documented in this encounter Plan of Treatment Not on file documented as of this encounter Procedures Procedure Name Priority Date/Time Associated Diagnosis Comments FOOT 3 OR MORE VIEWS Routine 05/26/2000 15:47 EDT documented in this encounter Results * FOOT 3 OR MORE VIEWS (05/26/2000 15:47 EDT) Anatomical Region Laterality Modality Other 05/26/2000 15:4 7 EDT Narrative 09/04/2009 14:14 EST 19 YO F DROPPED MATAL GARBAGE CAN ON LT GREAT TOE THIS AM 05/26/00. ??W/C RELATED INJURY LEFT FOOT DATE: 05/26/2000 FINDINGS: AP, oblique, and lateral views are submitted. There is a very questionable hairline fracture deformity involving the lateral base of the great toe distal phalanx. Clinical correlation with pain at this site is recommended. The interphalangeal joint is grossly intact. No other displaced fracture or dislocation is identified. NOTE: These findings were communicated to Mirela Rothman on 05/29/00. /law Procedure Note Humberto Cardenas MD - 09/04/2009 19 YO F DROPPED MATAL GARBAGE CAN ON LT GREAT TOE THIS AM 05/26/00. W/C RELATED INJURY LEFT FOOT DATE: 05/26/2000 FINDINGS: AP, oblique, and lateral views are submitted. There is a very questionable hairline fracture deformity involving the lateral base of the great toe distal phalanx. Clinical correlation with pain at this site is recommended. The interphalangeal joint is grossly intact. No other displaced fracture or dislocation is identified. NOTE: These findings were communicated to Mirela Rothman on 05/29/00. /law Mirela Rothman NP IMG DIAGNOSTIC IMAGING O RDERABLES Final Result documented in this encounter Visit Diagnoses Not on filedocumented in this encounter
--- OUTSIDE RECORDS SUMMARY | 2024-09-13 15:14 | XMS_ITS | Encounter Summary ---
Author Organization [facility] Address [address] [place] [address] Care Team Providers Care Pipelines Laborer Name Role Phone Marco Parish MD Primary Care Provider [phone] Encounter Details Date Type Department Care Team (Late st Contact Info) Description 06/10/2004 Results Only [facility] - Maple conversion [address] [place] [address] Geraldine Lindquist, [address] [place] [address] Social History Tobacco Use Types Packs/Day Years [...] Priority Date/Time Associated Diagnosis Comments CYTOPATHOLOGY Routine 06/10/2004 0:00 EDT documented in this encounter Results * CYTOPATHOLOGY (06/10/2004 0:00 EDT) Pathology Report: CYTOPATHOLOGY REPORT Reports generated via electronic interface contain original data; however they are lacking the format of the original report. Caution should be taken when reading/interpreti ng unformatted reports. Name: ? GIDEON CARLIN ? Accession #: ? [id number] : ? 1980 (Age: 23) ??F ?Collect Date: ? 06/10/2004 Location: ? [facility] ? Receive Date: ? 06/11/2004 Provider: ?GERALDINE DMITRY CNM Copy to: ? Specimen/Source: ?ThinPrep Pap Test, Cervix/Endocervix Last Menstrual Period: ? 05/30/04 Hormonal/Contracep tive Status: ? Yes: Ortho Evra Patch Other: ? HPVA - HPV testing requested if ASC-US on the current ThinPrep Pap test. ? SPECIMEN ADEQUACY ? Satisfactory for Evaluation - transformation zone component present GENERAL CATEGORIZATION ? Negative for Intraepithelial Lesion or Malignancy ? Document reviewed and electronically signed by: ? Viridiana Arora, [facility](ASCP) ? Report Date: ??06/14/2004 10:53 End of Report [facility] 06/10/2004 06/11/2004 us Geraldine VILLAM PATHOLOGY ORDERABLES Final Re sult [facility] [address] [place] [address] documented in this encounter Visit Diagnoses Not on filedocumented in this encounter Care Teams Pipelines Laborer Relationship Specialty Start Date End Date Marco Parish MD [address] [place] [address] PCP - General 02/26/09 05/14/15 documented as of this encounter
--- OUTSIDE RECORDS SUMMARY | 2024-09-13 15:14 | XMS_ITS | Encounter Summary ---
Author Organization [facility] Address [address] [place] [address] Care Team Providers Care Calciner Operator Helper Name Role Phone Unavailable Primary Care Provider Unavailabl e Encounter Details Date Type Department Care Team (Latest Contact Info) Description 07/03/2007 19:25 EDT - 07/05/2007 11:59 EDT Hospital Encounter [facility] [address] [place] [address] Anna Sepulveda MD Discharge Disposition: Home or Self Care Social History Tobacco Use Types Packs/Day Years Used Date Smoking Tobacco: Never Assessed Comments Unknown Sex and Gender Information Value Date Recorded Sex Assigned at Not on file Legal Sex Female 17:36 EST Gender Identity Not on file Sexual Orientation Not on file documented as of this encounter Discharge Summaries * ChristianHina spannica - 07/05/2007 0000 EDT DISCHARGE SUMMARY Admission Date: 07/03/2007 Discharge Date: 07/05/2007 ADMISSION DIAGNOSIS labor versus uterine activity. DISCHARGE DIAGNOSIS uterine activity. HISTORY OF PRESENT ILLNESS The patient is a 26-year-old G3, P1-1-0-2 at 30+3 weeks estimated gestational age who was transferred from [facility] with contractions and possible cervical change. HOSPITAL COURSE Ms. Carlin was admitted to [facility] on July 03, 2007, for further evaluation of labor versus uterine activity. On admission she was having rare contractions with reassuring assessment. An ultrasound showed cephalic presentation with an MYLENE of 16.7 and anterior placenta and estimated weight of 2036 grams, which is greater than 90th percentile on the [facility] Growth Curve. Labs drawn on admission showed no signs of infection with a white blood cell count of 12.3 and slightly elevated CRP of 1.4. Her hematocrit was 28.7. She was continuedon her betamethasone course, which had been started at an outside hospital. Her magnesium sulfate, w hich had been started at an outside hospital, was changed to Indocin as a tocolytic. Over her admission, she was worked up for her anemia, which on July 04, 2007, was evident witha hematocrit of 26.7. She was found to be have iron- deficiency anemia. She completed her steroid course and continued to have a cervical exam of 1 cm dilated, 2-3 cm long. This was unchanged from heradmission exam. Ms. Carlin was discharged on July 05, 2007. DISPOSITION Home. DISCHARGE CONDITION Stable. DISCHARGE INSTRUCTIONS Ms. Carlin was instructed to follow up with her primary paper tester within the next week and to decrease her activity to a modified bedrest. Supervising Physician Signed by Anna Sepulveda MD 08/16/2007 11:35 Mona Betancourt MD Anna Sepulveda MD - MD Asia A - sb Job ID: [id number] Document ID: [id number] cc: MD Marco Gaitan MD Marjorie Kelso, CNM Jessica Veltkamp, MD Document ID: [id number] cc: MD Marco Gaitan MD Marjorie Kelso, CNM Jessica Veltkamp, MD documented in this encounter Discharge Disposition Disposition Code Departure Means Destination Home or Self Care documented in this encounter Progress Notes * Addison Garland MD - 07/16/2007 0000 EDT INPATIENT UPDATE LETTER July 16, 2007 Polina Lindquist, [facility] [address] [address] Dear Ms. Lindquist: Thank you for allowing us to participate in this patient's care via transport to our institution at31 weeks and 2 days secondary to labor. As you are aware, Ms. Carlin is a 26-year-old who was initially transported to our institution on the 03 of July at 30 weeks and 4 days secondary to labor. She remained stable with a castro fetus on ultrasound at that time with an estimated weight of 2036 grams. Her cervical dilation was found to be approximately 1.5 cm and her cervix was found to be 2 cm long. Her hematocrit, of note, revealed anemia, which fluctuated from28% on admission to 26% after hydration. At that time, she received Indocin tocolysis for 48 hours a nd underwent GBS prophylaxis and RDS prophylaxiswith betamethasone. She eventually was discharged home and was referred back to our institution on the 07 of July with recurrent labor. At that time, she was 31 weeks and 2 days, had an increase in her contraction activity and referred herself back to [facility]. Her cervical exam was noted to be unchanged since her prior admission at 1.5 cm and 2 cm long. The heart monitoring remained reassuring. Since she hadreceived betamethasone therapy for RDS prophylaxis on her recent hospitalization, it was elected toobserve her off tocolytic medications and she remained stable without tocolysis. Her cervical exam was unchanged and it was elected to discharge her again home on the 09 of July with instructions to establish her care at the [facility] in [place] as soon as possible, particularly because she has a previous history of section and has a desire for vaginal after . This patient was comfortable for discharge on hospital day three as she had no progressive cervicalchange and was comfortable with her baseline uterine activity that did not appear to be progressivepreterm labor. She will be contacting Dr. Chavez's office again in the near future to establish that care, but understands that if she is significantly , over the next few weeks she may endup back at our institution for ongoing care. Thank you again for allowing us to participate in this patient's care. Please do not hesitate to contact me if you need any further information regarding her transport to our institution. Sincerely, Signed by Addison Garland MD 07/20/2007 10:07 Radha Deshpande MD Addison Garland MD - Jimmy Garalnd MD P - CSS Job ID: [id number] Document ID: [id number] cc: MD Polina Larson [facility] Arely Chavez MD documented in this encounter Plan of Treatment Not on file documented as of this encounter Procedures Procedure Name Priority Date/Time Associated Diagnosis Comments RETICULOCYTE COUNT Routine 07/05/2007 14 :00 EDT VITAMIN B12 Routine 07/05/2007 14:00 EDT IBC Routine 07/04/2007 11:00 EDT IRON Routine 07/04/2007 11:00 EDT FOLATE Routine 07/04/2007 11:00 EDT FERRITIN Routine 07/04/2007 11:00 EDT COMPLETE BLOOD COUNT AND DIFFERENTIAL Routine 07/04/2007 8:00 EDT COMPLETE BLOOD COUNT Routine 07/04/2007 1:25 EDT CHLAMYDIA/GC AMPLIFIED PROBE Routine 07/03/2007 21:00 EDT HOLD BLUE TOP Routine 07/03/2007 20:50 EDT URINE CULTURE IF POSITIVE Routine 07/03/2007 20:50 EDT URINE CHEMICAL (DIP) & SEDIMENT (MICRO) WITHOUT REFLEX TO CULTURE Routine 07/03/2007 20:50 EDT FIBRINOGEN Routine 07/03/2007 20:50 EDT COMPLETE BLOOD COUNT AND DIFFERENTIAL Routine 07/03/2007 20:50 EDT BACTERIAL CULTURE, URINE Routine 07/03/2007 20:50 EDT C REACTIVE PROTEIN Routine 07/03/2007 20 :50 EDT GROUP B STREP PCR Routine 07/03/2007 20: 30 EDT documented in this encounter Results * (ABNORMAL) RETICULOCYTE COUNT (07/05/2007 14:00 EDT) Pathologist [facility] Retic Ct (Uncorrected) 2.1(H) 0.5 - 2.0 % [facility] 07/05/2007 14:0 0 EDT 07/05/2007 14:53 EDT Anna Sepulveda MD HEMATOLOGY & PF4 ORDERABLES Final Result Performing Organization Address [facility] Co de Phone Number [facility] [address] [place] [address] * VITAMIN B12 (07/05/2007 14:00 EDT) [facility] Vitamin B-12 294 250 - 1100 pg/ml [facility] 07/05/2007 14:0 0 EDT 07/05/2007 14:53 EDT Anna Sepulveda MD CHEMISTRY & BLOOD GAS ORDERA BLES Final Result Performing Organization Address [facility] Co de Phone Number [facility] [address] [place] [address] * (ABNORMAL) IRON (07/04/2007 11:00 EDT) Pathologist [facility] Iron 35(L) 60 - 180 ug/dl [facility] 07/04/2007 11:0 0 EDT 07/04/2007 11:37 EDT us Anna Sepulveda MD CHEMISTRY & BLOOD GAS ORDERA BLES Final Result Performing Organization Address [facility] de Phone Number [facility] [address] [place] [address] * IBC (07/04/2007 11:00 EDT) TIBC 406 265 - 497 ug/dl [facility] Comment:Note new method and reference range as of 08/26/06 07/04/2007 11:0 0 EDT 07/04/2007 11:37 EDT us Anna Sepulveda MD CHEMISTRY & BLOOD GAS ORDERA BLES Final Result Performing Organization Address [facility] de Phone Number [facility] [address] [place] [address] * FOLATE (07/04/2007 11:00 EDT) Pathologist [facility] Folate 17.5 ng/mL [facility] Comment: Deficient: ??Less than 3.4 ng/mL Indeterminate: ??3.4-5.4 ng/mL Normal: ??Greater than 5.4 ng/mL 07/04/2007 11:0 0 EDT 07/04/2007 11:37 EDT us Anna Sepulveda MD CHEMISTRY & BLOOD GAS ORDERA BLES Final Result Performing Organization Address [facility] de Phone Number [facility] [address] [place] [address] * (ABNORMAL) FERRITIN (07/04/2007 11:00 EDT) Ferritin 3(L) 10 - 291 ng/mL [facility] 07/04/2007 11:0 0 EDT 07/04/2007 11:37 EDT us Anna Sepulveda MD CHEMISTRY & BLOOD GAS ORDERA BLES Final Result [facility] [address] [place] [address] * (ABNORMAL) HEMAGRAM AND DIFFERENTIAL (07/04/2007 8:00 EDT) WBC 12.56(H) 4.0 - 12.4 K/cmm [facility] RBC 2.97(L) 3.86 - 5.04 M/cmm [facility] Hemoglobin 9.2(L) 11.6 - 15.2 gm/dl [facility] HCT 26.3(L) 34.9 - 44.4 % [facility] MCV 89 81 - 98 fl [facility] MCH 30.9 26.7 - 33.3 pg [facility] MCHC 34.9 32.1 - 35.9 gm/dl [facility] PLT 250 141 - 320 K/cmm [facility] RDW-CV 13.5 11.7 - 14.6 % [facility] % Neutrophils 88.5(H) 45.5 - 79.7 % [facility] % Lymphocytes 7.7(L) 15.0 - 46.8 % [facility] % Monocytes 3.4 1.8 - 12.0 % [facility] % Eosinophils 0.4(L) 0.6 - 6.9 % [facility] % Basophils 0.0(L) 0.2 - 1.4 % [facility] ABS Neutrophils 11.12(H) 2.20 - 8.85 K/cmm [facility] ABS Lymphs 0.96(L) 1.09 - 3.30 K/cmm [facility] ABS Monocytes 0.42 0.1 - 0.8 K/cmm [facility] ABS Eosinophils 0.05 0.03 - 0.61 K/cmm [facility] ABS Basophils 0.00(L) 0.01 - 0.11 K/cmm [facility] Type of Diff: Automated [facility] 07/04/2007 8:00 EDT 07/04/2007 8:04 EDT us Anna Sepulveda MD PACKAGES & DNA PROBE ORDERAB LES Final Result Performing Organization Address [facility] Co de Phone Number [facility] [address] [place] [address] * (ABNORMAL) HEMAGRAM (07/04/2007 1:25 EDT) Pathologist [facility] WBC 11.20 4.0 - 12.4 K/cmm [facility] RBC 3.01(L) 3.86 - 5.04 M/cmm [facility] Hemoglobin 9.2(L) 11.6 - 15.2 gm/dl [facility] HCT 26.7(L) 34.9 - 44.4 % [facility] MCV 89 81 - 98 fl [facility] MCH 30.7 26.7 - 33.3 pg [facility] MCHC 34.5 32.1 - 35.9 gm/dl [facility] PLT 252 141 - 320 K/cmm [facility] RDW-CV 14.0 11.7 - 14.6 % [facility] 07/04/2007 1:25 EDT 07/04/2007 1:44 EDT Anna Sepulveda MD HEMATOLOGY & PF4 ORDERABLES Final Result Performing Organization Address [facility] Co de Phone Number [facility] [address] [place] [address] * CHLAMYDIA/GC AMPLIFIED PROBE (07/03/2007 21:00 EDT) Pathologist [facility] Specimen Description Cervix [facility] Result No Chlamydia trachomatis or Neisseria gonorrhoeae DNA detected by multifocal button generator mediated amplification. [facility] Report Status Final [id number] [facility] 07/03/2007 21:0 0 EDT 07/03/2007 21:42 EDT Anna Sepulveda MD MICROBIOLOGY - GENERAL ORDER BELINDA Final Result Performing Organization Address [facility] Co de Phone Number [facility] [address] [place] [address] * BACTERIAL CULTURE, URINE (07/03/2007 20:50 EDT) Specimen Description Urine [facility] Result No growth [facility] Report Status Final [id number] [facility] 07/03/2007 20:5 0 EDT 07/03/2007 21:37 EDT us Anna Sepulveda MD MICROBIOLOGY - GENERAL ORDER BELINDA Final Result Performing Organization Address [facility] de Phone Number [facility] [address] [place] [address] * HOLD BLUE TOP (07/03/2007 20:50 EDT) Hold Blue Top Sample for coagulation will be discarded after 4 hours [facility] 07/03/2007 20:5 0 EDT 07/03/2007 20:54 EDT Anna Sepulveda MD LAB INFO SERVICE AND SUPPORT & PHONE RESULT Final Result Performing Organization Address [facility] de Phone Number [facility] [address] [place] [address] * (ABNORMAL) FIBRINOGEN (07/03/2007 20:50 EDT) Pathologist [facility] Fibrinogen 511(H) 220 - 410 mg/dl [facility] 07/03/2007 20:5 0 EDT 07/03/2007 20:54 EDT us Anna Sepulveda MD HEMATOLOGY & PF4 ORDERABLES Final Result Performing Organization Address [facility] de Phone Number [facility] [address] [place] [address] * (ABNORMAL) UA WITH MICROSCOPIC (07/03/2007 20:50 EDT) Pathologist [facility] Color, UA Yellow [facility] Clarity, UA Clear [facility] Glucose, UA Norm NORM [facility] Bilirubin, UA Neg NEG [facility] Ketones, UA Small(A) NEG [facility] Specific Kemmerer, Urine 1.010 1.005 - 1.02 [facility] Blood, UA Trace(A) NEG [facility] pH, UA 7.0 5.0 - 9.0 [facility] Protein, UA Neg NEG [facility] Urobilinogen, UA Norm NORM mg/dL [facility] Nitrite, UA Neg NEG [facility] Leuk Esterase Neg NEG [facility] WBC, UA less than 1 0 - 5 /HPF [facility] RBC, UA less than 1 0 - 5 /HPF [facility] Squam Epithel, UA None seen NS /HPF [facility] Renal Epithel, UA None seen NS /HPF [facility] Bacteria, UA None seen NS /HPF [facility] Crystals, UA None seen /HPF [facility] Hyaline Casts, UA None seen /LPF [facility] UA Comment Microscopic results are unreliable on urines unrefrig >2hrs or refrig >8hrs. [facility] Additional Findings Few transitional epithelial cells. [facility] 07/03/2007 20:5 0 EDT 07/03/2007 21:08 EDT us Yenifer Wilson URINALYSIS ORDERABLES Final Resu lt Performing Organization Address [facility] Co de Phone Number [facility] [address] [place] [address] * CULTURE IF UA POSITIVE (07/03/2007 20:50 EDT) Culture if Indicated Culture indicated by urinalysis results. [facility] 07/03/2007 20:5 0 EDT 07/03/2007 21:08 EDT us Yenifer Wilson MICROBIOLOGY - GENERAL ORDERABLE S Final Result Performing Organization Address [facility] Co de Phone Number [facility] [address] [place] [address] * (ABNORMAL) C-REACTIVE PROTEIN (07/03/2007 20:50 EDT) C-Reactive Protein 1.4(H) <1.0 mg/dl [facility] 07/03/2007 20:5 0 EDT 07/03/2007 20:53 EDT Yenifer Wilson CHEMISTRY & BLOOD GAS ORDERABLES Final Result [facility] [address] [place] [address] * (ABNORMAL) HEMAGRAM AND DIFFERENTIAL (07/03/2007 20:50 EDT) WBC 12.33 4.0 - 12.4 K/cmm [facility] RBC 3.22(L) 3.86 - 5.04 M/cmm [facility] Hemoglobin 9.8(L) 11.6 - 15.2 gm/dl [facility] HCT 28.7(L) 34.9 - 44.4 % [facility] MCV 89 81 - 98 fl [facility] MCH 30.4 26.7 - 33.3 pg [facility] MCHC 34.2 32.1 - 35.9 gm/dl [facility] PLT 261 141 - 320 K/cmm [facility] RDW-CV 14.2 11.7 - 14.6 % [facility] % Neutrophils 88.4(H) 45.5 - 79.7 % [facility] % Lymphocytes 7.9(L) 15.0 - 46.8 % [facility] % Monocytes 1.3(L) 1.8 - 12.0 % [facility] % Eosinophils 2.0 0.6 - 6.9 % [facility] % Basophils 0.4 0.2 - 1.4 % [facility] ABS Neutrophils 10.91(H) 2.20 - 8.85 K/cmm [facility] ABS Lymphs 0.97(L) 1.09 - 3.30 K/cmm [facility] ABS Monocytes 0.16 0.1 - 0.8 K/cmm [facility] ABS Eosinophils 0.25 0.03 - 0.61 K/cmm [facility] ABS Basophils 0.05 0.01 - 0.11 K/cmm [facility] Type of Diff: Automated [facility] 07/03/2007 20:5 0 EDT 07/03/2007 20:53 EDT us Yenifer Wilson PACKAGES & DNA PROBE ORDERABLES Final Result Performing Organization Address [facility] de Phone Number [facility] [address] [place] [address] * GROUP B STREPTOCOCCUS MOLECULAR DETECTION (07/03/2007 20:30 EDT) Specimen Description Vaginal and Rectal [facility] Result No Group B beta streptococcal DNA detected by PCR. [facility] Report Status Final [id number] [facility] 07/03/2007 20:3 0 EDT 07/03/2007 21:02 EDT us Yenifer Wilson MICROBIOLOGY - GENERAL ORDERABLE S Final Result Performing Organization Address [facility] de Phone Number [facility] [address] [place] [address] documented in this encounter Visit Diagnoses Not on filedocumented in this encounter
--- OUTSIDE RECORDS SUMMARY | 2024-09-13 15:14 | XMS_ITS | Encounter Summary ---
Author Organization [facility] Address [address] [place] [address] Care Team Providers Care Drapery Inspector Name Role Phone Marco Parish MD Primary Care Provider [phone] Encounter Details Date Type Department Care Team (Late st Contact Info) Description 06/16/2007 Results Only [facility] - [facility] conversion [address] [place] [address] Unknown, Provider, Social History Tobacco Use Types [...] Procedure Name Priority Date/Time Associated Diagnosis Comments RUBELLA IGG ANTIBODY Routine 06/16/2007 14:30 EDT documented in this encounter Results * RUBELLA IGG ANTIBODY (06/16/2007 14:30 EDT) Rubella IgG Ab Interpretatio n: ??Indetermina te Assayed utilizing the [facility] Immulite 2500. Values may vary with other methods. Sample retested, result confirmed [facility] 06/16/2007 14:3 0 EDT 06/16/2007 21:10 EDT us Provider Unknown CHEMISTRY & BLOOD GAS ORDERA BLES Final Result [facility] [address] [place] [address] documented in this encounter Visit Diagnoses Not on filedocumented in this encounter Care Teams Drapery Inspector Relationship Specialty Start Date End Date Marco Parish MD [address] [place] [address] PCP - General 02/26/09 05/14/15 documented as of this encounter
--- OUTSIDE RECORDS SUMMARY | 2024-09-13 15:14 | XMS_ITS | Encounter Summary ---
Author Organization [facility] Address [address] [place] [address] Care Team Providers Care Donor Specialist Name Role Phone Unavailable Primary Care Provider Unavailabl e Encounter Details Date Type Department Care Team (Late st Contact Info) Description 06/08/2003 11:07 EDT Hospital Encounter [facility] - Other [address] [place] [address] Delfina Avila CNM [address] [place] [address],[address] [place] [address] Social History Tobacco Use Types Packs/Day Years [...] Priority Date/Time Associated Diagnosis Comments CYTOPATHOLOGY Routine 06/08/2003 0:00 EDT documented in this encounter Results * CYTOPATHOLOGY (06/08/2003 0:00 EDT) Pathology Report: CYTOPATHOLOGY REPORT Reports generated via electronic interface contain original data; however they are lacking the format of the original report. Caution should be taken when reading/interpreti ng unformatted reports. Name: ? GIDEON ARANA ? Accession #: ? [id number] : ? 1980 (Age: 22) ??F ?Collect Date: ? 06/08/2003 Location: ? [facility] ? Receive Date: ? 06/12/2003 Provider: ?DELFINA AVILA CNM Copy to: ? Specimen/Source: ?ThinPrep Pap Test, Cervix/Endocervix Last Menstrual Period: ? 05/25/03 Hormonal/Contracep tive Status: ? Yes: The Patch Other: ? HPVA - HPV testing requested if ASC-US on the current ThinPrep Pap test. ? SPECIMEN ADEQUACY ? Satisfactory for Evaluation - transformation zone component present GENERAL CATEGORIZATION ? Negative for Intraepithelial Lesion or Malignancy ? Document reviewed and electronically signed by: ? ELSY Fallon(ASCP) ? Report Date: ??06/15/2003 10:04 End of Report [facility] 06/08/2003 06/12/2003 us Delfina Avila CNM PATHOLOGY ORDERABLES Final Re sult [facility] [address] [place] [address] documented in this encounter Visit Diagnoses Not on filedocumented in this encounter
--- OUTSIDE RECORDS SUMMARY | 2024-09-13 15:14 | XMS_ITS | Encounter Summary ---
Author Organization [facility] Address [address] [place] [address] Care Team Providers Care Pusher Operator Name Role Phone Marco Parish MD Primary Care Provider [phone] Encounter Details Date Type Department Care Team (Late st Contact Info) Description 03/02/2007 Results Only [facility] [address] [place] [address] Unknown, Provider, Social History Tobacco Use Types [...] Associated Diagnosis Comments RUBELLA IGG ANTIBODY Routine 03/02/2007 11:35 EDT HEPATITIS B SURFACE ANTIGEN Routine 03/02/2007 11:35 EDT SYPHILIS SERO (RPR) Routine 03/02/2007 1 1:35 EDT HIV 1/2 ANTIGEN AND ANTIBODY, 4TH GENERATION Routine 03/02/2007 11:35 EDT documented in this encounter Results * RUBELLA IGG ANTIBODY (03/02/2007 11:35 EDT) Rubella IgG Ab Interpretatio n: ??Indetermina te Repeat testing recommended. Assayed utilizing the D[facility] Immulite 2500. Values may vary with other methods. Sample retested, result confirmed [facility] 03/02/2007 11:3 5 EDT 03/02/2007 21:58 EDT us Provider Unknown CHEMISTRY & BLOOD GAS ORDERA BLES Final Result Performing Organization Address [facility] Co de Phone Number [facility] [address] [place] [address] * SYPHILIS SERO (RPR) (03/02/2007 11:35 EDT) Syphilis Sero (RPR) NONREACT. NR Dils [facility] 03/02/2007 11:3 5 EDT 03/02/2007 21:58 EDT us Provider Unknown IMMUNOLOGY AND SEROLOGY ORDE RABLES Final Result Performing Organization Address [facility] de Phone Number [facility] [address] [place] [address] * HIV ANTIBODY (BONILLA) (03/02/2007 11:35 EDT) HIV 1/2 Antibody NONREACT. NR [facility] 03/02/2007 11:3 5 EDT 03/02/2007 21:58 EDT us Provider Unknown IMMUNOLOGY AND SEROLOGY ORDE RABLES Final Result Performing Organization Address [facility] Co de Phone Number [facility] [address] [place] [address] * HEPATITIS B SURFACE ANTIGEN (03/02/2007 11:35 EDT) Hepatitis B Surface Ag Neg [facility] 03/02/2007 11:3 5 EDT 03/02/2007 21:58 EDT us Provider Unknown CHEMISTRY & BLOOD GAS ORDERA BLES Final Result Performing Organization Address [facility] Co de Phone Number [facility] [address] [place] [address] documented in this encounter Visit Diagnoses Not on filedocumented in this encounter Care Teams Pusher Operator Relationship Specialty Start Date End Date Marco Parish MD [address] [place] [address] PCP - General 02/26/09 05/14/15 documented as of this encounter
--- OUTSIDE RECORDS SUMMARY | 2024-09-13 15:14 | XMS_ITS | Encounter Summary ---
Author Organization [facility] Address [address] [place] [address] Care Team Providers Care Senior Interaction Designer Name Role Phone Marco Parish MD Primary Care Provider [phone] Encounter Details Date Type Department Care Team (Late st Contact Info) Description 07/28/2006 Results Only [facility] - [facility] conversion [address] [place] [address] Delfina Avila, [address] [place] [address] Social History Tobacco Use Types Packs/Day Years [...] Priority Date/Time Associated Diagnosis Comments CYTOPATHOLOGY Routine 07/28/2006 0:00 EDT documented in this encounter Results * CYTOPATHOLOGY (07/28/2006 0:00 EDT) Pathology Report: CYTOPATHOLOGY REPORT Reports generated via electronic interface contain original data; however they are lacking the format of the original report. Caution should be taken when reading/interpreti ng unformatted reports. Name: ? GIDEON ARANA ? Accession #: ? [id number] : ? 1980 (Age: 25) ??F ?Collect Date: ? 07/28/2006 Location: ? [facility] ? Receive Date: ? 07/29/2006 Provider: ?DELFINA AVLIA CNM Copy to: ? Specimen/Source: ?ThinPrep Pap Test, Cervix/Endocervix, processed on [employer] ThinPrep Imaging System, with manual evaluation Last Menstrual Period: ? 9.7.06 Hormonal/Contracep tive Status: ? Yes: Ortho Evra Other: ? HPVA - HPV testing requested if ASC-US on the current ThinPrep Pap test. ? SPECIMEN ADEQUACY ? Satisfactory for Evaluation - transformation zone component present GENERAL CATEGORIZATION ? Negative for Intraepithelial Lesion or Malignancy ? Document reviewed and electronically signed by: ? ELSY Lopez(ASCP) ? Report Date: ??08/03/2006 12:15 End of Report [facility] 07/28/2006 07/29/2006 us Delfina Avila CNM PATHOLOGY ORDERABLES Final Re sult [facility] [address] [place] [address] documented in this encounter Visit Diagnoses Not on filedocumented in this encounter Care Teams Senior Interaction Designer Relationship Specialty Start Date End Date Marco Parish MD [address] [place] [address] PCP - General 02/26/09 05/14/15 documented as of this encounter
--- OUTSIDE RECORDS SUMMARY | 2024-09-13 15:14 | XMS_ITS | Encounter Summary ---
Author Organization [facility] Address [address] [place] [address] Care Team Providers Care Supervisor Beehive Kiln Name Role Phone Unavailable Primary Care Provider Unavailabl e Encounter Details Date Type Department Care Team (Late st Contact Info) Description 03/13/2000 9:14 EDT Hospital Encounter [facility] - Other [address] [place] [address] Reyna Gaytan NP [address] [address] Unknown, Provider, Social History Tobacco Use Types [...] Procedure Name Priority Date/Time Associated Diagnosis Comments N.GONORRHOEAE PROBE Routine 03/13/2000 1 2:30 EDT CHLAMYDIA TRACHOMATIS PROBE Routine 03/13/2000 12:30 EDT CYTOPATHOLOGY Routine 03/13/2000 0:00 EDT documented in this encounter Results * N.GONORRHOEAE PROBE (03/13/2000 12:30 EDT) Specimen Description Cervix [facility] Result No Neisseria gonorrhoeae DNA detected by caregiver services home mediated amplification. [facility] Report Status Final [id number] [facility] 03/13/2000 12:3 0 EDT 03/14/2000 7:54 EDT Reyna Gaytan NP HISTORICAL LAB FOR SQ LO AD Final Result Performing Organization Address [facility] de Phone Number [facility] [address] [place] [address] * CHLAMYDIA TRACHOMATIS PROBE (03/13/2000 12:30 EDT) Specimen Description Cervix [facility] Result No Chlamydia trachomatis DNA detected by caregiver services home mediated amplification. [facility] Report Status Final [id number] [facility] 03/13/2000 12:3 0 EDT 03/14/2000 7:54 EDT Reyna Gaytan NP HISTORICAL LAB FOR SQ LO AD Final Result Performing Organization Address [facility] de Phone Number [facility] [address] [place] [address] * CYTOPATHOLOGY (03/13/2000 0:00 EDT) Pathology Report: CYTOPATHOLOGY REPORT Reports generated via electronic interface contain original data; however they are lacking the format of the original report. Caution should be taken when reading/interpreti ng unformatted reports. Name: ? GIDEON CARLIN Josette ? Accession #: ? [id number] : ? 1980 (Age: 19) ??F ?Collect Date: ? 03/13/2000 Location: ? [facility] ? Receive Date: ? 03/16/2000 Provider: ?REYNA GAYTAN PA Copy to: ? Specimen/Source: ?ThinPrep Pap Test, Source Not Provided Last Menstrual Period: ? zs ? SPECIMEN ADEQUACY ? Satisfactory for evaluation. GENERAL CATEGORIZATION ? Within Normal Limits ? Document reviewed and electronically signed by: ? ELSY Lopez(ASCP) ? Report Date: ??03/18/2000 15:44 End of Report [facility] 03/13/2000 03/16/2000 us Reyna Gaytan NP PATHOLOGY ORDERABLES Fin al Result [facility] [address] [place] [address] documented in this encounter Visit Diagnoses Not on filedocumented in this encounter
--- OUTSIDE RECORDS SUMMARY | 2024-09-13 15:14 | XMS_ITS | Encounter Summary ---
Author Organization [facility] Address [address] [place] [address] Care Team Providers Care Vocational Guidance Counselor Name Role Phone Unavailable Primary Care Provider Unavailabl e Encounter Details Date Type Department Care Team (Late st Contact Info) Description 11/03/2000 14:53 EST Hospital Encounter [facility] - Other [address] [place] [address] Reyna Gaytan NP [address] [address] Unknown, Provider, Social History Tobacco Use Types [...] Date/Time Associated Diagnosis Comments N.GONORRHOEAE PROBE Routine 11/03/2000 1 3:30 EST CHLAMYDIA TRACHOMATIS PROBE Routine 11/03/2000 13:30 EST CYTOPATHOLOGY Routine 11/03/2000 0:00 EST documented in this encounter Results * N.GONORRHOEAE PROBE (11/03/2000 13:30 EST) Specimen Description Cervix [facility] Result No Neisseria gonorrhoeae DNA detected by photographic plate maker mediated amplification. [facility] Report Status Final [id number] [facility] 11/03/2000 13:3 0 EST 11/04/2000 8:57 EST Reyna Gaytan EDGER RUNNER HISTORICAL LAB FOR SQ LO AD Final Result Performing Organization Address [facility] de Phone Number [facility] [address] [place] [address] * CHLAMYDIA TRACHOMATIS PROBE (11/03/2000 13:30 EST) Specimen Description Cervix [facility] Result No Chlamydia trachomatis DNA detected by photographic plate maker mediated amplification. [facility] Report Status Final [id number] [facility] 11/03/2000 13:3 0 EST 11/04/2000 8:57 EST Reyna Gaytan EDGER RUNNER HISTORICAL LAB FOR SQ LO AD Final Result Performing Organization Address [facility] de Phone Number [facility] [address] [place] [address] * CYTOPATHOLOGY (11/03/2000 0:00 EST) Pathology Report: CYTOPATHOLOGY REPORT Reports generated via electronic interface contain original data; however they are lacking the format of the original report. Caution should be taken when reading/interpreti ng unformatted reports. Name: ? SUMITGIDEON Josette ? Accession #: ? [id number] : ? 1980 (Age: 19) ??F ?Collect Date: ? 11/03/2000 Location: ? [facility] ? Receive Date: ? 11/05/2000 Provider: ?REYNA GAYTAN PA Copy to: ? Specimen/Source: ?ThinPrep Pap Test, Cervix Last Menstrual Period: ? 3 weeks ? SPECIMEN ADEQUACY ? Satisfactory for evaluation. GENERAL CATEGORIZATION ? Within Normal Limits ? Document reviewed and electronically signed by: ? Dong Madsen, ELSY(ASCP) ? Report Date: ??11/05/2000 13:22 End of Report [facility] 11/03/2000 11/05/2000 us Reyna Gaytan EDGER RUNNER PATHOLOGY ORDERABLES Fin al Result [facility] [address] [place] [address] documented in this encounter Visit Diagnoses Not on filedocumented in this encounter
--- OUTSIDE RECORDS SUMMARY | 2024-09-13 15:14 | XMS_ITS | Encounter Summary ---
Author Organization [facility] Address [address] [place] [address] Care Team Providers Care Breaster Name Role Phone Unavailable Primary Care Provider Unavailabl e Encounter Details Date Type Department Care Team (Late st Contact Info) Description 03/03/2002 10:13 EDT Hospital Encounter [facility] - Other [address] [place] [address] Delfina Avila CNM [address] [place] [address],[address] [place] [address] Unknown, Provider, Social History Tobacco Use Types [...] Priority Date/Time Associated Diagnosis Comments CYTOPATHOLOGY Routine 03/03/2002 0:00 EDT documented in this encounter Results * CYTOPATHOLOGY (03/03/2002 0:00 EDT) Pathology Report: CYTOPATHOLOGY REPORT Reports generated via electronic interface contain original data; however they are lacking the format of the original report. Caution should be taken when reading/interpreti ng unformatted reports. Name: ? GIDEON ARANA ? Accession #: ? [id number] : ? 1980 (Age: 21) ??F ?Collect Date: ? 03/03/2002 Location: ? [facility] ? Receive Date: ? 03/07/2002 Provider: ?DELFINA AVILA CNM Copy to: ? Specimen/Source: ?ThinPrep Pap Test, Cervix/Endocervix Last Menstrual Period: ? Menstrual/Pregnanc y Status: ? Post Other: ? Additional clinical information: Pap of 12/20/01 WNL ? SPECIMEN ADEQUACY ? Satisfactory for Evaluation - transformation zone component present GENERAL CATEGORIZATION ? Negative for Intraepithelial Lesion or Malignancy ? Document reviewed and electronically signed by: ? MERT Le(ASCP) ? Report Date: ??03/09/2002 09:07 End of Report [facility] 03/03/2002 03/07/2002 us Delfina Avila CNM PATHOLOGY ORDERABLES Final Re sult [facility] [address] [place] [address] documented in this encounter Visit Diagnoses Not on filedocumented in this encounter
--- OUTSIDE RECORDS SUMMARY | 2024-09-13 15:14 | XMS_ITS | Encounter Summary ---
Author Organization [facility] Address [address] [place] [address] Care Team Providers Care Experimental Psychologist Name Role Phone Marco Parish MD Primary Care Provider [phone] Encounter Details Date Type Department Care Team (Late st Contact Info) Description 06/16/2005 Results Only [facility] - [facility] conversion [address] [place] [address] Delfina Avila, [address] [place] [address] Social History Tobacco Use Types Packs/Day Years [...] Priority Date/Time Associated Diagnosis Comments CYTOPATHOLOGY Routine 06/16/2005 0:00 EDT documented in this encounter Results * CYTOPATHOLOGY (06/16/2005 0:00 EDT) Pathology Report: CYTOPATHOLOGY REPORT Reports generated via electronic interface contain original data; however they are lacking the format of the original report. Caution should be taken when reading/interpreti ng unformatted reports. Name: ? GIDEON ARANA ? Accession #: ? [id number] : ? 1980 (Age: 24) ??F ?Collect Date: ? 06/16/2005 Location: ? [facility] ? Receive Date: ? 06/18/2005 Provider: ?DELFINA AVILA CNM Copy to: ?MARCO PARISH MD ? Specimen/Source: ?ThinPrep Pap Test, Cervix/Endocervix, processed on [employer] ThinPrep Imaging System, with manual evaluation Last Menstrual Period: ? 05/22/05 Hormonal/Contracep tive Status: ? Yes: Ortho Evra Patch Other: ? HPVA - HPV testing requested if ASC-US on the current ThinPrep Pap test. ? SPECIMEN ADEQUACY ? Satisfactory for Evaluation - transformation zone component present GENERAL CATEGORIZATION ? Negative for Intraepithelial Lesion or Malignancy ? Document reviewed and electronically signed by: ? MRET Le(ASCP) ? Report Date: ??06/26/2005 08:03 End of Report [facility] 06/16/2005 06/18/2005 us Delfina Avila CNM PATHOLOGY ORDERABLES Final Re sult [facility] [address] [place] [address] documented in this encounter Visit Diagnoses Not on filedocumented in this encounter Care Teams Experimental Psychologist Relationship Specialty Start Date End Date Marco Parish MD [address] [place] [address] PCP - General 02/26/09 05/14/15 documented as of this encounter
--- OUTSIDE RECORDS SUMMARY | 2024-09-13 15:14 | XMS_ITS | Encounter Summary ---
Author Organization [facility] Address [address] [place] [address] Care Team Providers Care Converter Operator Name Role Phone Unavailable Primary Care Provider Unavailabl e Encounter Details Date Type Department Care Team (Late st Contact Info) Description 10/30/1999 9:40 EST - 10/30/1999 11:59 EST Hospital Encounter [address] [address] Kinjal Pugh MD [address] [place], [place] [phone] Discharge Disposition: Auto Discharge Social History Tobacco [...] Procedure Name Priority Date/Time Associated Diagnosis Comments TEST, URINE Routine 10/30/1999 9:59 EST documented in this encounter Results * TEST, URINE (10/30/1999 9:59 EST) Result-Pregnan cy Test, Ur Neg [facility] Specific [place] 1.020 CALLED TO [facility] 10/30/1999 9:59 EST 10/30/1999 10:04 EST us Provider Unknown URINALYSIS ORDERABLES Final Result Performing Organization Address City/State/[facility] Co de Phone Number [facility] [address] [place] [address] documented in this encounter Visit Diagnoses Not on filedocumented in this encounter
--- OUTSIDE RECORDS SUMMARY | 2024-09-13 15:14 | XMS_ITS | Encounter Summary ---
Author Organization [facility] Address [address] [place] [address] Care Team Providers Care Life Sciences Instructor Name Role Phone Unavailable Primary Care Provider Unavailabl e Encounter Details Date Type Department Care Team (Latest Contact Info) Description 09/26/2000 23:15 EST - 09/27/2000 11:59 EST Hospital Encounter [facility] Emergency Department - [facility] [address] [place] [address] Emergency, Default, MD Discharge Disposition: Home or Self Care [...] Procedure Name Priority Date/Time Associated Diagnosis Comments WRIST 3 OR MORE VIEWS Routine 09/27/2000 0:14 EST documented in this encounter Results * WRIST 3 OR MORE VIEWS (09/27/2000 0:14 EST) Anatomical Region Laterality Modality Other 09/27/2000 0:14 EST Narrative 09/04/2009 22:20 EST SWELLING, PAIN R/O FX AP, LATERAL AND OBLIQUE VIEWS, RIGHT WRIST 09/27/00, 0005 hours HISTORY: pain and swelling; r/o fx FINDINGS: There is no evidence of fracture or subluxation. The attending radiologist has reviewed the images, and concurs with the findings described above. D 09/27/00 T 09/29/00 /sarai Procedure Note Era Chadwick MD / Severino Live MD - 09/04/2009 SWELLING, PAIN R/O FX AP, LATERAL AND OBLIQUE VIEWS, RIGHT WRIST 09/27/00, 0005 hours HISTORY: pain and swelling; r/o fx FINDINGS: There is no evidence of fracture or subluxation. The attending radiologist has reviewed the images, and concurs with the findings described above. D 09/27/00 T 09/29/00 /sarai Aniya Haney MD IMG DIAGNOSTIC IMAGING ORDERA BLES Final Result documented in this encounter Visit Diagnoses Not on filedocumented in this encounter
--- OUTSIDE RECORDS SUMMARY | 2024-09-13 15:14 | XMS_ITS | Encounter Summary ---
Author Organization [facility] Address [address] [place] [address] Care Team Providers Care Underground Foreman Name Role Phone Unavailable Primary Care Provider Unavailabl e Encounter Details Date Type Department Care Team (Late st Contact Info) Description 06/10/2004 11:12 EDT Hospital Encounter [facility] - Other [address] [place] [address] Polina Lindquist [address] [place] [address] Social History Tobacco Use Types Packs/Day Years [...] Procedure Name Priority Date/Time Associated Diagnosis Comments MR CERVICAL SPINE WO CONTRAST 05/15/2015 18:53 EDT documented in this encounter Results * MR CERVICAL SPINE WO CONTRAST (05/15/2015 18:53 EDT) Anatomical Region Laterality Modality Other 05/15/2015 18:5 3 EDT 05/16/2015 13:31 EDT Narrative 05/16/2015 13:31 EDT MRI cervical spine without contrast History: Neck pain, C5-6 DJD Technique: Sagittal T1 and T2 as well as axial T2 and sagittal oblique T2 were obtained through the cervical spine. Findings: There is no acute fracture of the cervical spine. There is mild focal reversal of the normal cervical lordosis at the C5-6 level. There is decreased T1 and T2 signal within the dens diffusely. No origins or soft tissue masses are identified about the C1-2 articulation. Marrow signal within the visualized cervicothoracic spine is otherwise normal. The prevertebral soft tissues and craniocervical junction are normal. The cervical spinal cord has a normal signal intensity . At the C2-C3 level, the spinal canal and neural foramen are patent. At the C3-C4 level, there is a [...] spinal canal and neural foramen are patent. Conclusion: Multilevel cervical degenerative disc disease and facet osteophyte is. There is cord impingement at the C3-4 level spinal canal stenosis at the C5-6 level. No cord signal normality is identified. Procedure Note Crow Gates DO - 05/16/2015 MRI cervical spine without contrast History: Neck pain, C5-6 DJD Technique: Sagittal T1 and T2 as well as axial T2 and sagittal oblique T2 were obtained through the cervical spine. Findings: There is no acute fracture of the cervical spine. There is mild focal reversal of the normal cervical lordosis at the C5-6 level. There is decreased T1 and T2 signal within the dens diffusely. No origins or soft tissue masses are identified about the C1-2 articulation. Marrow signal within the visualized cervicothoracic spine is otherwise normal. The prevertebral soft tissues and craniocervical junction are normal. The cervical spinal cord has a normal signal intensity . At the C2-C3 level, the spinal canal and neural foramen are patent. At the C3-C4 level, there is a [...] spinal canal and neural foramen are patent. Conclusion: Multilevel cervical degenerative disc disease and facet osteophyte is. There is cord impingement at the C3-4 level spinal canal stenosis at the C5-6 level. No cord signal normality is identified. us Beto Santoyo MD IMG MRI ORDERABLES Final Result documented in this encounter Visit Diagnoses Not on filedocumented in this encounter
--- OUTSIDE RECORDS SUMMARY | 2024-09-13 15:14 | XMS_ITS | Encounter Summary ---
Author Organization [facility] Address [address] [place] [address] Care Team Providers Care Workday Financials Consultant Name Role Phone Unavailable Primary Care Provider Unavailabl e Encounter Details Date Type Department Care Team (Late st Contact Info) Description 10/23/1999 17:51 EST Hospital Encounter [facility] - Other [address] [place] [address] Kinjal Pugh MD [address] [place], [place] [phone] Unknown, Provider, MD Discharge Disposition: Auto Discharge Social History Tobacco [...]
--- OUTSIDE RECORDS SUMMARY | 2024-09-13 15:14 | XMS_ITS | Encounter Summary ---
Author Organization [facility] Address [address] [place] [address] Care Team Providers Care Cutting And Boning Supervisor Name Role Phone Unavailable Primary Care Provider Unavailabl e Encounter Details Date Type Department Care Team (Latest Contact Info) Description 03/14/2000 22:53 EDT Hospital Encounter [facility] - Other [address] [place] [address] Humberto Mccann MD Unknown, Provider, Discharge Disposition: Auto Discharge Social History Tobacco [...]
--- OUTSIDE RECORDS SUMMARY | 2024-09-13 15:14 | XMS_ITS | Encounter Summary ---
Author Organization [facility] Address [address] [place] [address] Care Team Providers Care Briar Shop Supervisor Name Role Phone Unavailable Primary Care Provider Unavailabl e Encounter Details Date Type Department Care Team (Late st Contact Info) Description 07/19/1999 15:[address] [facility] - Other [address] [place] [address] [place] Jean Baptiste MD [address] [place] [address] [phone] Unknown, Provider, Social History Tobacco Use Types [...]
--- OUTSIDE RECORDS SUMMARY | 2024-09-13 15:14 | XMS_ITS | Encounter Summary ---
Author Organization [facility] Address [address] [place] [address] Care Team Providers Care Document Clerk Name Role Phone Unavailable Primary Care Provider Unavailabl e Encounter Details Date Type Department Care Team (Late st Contact Info) Description 01/13/2002 15:04 EST - 01/20/2002 11:59 EST Hospital Encounter [facility] Mother/Baby Unit [address] [place], [place] [id number] Mindi Delgado MD [address] [phone] Ángela Harvey MD [address] [phone] Discharge Disposition: Home-Health Care Svc Social History Tobacco Use Types Packs/Day Years Used Date Smoking Tobacco: Never Assessed Comments Unknown Sex and Gender Information Value Date Recorded Sex Assigned at Not on file Legal Sex Female 17:36 EST Gender Identity Not on file Sexual Orientation Not on file documented as of this encounter Discharge Disposition Disposition Code Departure Means Destination Home-Health Care Svc documented in this encounter Plan of Treatment Not on file documented as of this encounter Procedures Procedure Name Priority Date/Time Associated Diagnosis Comments COMPLETE BLOOD COUNT Routine 01/19/2002 7:40 EST SURGICAL PATHOLOGY Routine 01/18/2002 0: 00 EST HEMAGRAM & DIFF Routine 01/17/2002 7:20 EST HEMAGRAM & DIFF Routine 01/16/2002 8:20 EST HEMAGRAM & DIFF Routine 01/15/2002 22:15 EST C REACTIVE PROTEIN Routine 01/15/2002 22 :15 EST HEMAGRAM & DIFF Routine 01/15/2002 8:10 EST HEMAGRAM & DIFF Routine 01/14/2002 10:45 EST HEMAGRAM & DIFF Routine 01/13/2002 16:05 EST GROUP B STREPTOCOCCUS SUSCEPTIBILITY Routine 01/13/2002 16:00 EST documented in this encounter Results * (ABNORMAL) HEMAGRAM (01/19/2002 7:40 EST) WBC 10.75 4.0 - 12.4 K/cmm [facility] RBC 2.98(L) 3.86 - 5.04 M/cmm [facility] Hemoglobin 9.1(L) 11.6 - 15.2 gm/dl [facility] HCT 26.6(L) 34.9 - 44.4 % [facility] MCV 89 81 - 98 fl [facility] MCH 30.5 26.7 - 33.3 pg [facility] MCHC 34.1 32.1 - 35.9 gm/dl [facility] PLT 240 141 - 320 K/cmm [facility] RDW-CV 13.0 11.7 - 14.6 % [facility] 01/19/2002 7:40 EST 01/19/2002 7:56 EST us Ángela Harvey MD HEMATOLOGY & PF4 ORDERAB LES Final Result [facility] [address] [place] [address] * SURGICAL PATHOLOGY (01/18/2002 0:00 EST) Pathology Report: SURGICAL PATHOLOGY REPORT Reports generated via electronic interface contain original data; however they are lacking the format of the original report. Caution should be taken when reading/interpreti ng unformatted reports. Name: ? GIDEON ARANA ? Accession #: ? [id number] ? : ? 1980 (Age: 21) ??F ? Collect Date: ? 01/18/2002 ? Location: ? [facility] ? Receive Date: ? 01/18/2002 ? Provider: ÁNGELA HARVEY MD Copy to: KIKA HATCH MD ? Final Pathologic Diagnosis: ? Late third trimester castro placenta with no abnormalities. Document reviewed and electronically signed by: Aniya Cao MD Report ??Date: 01/31/2002 08:50 By the signature above, the attending physician certifies that he/she has personally conducted a gross and/or microscopic examination of the described specimens and rendered or confirmed the above diagnosis. Specimen(s) Received: ? Placenta Clinical History: ? P prom at 33+2; at 34+1 wks; ; S/P ; ; LMP 05/21/01 Gross Description: ? Received fresh labelled Tesfaye is a castro placenta with attached membranes and umbilical cord. ??The umbilical cord is eccentrically inserted 4.5 cm from the nearest placental margin and measures 45.0 x 1.0 cm. It is silva-white and shiny with four false knots at the distal end. ??There is a green-silva discoloration which covers approximately 5-10% of the surface of the cord. ??Serial sectioning reveals three vessels. ??The membranes are silva-pink and translucent. ??They have a marginal insertion. ??The placental is roughly oval and weighs 520 grams after removal of the cord and membranes. ??It measures 19.0 x 15.0 x 1.8 cm. ??The surface is blue-trejo with a normal arborizing vascular pattern. ??There are six focal areas of subchorionic fibrin measuring 1.0 x 1.0 cm to 2.0 x 1.0 cm. ??These areas are located at the central part of the disc. ??The maternal surface is composed of multiple, deep red cotyledons which are intact. ??Serial sections reveal a red, homogeneous cut surface. ??Sections are submitted as follows: BLOCK CENTENO ? A1 ? Two office services representative sections of umbilical cord and one office services representative section of membranes ? A2, A3 ?Two office services representative sections of central placental disc (Dr. Soriano-)/dtl ?? End of Report [facility] 01/18/2002 01/18/2002 10: 29 EST Ángela Harvey MD PATHOLOGY ORDERABLES Fin al Result Performing Organization Address City/State/[facility] Co de Phone Number [facility]ENDE[facility] [address] [place] [address] * (ABNORMAL) HEMAGRAM & DIFF (01/17/2002 7:20 EST) WBC 11.55 4.0 - 12.4 K/cmm [facility] RBC 3.68(L) 3.86 - 5.04 M/cmm [facility] Hemoglobin 11.3(L) 11.6 - 15.2 gm/dl [facility] HCT 32.7(L) 34.9 - 44.4 % [facility] MCV 89 81 - 98 fl [facility] MCH 30.8 26.7 - 33.3 pg [facility] MCHC 34.6 32.1 - 35.9 gm/dl [facility] PLT 253 141 - 320 K/cmm [facility] RDW-CV 13.2 11.7 - 14.6 % [facility] Neutrophils 74 45.5 - 79.7 % [facility] % Bands 1 % [facility] Lymphocytes 18 15.0 - 46.8 % [facility] Monocytes 3 1.8 - 12.0 % [facility] Eosinophils 2 0.6 - 6.9 % [facility] % Metamyelocytes 2 % [facility] ABS Neutrophils 8.54 2.20 - 8.85 K/cmm [facility] ABS Bands 0.12 K/cmm [facility] ABS Lymphs 2.08 1.09 - 3.30 K/cmm [facility] ABS Monocytes 0.35 0.1 - 0.8 K/cmm [facility] ABS Eosinophils 0.23 0.03 - 0.61 K/cmm [facility] ABS Metamyelocytes 0.23 K/cmm [facility] RBC Morphology 1+ Anisocytosis [facility] Type of Diff: Manual [facility] 01/17/2002 7:20 EST 01/17/2002 8:13 EST Ángela Harvey MD HISTORICAL LAB FOR SQ LO AD Final Result [facility] [address] [place] [address] * (ABNORMAL) HEMAGRAM & DIFF (01/16/2002 8:20 EST) WBC 11.33 4.0 - 12.4 K/cmm [facility] RBC 3.67(L) 3.86 - 5.04 M/cmm [facility] Hemoglobin 11.4(L) 11.6 - 15.2 gm/dl [facility] HCT 32.9(L) 34.9 - 44.4 % [facility] MCV 90 81 - 98 fl [facility] MCH 31.1 26.7 - 33.3 pg [facility] MCHC 34.7 32.1 - 35.9 gm/dl [facility] PLT 248 141 - 320 K/cmm [facility] RDW-CV 13.3 11.7 - 14.6 % [facility] % Neutrophils 78.8 45.5 - 79.7 % [facility] % Lymphocytes 14.9(L) 15.0 - 46.8 % [facility] % Monocytes 4.8 1.8 - 12.0 % [facility] % Eosinophils 1.2 0.6 - 6.9 % [facility] % Basophils 0.3 0.2 - 1.4 % [facility] ABS Neutrophils 8.94(H) 2.20 - 8.85 K/cmm [facility] ABS Lymphs 1.68 1.09 - 3.30 K/cmm [facility] ABS Monocytes 0.54 0.1 - 0.8 K/cmm [facility] ABS Eosinophils 0.14 0.03 - 0.61 K/cmm [facility] ABS Basophils 0.03 0.01 - 0.11 K/cmm [facility] Type of Diff: Automated [facility] 01/16/2002 8:20 EST 01/16/2002 8:25 EST Ángela Harvey MD HISTORICAL LAB FOR SQ LO AD Final Result Performing Organization Address [facility] Co de Phone Number [facility] [address] [place] [address] * (ABNORMAL) C-REACTIVE PROTEIN (01/15/2002 22:15 EST) Pathologist [facility] C-Reactive Protein 1.1(H) <1.0 mg/dl [facility] 01/15/2002 22:1 5 EST 01/15/2002 22:19 EST Ángela Harvey MD CHEMISTRY & BLOOD GAS OR DERABLES Final Result Performing Organization Address [facility] Co de Phone Number [facility] [address] [place] [address] * (ABNORMAL) HEMAGRAM & DIFF (01/15/2002 22:15 EST) WBC 10.07 4.0 - 12.4 K/cmm [facility] RBC 3.43(L) 3.86 - 5.04 M/cmm [facility] Hemoglobin 10.6(L) 11.6 - 15.2 gm/dl [facility] HCT 30.8(L) 34.9 - 44.4 % [facility] MCV 90 81 - 98 fl [facility] MCH 30.8 26.7 - 33.3 pg [facility] MCHC 34.3 32.1 - 35.9 gm/dl [facility] PLT 246 141 - 320 K/cmm [facility] RDW-CV 13.1 11.7 - 14.6 % [facility] Neutrophils 76 45.5 - 79.7 % [facility] Lymphocytes 19 15.0 - 46.8 % [facility] Monocytes 3 1.8 - 12.0 % [facility] Eosinophils 2 0.6 - 6.9 % [facility] ABS Neutrophils 7.66 2.20 - 8.85 K/cmm [facility] ABS Lymphs 1.91 1.09 - 3.30 K/cmm [facility] ABS Monocytes 0.30 0.1 - 0.8 K/cmm [facility] ABS Eosinophils 0.20 0.03 - 0.61 K/cmm [facility] RBC Morphology Normal [facility] Type of Diff: Manual [facility] 01/15/2002 22:1 5 EST 01/15/2002 22:19 EST us Ángela Harvey MD HISTORICAL LAB FOR SQ LO AD Final Result [facility] [address] [place] [address] * (ABNORMAL) HEMAGRAM & DIFF (01/15/2002 8:10 EST) WBC 9.86 4.0 - 12.4 K/cmm [facility] RBC 3.42(L) 3.86 - 5.04 M/cmm [facility] Hemoglobin 10.7(L) 11.6 - 15.2 gm/dl [facility] HCT 30.5(L) 34.9 - 44.4 % [facility] MCV 89 81 - 98 fl [facility] MCH 31.3 26.7 - 33.3 pg [facility] MCHC 35.0 32.1 - 35.9 gm/dl [facility] PLT 226 141 - 320 K/cmm [facility] RDW-CV 13.2 11.7 - 14.6 % [facility] % Neutrophils 75.3 45.5 - 79.7 % [facility] % Lymphocytes 17.8 15.0 - 46.8 % [facility] % Monocytes 5.4 1.8 - 12.0 % [facility] % Eosinophils 1.3 0.6 - 6.9 % [facility] % Basophils 0.2 0.2 - 1.4 % [facility] ABS Neutrophils 7.41 2.20 - 8.85 K/cmm [facility] ABS Lymphs 1.76 1.09 - 3.30 K/cmm [facility] ABS Monocytes 0.53 0.1 - 0.8 K/cmm [facility] ABS Eosinophils 0.13 0.03 - 0.61 K/cmm [facility] ABS Basophils 0.02 0.01 - 0.11 K/cmm [facility] Type of Diff: Automated [facility] 01/15/2002 8:10 EST 01/15/2002 8:14 EST us Ángela Harvey MD HISTORICAL LAB FOR SQ LO AD Final Result [facility] [address] [place] [address] * (ABNORMAL) HEMAGRAM & DIFF (01/14/2002 10:45 EST) WBC 9.74 4.0 - 12.4 K/cmm [facility] RBC 3.54(L) 3.86 - 5.04 M/cmm [facility] Hemoglobin 11.0(L) 11.6 - 15.2 gm/dl [facility] HCT 32.0(L) 34.9 - 44.4 % [facility] MCV 90 81 - 98 fl [facility] MCH 30.9 26.7 - 33.3 pg [facility] MCHC 34.2 32.1 - 35.9 gm/dl [facility] PLT 242 141 - 320 K/cmm [facility] RDW-CV 13.0 11.7 - 14.6 % [facility] % Neutrophils 78.0 45.5 - 79.7 % [facility] % Lymphocytes 15.6 15.0 - 46.8 % [facility] % Monocytes 5.2 1.8 - 12.0 % [facility] % Eosinophils 1.1 0.6 - 6.9 % [facility] % Basophils 0.1(L) 0.2 - 1.4 % [facility] ABS Neutrophils 7.60 2.20 - 8.85 K/cmm [facility] ABS Lymphs 1.52 1.09 - 3.30 K/cmm [facility] ABS Monocytes 0.51 0.1 - 0.8 K/cmm [facility] ABS Eosinophils 0.10 0.03 - 0.61 K/cmm [facility] ABS Basophils 0.01 0.01 - 0.11 K/cmm [facility] Type of Diff: Automated [facility] 01/14/2002 10:4 5 EST 01/14/2002 10:56 EST us Ángela Harvey MD HISTORICAL LAB FOR SQ LO AD Final Result [facility] [address] [place] [address] * (ABNORMAL) HEMAGRAM & DIFF (01/13/2002 16:05 EST) WBC 14.04(H) 4.0 - 12.4 K/cmm [facility] RBC 3.73(L) 3.86 - 5.04 M/cmm [facility] Hemoglobin 11.5(L) 11.6 - 15.2 gm/dl [facility] HCT 32.9(L) 34.9 - 44.4 % [facility] MCV 88 81 - 98 fl [facility] MCH 30.9 26.7 - 33.3 pg [facility] MCHC 35.0 32.1 - 35.9 gm/dl [facility] PLT 267 141 - 320 K/cmm [facility] RDW-CV 13.1 11.7 - 14.6 % [facility] Neutrophils 74 45.5 - 79.7 % [facility] Lymphocytes 15 15.0 - 46.8 % [facility] Monocytes 6 1.8 - 12.0 % [facility] Eosinophils 4 0.6 - 6.9 % [facility] % Metamyelocytes 1 % [facility] ABS Neutrophils 10.39(H) 2.20 - 8.85 K/cmm [facility] ABS Lymphs 2.11 1.09 - 3.30 K/cmm [facility] ABS Monocytes 0.84(H) 0.1 - 0.8 K/cmm [facility] ABS Eosinophils 0.56 0.03 - 0.61 K/cmm [facility] ABS Metamyelocytes 0.14 K/cmm [facility] RBC Morphology Normal [facility] Type of Diff: Manual [facility] 01/13/2002 16:0 5 EST 01/13/2002 16:31 EST Ángela Harvey MD HISTORICAL LAB FOR SQ LO AD Final Result Performing Organization Address [facility] Co de Phone Number [facility] [address] [place] [address] * GROUP B STREPTOCOCCUS SUSCEPTIBILITY (01/13/2002 16:00 EST) Specimen Description Vaginal and Rectal [facility] Result NO GROUP B BETA STREPTOCOCCI ISOLATED [facility] Report Status Final [id number] [facility] 01/13/2002 16:0 0 EST 01/13/2002 16:46 EST Ángela Harvey MD HISTORICAL LAB FOR SQ LO AD Final Result [facility] [address] [place] [address] documented in this encounter Visit Diagnoses Not on filedocumented in this encounter
[2024-09-13 15:33] LABS: Folate > 20.0 ng/mL (8.6-20.0)
== END 2024-09-13 15:11 | disposition home or self-care (01) ==
LOC: NCHCN 15:10
PROVIDERS: PCP Nurse Practitioner Family; Visit Provider Nurse Practitioner Family
DX: E11.9 Type 2 diabetes mellitus without complications (principal); E55.9 Vitamin D deficiency, unspecified
CPT/HCPCS: 80053; 80061; 82306; 82607; 82746; 83036; 85025

== ENCOUNTER 2025-05-16 19:02 | Outpatient (REF) | payer MEDICARE, SELFPAY ==
[2025-05-16 19:36] LABS: Microalb ug/mg Crea 6.1 ug/mg Cr
== END 2025-05-16 19:03 | disposition home or self-care (01) ==
LOC: NCHCN 19:02
PROVIDERS: PCP Nurse Practitioner Family; Visit Provider Nurse Practitioner Family
DX: E11.9 Type 2 diabetes mellitus without complications (principal)
CPT/HCPCS: 82043; 82570

== ENCOUNTER 2025-08-01 01:16 | Outpatient (CLI) | payer MEDICARE, MEDICAID, SELFPAY ==
--- NOTE | 2025-08-01 | DI.MAMMO_ITS ---
Exam(s) MAMMO SCREENING EXAM: MAMMO SCREENING CLINICAL HISTORY: SCREENING,Z12.31 TECHNIQUE: Bilateral full field digital CC and MLO mammographic images were obtained with 3D tomosynthesis and utilizing computer aided detection (CAD). COMPARISON: Comparison is made with prior examinations. FINDINGS: Masses/Architectural Distortion: No suspicious masses or areas of architectural distortion are present. Microcalcifications: No suspicious pleomorphic-type are seen. Skin Thickening/Nipple Retraction: None. IMPRESSION: 1. No significant interval change with no specific features of malignancy noted. 2. Unless there is more urgent need, screening mammography is recommended, as per [place] [employer] guidelines. BI-RADS Category 1 - Negative Breast Density - Category A - The breast are almost entirely fatty. Breast density Category C or D implies that the patient has dense breast tissue. Dense breast tissue can make it harder to find cancer on a mammogram. Dense breast tissue is also associated with an increased risk of breast cancer. This information about the result of the mammogram report was provided to the patient to raise their awareness. Use this report when you speak with the patient about their risks for breast cancer, which includes their family history. At that time, you may recommend additional screening tests (Ultrasound or MRI) as these tests may add significant information. A negative radiographic report should not delay biopsy if a dominant or clinically suspicious mass is present. Up to ten percent of cancers are not identified on mammography. A negative report may reinforce clinical impression. Adenosis and dense breasts may obscure an underlying neoplasm. False positive reports average 6 to 10%. Patient will receive a letter notifying them of these results.
== END 2025-08-01 01:36 ==
LOC: DI 01:17
PROVIDERS: PCP Nurse Practitioner Family; Visit Provider Family Medicine
DX: Z12.31 Encounter for screening mammogram for malignant neoplasm of breast (principal)
CPT/HCPCS: 77063; 77067

== ENCOUNTER 2025-08-17 12:27 | Outpatient (REF) | payer MEDICARE, MEDICAID, SELFPAY ==
[2025-08-17 16:07] LABS: Abs Immature Grans 0.02 10^3/uL (0.0-0.06); HCT 39.5 % (36.0-46.0); HGB 12.6 g/dL (11.2-15.7); Immature Grans % 0.3 %; MCH 28.7 pg (27.0-33.0); MCHC 31.9 % (32.0-36.0); MCV 90 fL (80-95); MPV 10.3 fL (8.0-11.0); Platelet Count 375 10^3/uL (130-400); RBC 4.39 10^6/uL (3.93-5.22); RDW 13.7 % (11.7-14.6); RDW-SD 44.8 fL; WBC 6.54 10^3/uL (4.4-10.8)
[2025-08-17 16:29] LABS: Iron 64 ug/dL (50-170)
[2025-08-17 16:45] LABS: ALT 36 U/L (14-59); AST 19 U/L (15-37); Albumin 4.0 g/dL (3.4-5.0); Alkaline Phosphatase 76 U/L (46-116); Anion Gap 11.6 mmol/L (3-11); BUN 23 mg/dL (7-18); Bilirubin, Total 0.5 mg/dL (0.2-1.0); CO2 26.4 mmol/L (21.0-32.0); Calcium 9.5 mg/dL (8.5-10.1); Chloride 98 mmol/L (98-107); Estimated GFR 56.54 (mL/min/1.73m2); Folate > 20.0 ng/mL (8.6-20.0); Glucose 108 mg/dL (74-106); Potassium 4.2 mmol/L (3.5-5.1); Sodium 136 mmol/L (136-145); Total Protein 8.0 g/dL (6.4-8.2)
[2025-08-17 16:54] LABS: Hemoglobin A1C 6.3 % (<5.7)
[2025-08-23 14:20] LABS: 1,25-Dihydroxyvitamin D 50 pg/mL (18-78)
== END 2025-08-17 12:28 | disposition home or self-care (01) ==
LOC: NCHCN 12:27
PROVIDERS: PCP Nurse Practitioner Family; Visit Provider Nurse Practitioner Family
DX: E55.9 Vitamin D deficiency, unspecified (principal); N28.9 Disorder of kidney and ureter, unspecified; D52.9 Folate deficiency anemia, unspecified; E11.9 Type 2 diabetes mellitus without complications
CPT/HCPCS: 80053; 82652; 82746; 83036; 83540; 85025

== ENCOUNTER 2025-09-25 16:47 | Emergency (ER) | payer MEDICARE, MEDICAID, SELFPAY ==
[2025-09-25 16:49] VITALS: BP 141/101; PULSE 107; RESP 18; TEMP 36.6; O2SAT 96
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
[2025-09-25] MEDS: Acetaminophen 500 MG TAB 1000 MG PO (17:37)
--- NOTE | 2025-09-25 17:51 | DI.RAD_ITS ---
Exam(s) XR HAND RT COMPLETE EXAM: XR HAND RT COMPLETE CLINICAL HISTORY: pain to 1st + 2nd fingers after blunt trauma. TECHNIQUE: 2D digital imaging was performed of the right hand. Three images were obtained. AP, lateral and oblique views were obtained. COMPARISON: No exams were available for comparison FINDINGS: BONES: No acute fracture is present. No bony destructive lesion is seen. JOINTS: No dislocation present. SOFT TISSUE: Normal. IMPRESSION: There is no acute fracture or dislocation present. DATA REPOSITORY: RADIATION DOSE DELIVERED:
[2025-09-25 18:44] VITALS: BP 122/88; PULSE 99; RESP 16; O2SAT 94
== END 2025-09-25 18:45 | disposition home or self-care (01) ==
PROVIDERS: Emergency Provider Nurse Practitioner Family; PCP Nurse Practitioner Family
DX: S60.221A Contusion of right hand, initial encounter (principal); F17.210 Nicotine dependence, cigarettes, uncomplicated; W23.0XXA Caught, crushed, jammed, or pinched between moving objects, initial encounter; Y93.E9 Activity, other interior property and clothing maintenance; Y92.018 Other place in single-family (private) house as the place of occurrence of the external cause
CPT/HCPCS: 99283; 73130